=== PATIENT | female | born 1930 | race Hispanic/Latino ===

== ENCOUNTER 2016-09-10 18:50 | Inpatient (IN) | payer MEDICARE ==
[2016-09-10 18:58] VITALS: BMI 18.1
[2016-09-10] MEDS ORDERED: Sodium Chloride 0.9% 1,000 ML IV STA ×2 (19:00→21:54)
--- NOTE | 2016-09-10 19:23 | ED PDOC ---
Arrival/HPI - General Chief Complaint: Fever Time Seen by Provider: 09/10/16 18:51 - History of Present Illness Narrative History of Present Illness (Text): 09/10/16 19:31 An 86 year old female, whose past medical history includes L spine and pelvis fracture, hypertension and mood disorder, was sent from custodial to the emergency department for fever of 101.5, chest congestion and altered mental status. Limited HPI due to AMS. Symptom Onset: Sudden Symptom Course: Unchanged Activities at Onset: Rest Context: Other (custodial) Past Medical History - Provider Review Nursing Documentation Reviewed: Yes - Reproductive Menopause: Yes - Cardiac Hx Hypertension: Yes - Musculoskeletal/Rheumatological Hx Fractures: Yes (lumbar) - Gastrointestinal Hx Gastroesophageal Reflux: Yes - Genitourinary/Gynecological Hx Urinary Tract Infection: Yes - Psychiatric Hx Substance Use: No Family/Social History - Physician Review Nursing Documentation Reviewed: Yes Family/Social History: No Known Family HX Smoking Status: Never Smoked Hx Alcohol Use: No Hx Substance Use: No Allergies/Home Meds Allergies/Adverse Reactions: Allergies Penicillins Allergy (Verified 09/10/16 18:59) RASH Home Medications: Home Meds Medication Instructions Recorded Confirmed Acetaminophen [Tylenol 325mg tab] 325 mg PO Q4 09/10/16 09/10/16 Cholecalciferol (Vitamin D3) 5,000 unit PO DAILY 09/10/16 09/10/16 [Vitamin D3] Diltiazem HCl [Cardizem] 60 mg PO BID 09/10/16 09/10/16 Divalproex [Depakote Sprinkles] 250 mg PO Q8 09/10/16 09/10/16 Docusate [Colace] 100 mg PO BID 09/10/16 09/10/16 Folic Acid/Vit B Complex and C 1 tab PO DAILY 09/10/16 09/10/16 [Chery-Cady] LORazepam [Ativan] 0.5 mg PO TID PRN 09/10/16 09/10/16 Sennosides [Senna] 8.6 mg PO BID 09/10/16 09/10/16 traZODone [trazODONE HYDROCHLORIDE] 50 mg PO HS 09/10/16 09/10/16 Review of Systems - Review of Systems Systems not reviewed;Unavailable: Altered Mental Status Constitutional: Fevers (101.5) Cardiovascular: Other (chest congestion) Physical Exam - Physical Exam Physical Exam Limitations: Altered Mental Status Vital Signs Reviewed: Yes Vital Signs Pulse Resp BP Pulse Ox 09/10/16 20:01 83 18 143/58 L 98 Temperature: Afebrile (99.5 rectal) Blood Pressure: Hypotensive Pulse: Regular Respiratory Rate: Normal Appearance: Positive for: Ill-Appearing, Other (elderly, white female, nonverbal , contracted) Pain Distress: None () Mental Status: Positive for: Lethargic, other (AMS) - Systems Exam Head: Present: Atraumatic, Normocephalic Pupils: Present: PERRL Conjunctiva: Present: Other (pale) Mouth: Present: Dry Pharnyx: No: ERYTHEMA Respiratory/Chest: Present: Decreased Breath Sounds. No: Respiratory Distress Cardiovascular: Present: Regular Rate and Rhythm, Normal S1, S2. No: Murmurs Abdomen: Present: Normal Bowel Sounds. No: Tenderness, Distention, Peritoneal Signs Upper Extremity: Present: Normal Inspection. No: Cyanosis, Edema Lower Extremity: Present: Other (contracted). No: Edema Neurological: No: Speech Normal Skin: Present: Warm, Dry, Normal Color. No: Rashes Psychiatric: Present: Lethargic Medical Decision Making ED Course and Treatment: 09/10/16 19:20 Impression: An 86 year old female with fever of 101.5, chest congestion and altered mental status. Differential Diagnosis included but are not limited to: pneumonia vs electrolyte abnormality vs uti vs cva/tia Plan: -- EKG -- chest xray -- CT head -- labs -- IV fluids -- Urinalysis -- Reassess and disposition Progress Notes: 09/10/16 19:21 Chest xray: No active disease, interpreted by me. EKG: Ordered, reviewed, and independently interpreted the EKG. Rate : 82 BPM Rhythm : NSR Interpretation : QRS 130, nonspecific intraventricular conduction delay, normal axis, no ST/T changes. CT Head Without Intravenous Contrast FINDINGS: Brain: Moderate atrophy. No intracranial hemorrhage. No mass. Several scattered foci of decreased attenuation within periventricular/subcortical white matter. 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 No definite edema. Ventricles: No hydrocephalus. Bones/joints: No acute fracture. Soft tissues: Small parotid calcification. Sinuses: Few tiny maxillary retention cysts. Mastoid air cells: No mastoid effusion. Orbits: Unremarkable as visualized. IMPRESSION: 1. Nonspecific white matter changes. Acute infarction may be CT occult within first 24 hours. If a focal deficit persists, consider followup CT or MRI for further evaluation. 2. Incidental/non-acute findings are described above. Dictated and Authenticated by: Dane Diego MD 09/10/2016 9:00 PM Eastern Time ([place] & [place]) 09/10/16 21:28 Low H and H. Blood transfusion ordered. Consent given over phone, with nephew Arnulfo Winters. 09/10/16 22:01 Patient had a fever at [place] of 101.5 prior to arrival and was given tylenol so temp is only 99.5 here. urine shows UTI; CXR is clear. Labs with low H/H as noted. Chemistry with profound prerenal azotemia. Given IV antibiotics. Will need to be admitted. Spoke with patient's nephew, Arnulfo ANDREW, who confirmed that patient is DNR/DNI and avoid any invasive procedures, including pressors and central line. Patient will be admitted to Dr. Prakash's service as discussed with her. - Lab Interpretations Lab Results: 09/10/16 19:50 09/10/16 19:50 Lab Results 09/10/16 20:52: Urine Color Yellow, Urine Appearance Cloudy, Urine pH 6.5, Ur Specific [place] 1.015, Urine Protein Negative, Urine Glucose (UA) Negative, Urine Ketones Negative, Urine Blood Moderate H, Urine Nitrate Negative, Urine Bilirubin Negative, Urine Urobilinogen 0.2, Ur Leukocyte Esterase Large H, Urine RBC 5 - 10, Urine WBC 5 - 10, Ur Epithelial Cells 4 - 5, Amorphous Sediment Few, Urine Bacteria Many 09/10/16 19:50: Sodium 136, Chloride 110 H, Potassium 5.3 H, Carbon Dioxide 26, Anion Gap 5 L, BUN 90 H, Creatinine 1.9 H, Est GFR ( Amer) 30, Est GFR ( Non-Af Amer) 25, Random Glucose 100, Calcium 9.5, Phosphorus 3.9, Magnesium 2.3 H, Total Bilirubin 0.5, Direct Bilirubin 0.5 H, AST 60 H, ALT 33, Alkaline Phosphatase 62, Lactate Dehydrogenase 705 H, Total Creatine Kinase 53, Troponin I < 0.01, NT-Pro-B Natriuret Pep 1160 H, Total Protein 5.3 L, Albumin 2.4 L, Globulin 2.9, Albumin/Globulin Ratio 0.8 L, Lipase 83, Plasma Cortisol PM Pending 09/10/16 19:50: pO2 52, VBG pH 7.35, VBG pCO2 48.0, VBG HCO3 26.5, VBG Total CO2 28.0, VBG O2 Sat (Calc) 93.0 H, VBG Base Excess 0.8, VBG Potassium 5.3 H, Sodium 138.0, Chloride 112.0 H, Glucose 109 H, Lactate 0.8, FiO2 21.0, Venous Blood Potassium 5.3 H 09/10/16 19:50: PT 10.8, INR 1.00, APTT 27.3 09/10/16 19:50: WBC 7.6, RBC 1.88 L, Hgb 6.4 L*, Hct 19.5 L*, MCV 103.7, MCH 34.0, MCHC 32.8, RDW 13.3, Plt Count 359, MPV 8.4, Gran % 85.2 H, Lymph % (Auto ) 8.8 L, [place] % (Auto) 5.9, Eos % (Auto) 0.0 L, Baso % (Auto) 0.1, Gran # 6.51 H , Lymph # 0.7 L, [place] # 0.5, Eos # 0.0, Baso # 0.01, ESR 96 H I have reviewed the lab results: Yes - RAD Interpretation Radiology Orders: 09/10/16 18:59 Brain [HEAD W/O CONTRAST] [CT] Stat CHEST PORTABLE [RAD] Stat - EKG Interpretation Interpreted by ED Physician: Yes Type: 12 lead EKG - Medication Orders Current Medication Orders: Aztreonam (Azactam 1 Gm) 100 mls @ 100 mls/hr IVPB STAT STA PRN Reason: Protocol Stop: 09/10/16 22:41 Vancomycin HCl 1 gm/ Sodium (Chloride) 250 mls @ 133.333 mls/hr IV STAT STA PRN Reason: Protocol Stop: 09/10/16 23:34 Discontinued Medications Sodium Chloride (Sodium Chloride 0.9%) 1,000 mls @ 999 mls/hr IV .Q1H1M STA Stop: 09/10/16 20:00 Last Admin: 09/10/16 19:58 Dose: 999 mls/hr - Scribe Statement The provider has reviewed the documentation as recorded by the Scribe Hasmukh Rodrigues Provider Scribe Attestation: All medical record entries made by the Scribe were at my direction and personally dictated by me. I have reviewed the chart and agree that the record accurately reflects my personal performance of the history, physical exam, medical decision making, and the department course for this patient. I have also personally directed, reviewed, and agree with the discharge instructions and disposition. Disposition/Present on Arrival - Present on Arrival Any Indicators Present on Arrival: No History of DVT/PE: No History of Uncontrolled Diabetes: No Urinary Catheter: No History of Decub. Ulcer: No History Surgical Site Infection Following: None - Disposition Have Diagnosis and Disposition been Completed?: Yes Diagnosis: Urinary tract infection, Renal insufficiency, Altered mental status Disposition: HOSPITALIZED Disposition Time: 20:30 Patient Plan: Admission Condition: FAIR
[2016-09-10 20:04] LABS: VENOUS BLOOD GAS BASE EXCESS 0.8 mmol/L (0.0-2.0); VENOUS BLOOD GAS PO2 52 mm/Hg (30-55); VENOUS BLOOD PH 7.35 (7.32-7.43)
[2016-09-10 20:08] LABS: BASO # 0.01 K/mm3 (0.0-2.0); BASO % 0.1 % (0.0-3.0); GRAN # 6.51 (1.4-6.5); GRAN % 85.2 % (50.0-68.0); LYMPH # 0.7 (1.2-3.4); LYMPH % 8.8 % (22.0-35.0); MEAN CELL VOLUME 103.7 fL (80.0-105.0); MEAN CORPUSCULAR HGB CONC 32.8 g/dl (31.0-37.0); MEAN PLATELET VOLUME 8.4 fl (7.0-11.0); MONO # 0.5 (0.1-0.6); MONO % 5.9 % (1.0-6.0); PLATELET COUNT 359 10^3/uL (120.0-450.0); RBC 1.88 10^6/uL (3.5-6.1); RED CELL DISTRIBUTION WIDTH 13.3 % (11.5-14.5); WHITE BLOOD COUNT 7.6 10^3/ul (4.5-11.0)
[2016-09-10 20:12] LABS: HEMOGLOBIN 6.4 gm/dL (12.0-16.0)
[2016-09-10 20:21] LABS: PARTIAL THROMBOPLASTIN TIME 27.3 Seconds (23.7-30.8); PROTHROMBIN TIME 10.8 Seconds (9.9-11.8)
[2016-09-10 20:38] LABS: ALB/GLOB RATIO 0.8 (1.1-1.8); ALBUMIN 2.4 g/dL (3.0-4.8); ALT/SGPT 33 U/L (7-56); AST/SGOT 60 U/L (15-39); BILIRUBIN,DIRECT 0.5 mg/dL (0.0-0.4); BLOOD UREA NITROGEN 90 mg/dL (7-21); CALCIUM 9.5 mg/dL (8.4-10.5); GFR AFRICAN-AMERICAN 30; GFR NON-AFRICAN AMERICAN 25; LIPASE 83 U/L (23-300); MAGNESIUM 2.3 mg/dL (1.7-2.2)
[2016-09-10 20:40] LABS: B-TYPE NATRIURETIC PEPTIDE 1160 pg/mL (0-450); TROPONIN I < 0.01 ng/mL
--- NOTE | 2016-09-10 21:01 | CT ---
EXAM: CT Head Without Intravenous Contrast CLINICAL HISTORY: 86 years old, female; Signs and symptoms; Patient HX: Alt ms TECHNIQUE: Axial computed tomography images of the head/brain without intravenous contrast. This CT exam was performed using one or more of the following dose reduction techniques: automated exposure control, adjustment of the mA and/or kV according to patient size, and/or use of iterative reconstruction technique. COMPARISON: No relevant prior studies available. FINDINGS: Brain: Moderate atrophy. No intracranial hemorrhage. No mass. Several scattered foci of decreased attenuation within periventricular/subcortical white matter. 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 No definite edema. Ventricles: No hydrocephalus. Bones/joints: No acute fracture. Soft tissues: Small parotid calcification. Sinuses: Few tiny maxillary retention cysts. Mastoid air cells: No mastoid effusion. Orbits: Unremarkable as visualized. IMPRESSION: 1. Nonspecific white matter changes. Acute infarction may be CT occult within first 24 hours. If a focal deficit persists, consider followup CT or MRI for further evaluation. 2. Incidental/non-acute findings are described above.
[2016-09-10 21:32] LABS: PH,URINE 6.5 (4.7-8.0); URINE BILIRUBIN NEGATIVE (NEGATIVE); URINE BLOOD MODERATE (NEGATIVE); URINE GLUCOSE (UA) NEGATIVE (NEGATIVE); URINE LEUKOCYTE ESTERASE LARGE Leu/uL (NEGATIVE); URINE NITRATE NEGATIVE (NEGATIVE); URINE PROTEIN NEGATIVE mg/dL (<30 mg/dL); URINE UROBILINOGEN 0.2 E.U./dL (<1 E.U./dL)
[2016-09-10 21:39] LABS: URINE COLOR YELLOW (YELLOW)
[2016-09-10 21:40] LABS: URINE APPEARANCE CLOUDY (CLEAR)
[2016-09-10 21:42] LABS: URINE AMORPHOUS SEDIMENT FEW; URINE BACTERIA MANY (NEG)
[2016-09-10] MEDS ORDERED: Aztreonam 1 Gm in NS 100mL 100 ML IVPB STA (21:42)
--- NOTE | 2016-09-10 23:50 | CP.PCM.HP ---
History of Present Illness - History of Present Illness History of Present Illness: An 86 year old female, whose past medical history includes L spine and pelvis fracture, hypertension and mood disorder, [facility] department for fever of 101.5, chest congestion and altered mental status. Limited HPI due to AMS. pt joseph dh/o anemia , admitted pt to icu , id consult called looking for anb Present on Admission - Present on Admission Any Indicators Present on Admission: No Review of Systems - Review of Systems Systems not reviewed;Unavailable: Altered Mental Status - Constitutional Constitutional: Anorexia, Daytime Sleepiness, Frequent Falls - EENT Eyes: As Per HPI Ears: As Per HPI Nose/Mouth/Throat: As Per HPI - Respiratory Respiratory: As Per HPI - Gastrointestinal Gastrointestinal: As Per HPI Past Patient History - Tetanus Immunizations Tetanus Immunization: Unknown - Past Social History Smoking Status: Never Smoked Cigar Use: Yes - CARDIAC Hx Hypertension: Yes - MUSCULOSKELETAL/RHEUMATOLOGICAL Hx Fractures: Yes (lumbar) - GASTROINTESTINAL Hx Gastroesophageal Reflux: Yes - GENITOURINARY/GYNECOLOGICAL Hx Urinary Tract Infection: Yes - PSYCHIATRIC Hx Substance Use: No Meds Allergies/Adverse Reactions: Allergies Allergy/AdvReac Type Severity Reaction Status Date / Time Penicillins Allergy RASH Verified 09/10/16 18:59 Physical Exam - Constitutional Appears: Well - Head Exam Head Exam: ATRAUMATIC, NORMAL INSPECTION, NORMOCEPHALIC - Eye Exam Eye Exam: Normal appearance, PERRL Pupil Exam: NORMAL ACCOMODATION - ENT Exam ENT Exam: Mucous Membranes Moist, Normal Exam - Neck Exam Neck exam: Positive for: Normal Inspection - Respiratory Exam Respiratory Exam: Clear to Auscultation Bilateral, NORMAL BREATHING PATTERN - Cardiovascular Exam Cardiovascular Exam: REGULAR RHYTHM - GI/Abdominal Exam GI & Abdominal Exam: Normal Bowel Sounds, Soft. absent: Tenderness - Rectal Exam Rectal Exam: NORMAL INSPECTION - Exam Exam: Circumcision, NORMAL INSPECTION External exam: NORMAL EXTERNAL EXAM Speculum exam: NORMAL SPECULUM EXAM Bimanual exam: NORMAL BIMANUAL EXAM - Extremities Exam Extremities exam: Positive for: normal inspection - Back Exam Back exam: NORMAL INSPECTION - Neurological Exam Neurological exam: Alert, CN II-XII Intact, Normal Gait, Oriented x3, Reflexes Normal - Psychiatric Exam Psychiatric exam: Normal Affect, Normal Mood - Skin Skin Exam: Dry, Intact, Normal Color, Warm Results - Vital Signs Recent Vital Signs: Last Vital Signs Temp Pulse 79 09/10/16 21:57 Resp 20 09/10/16 21:57 BP 130/54 L 09/10/16 21:57 Pulse Ox 98 09/10/16 21:57 - Labs Result Diagrams: 09/10/16 19:50 09/10/16 19:50 Labs: Laboratory Results - last 24 hr 09/10/16 21:54 Blood Type O POSITIVE Antibody Screen Negative Crossmatch See Detail BBK History Checked No verified bt Assessment & Plan (1) Altered mental status Status: Acute (2) Renal insufficiency Status: Acute (3) Urinary tract infection Status: Acute - Assessment and Plan (Free Text) Assessment: An 86 year old female, whose past medical history includes L spine and pelvis fracture, hypertension and mood disorder, was [facility] from [facility] to the emergency department for fever of 101.5, chest congestion and altered mental status. Limited HPI due to A, id consult called , getting anb
[2016-09-11 00:33] LABS: VENOUS BLOOD GAS BASE EXCESS -0.8 mmol/L (0.0-2.0); VENOUS BLOOD GAS PO2 40 mm/Hg (30-55); VENOUS BLOOD PH 7.34 (7.32-7.43)
--- NOTE | 2016-09-11 00:52 | CP.PCM.PCO ---
Physician Communication Note - Physician Communication Note Physician Communication Note: Chart reviewed. Aztreonam restarted.
[2016-09-11 08:31] LABS: MEAN CELL VOLUME 97.9 fL (80.0-105.0); MEAN CORPUSCULAR HEMOGLOBIN 32.4 pg (25.0-35.0); MEAN CORPUSCULAR HGB CONC 33.1 g/dl (31.0-37.0); MEAN PLATELET VOLUME 8.3 fl (7.0-11.0); RBC 2.87 10^6/uL (3.5-6.1); RED CELL DISTRIBUTION WIDTH 15.5 % (11.5-14.5); WHITE BLOOD COUNT 5.4 10^3/ul (4.5-11.0)
[2016-09-11 08:36] LABS: HEMOGLOBIN 9.3 gm/dL (12.0-16.0)
[2016-09-11 08:45] LABS: ALB/GLOB RATIO 0.8 (1.1-1.8); ALBUMIN 2.2 g/dL (3.0-4.8); CALCIUM 9.3 mg/dL (8.4-10.5)
--- NOTE | 2016-09-11 09:49 | RAD ---
HISTORY: Sepsis Patient COMPARISON: No prior. FINDINGS: LUNGS: No active pulmonary disease. PLEURA: No significant pleural effusion identified, no pneumothorax apparent. CARDIOVASCULAR: Normal. OSSEOUS STRUCTURES: No significant abnormalities. VISUALIZED UPPER ABDOMEN: Normal. OTHER FINDINGS: None. IMPRESSION: No active disease.
[2016-09-11] MEDS: Non Formulary Medication (Folic Acid/Vit B Complex And C [Rena-Vite Tablet] 1 TAB) PO SCH (11:10)
[2016-09-11 11:59] LABS: TOTAL IRON BINDING CAPACITY 194 ug/dL (265-497)
[2016-09-11 12:08] LABS: % IRON SATURATION 36 % (20-55); IRON 71 ug/dL (45-180)
[2016-09-11] MEDS: Aztreonam 1 Gm in NS 100mL 100 ML IVPB SCH ×2 (12:17→23:07)
[2016-09-11 13:13] LABS: CORTISOL PM 20.6 ug/dL (1.7-14.1)
[2016-09-11] MEDS: Divalproex 125 mg EC Sprinkle Cap PO SCH ×2 (14:00→21:43)
--- NOTE | 2016-09-11 15:23 | US ---
PROCEDURE: Ultrasound of the Kidneys HISTORY: [facility] COMPARISON: None available. TECHNIQUE: Sonogram of the kidneys. FINDINGS: RIGHT KIDNEY: Measures: With a 1.7 cm cyst seen at the upper midpole right kidney cm. Normal in size and contour with increased parenchymal echogenicity suggests of intrinsic medical renal disease. No obstructive uropathy. No stone, solid mass lesion or hydronephrosis visualized. Two small simple cyst identified in the upper pole right kidney adjacent to each other, measuring 1.9 cm greatest dimension at the more anterior of the 2 cysts and 1.5 cm greatest dimension the more posterior. The 3rd cyst measures 1.2 cm at the upper midpole region. All appear simple in character and are avascular on color Doppler ultrasound. LEFT KIDNEY: Measures: 8.1 x 4.3 by 4.1 cm. Normal in size and contour with increased parenchymal echogenicity suggests of intrinsic medical renal disease. No obstructive uropathy. No stone, solid mass lesion or hydronephrosis visualized. Two tiny simple cyst identified at the upper pole right kidney avascular on color Doppler ultrasound. The more cephalad measures 1.5 cm greatest dimension the more caudad measures 1.7 cm. OTHER FINDINGS: None. IMPRESSION: No obstructive uropathy is identified bilaterally. A few small simple renal cysts are identified at the bilateral kidneys as discussed above.
[2016-09-11 17:48] LABS: FOLATE > 20.0 ng/mL
[2016-09-11] MEDS: Sodium Chloride 0.9% 1,000 ML IV SCH (19:32)
--- NOTE | 2016-09-11 19:57 | CP.PCM.CON ---
History of Present Illness - History of Present Illness History of Present Illness: Infectious Disease Consultation: September 11, 2016 86 yo female brought in from senior care for AMS and fevers up to 101.5 F and findings of chest congestion. The patient has a history of hypertension, mood disorder, and history of fractures of the left spine and pelvis. She received 2U of PRBCs. The patient has stabilized since and is maintained with IV fluids. She is unable to provide much history however. PMHx: Hypertension, mood disorder PSHx: repair of left spine and pelvic fractures? Allergies: PCN Social Hx: No cigarette use but prior Cigar use No illicit substances No EtOH that I am aware of Active Medications Acetaminophen (Tylenol 325mg Tab) 325 mg PO Q4 [facility] Last Admin: 09/11/16 17:55 Dose: Not Given Cholecalciferol (Vitamin D) 5,000 iu PO DAILY [facility] Last Admin: 09/11/16 11:11 Dose: Not Given Diltiazem HCl (Cardizem) 60 mg PO BID [facility] Last Admin: 09/11/16 17:52 Dose: Not Given Divalproex Sodium (Depakote Sprinkles) 250 mg PO Q8 [facility] PRN Reason: Protocol Last Admin: 09/11/16 14:00 Dose: Not Given Docusate Sodium (Colace Liquid) 100 mg PO BID [facility] Last Admin: 09/11/16 17:55 Dose: Not Given Aztreonam (Azactam 1 Gm) 100 mls @ 100 mls/hr IVPB Q12 [facility] PRN Reason: Protocol Last Admin: 09/11/16 12:17 Dose: 100 mls/hr Sodium Chloride (Sodium Chloride 0.9%) 1,000 mls @ 100 mls/hr IV .Q10H [facility] Last Admin: 09/11/16 19:32 Dose: 100 mls/hr Non-Formulary Medication (Folic Acid/Vit B Complex And C [Chery-Cady Tablet]) 1 tab PO DAILY [facility] Last Admin: 09/11/16 11:10 Dose: Not Given Sennosides (Senokot Tab) 8.6 mg PO BID [facility] Last Admin: 09/11/16 17:55 Dose: Not Given Family Hx: Unable to Obtain ROS: Unable to Obtain Past Patient History - Tetanus Immunizations Tetanus Immunization: Unknown - Past Social History Smoking Status: Never Smoked Cigar Use: Yes - CARDIAC Hx Hypertension: Yes - MUSCULOSKELETAL/RHEUMATOLOGICAL Hx Fractures: Yes (lumbar) - GASTROINTESTINAL Hx Gastroesophageal Reflux: Yes - GENITOURINARY/GYNECOLOGICAL Hx Urinary Tract Infection: Yes - PSYCHIATRIC Hx Substance Use: No Meds Allergies/Adverse Reactions: Allergies Allergy/AdvReac Type Severity Reaction Status Date / Time Penicillins Allergy RASH Verified 09/10/16 18:59 - Medications Medications: Current Medications Acetaminophen (Tylenol 325mg Tab) 325 mg PO Q4 [facility] Last Admin: 09/11/16 17:55 Dose: Not Given Cholecalciferol (Vitamin D) 5,000 iu PO DAILY [facility] Last Admin: 09/11/16 11:11 Dose: Not Given Diltiazem HCl (Cardizem) 60 mg PO BID [facility] Last Admin: 09/11/16 17:52 Dose: Not Given Divalproex Sodium (Depakote Sprinkles) 250 mg PO Q8 [facility] PRN Reason: Protocol Last Admin: 09/11/16 14:00 Dose: Not Given Docusate Sodium (Colace Liquid) 100 mg PO BID [facility] Last Admin: 09/11/16 17:55 Dose: Not Given Aztreonam (Azactam 1 Gm) 100 mls @ 100 mls/hr IVPB Q12 [facility] PRN Reason: Protocol Last Admin: 09/11/16 12:17 Dose: 100 mls/hr Sodium Chloride (Sodium Chloride 0.9%) 1,000 mls @ 100 mls/hr IV .Q10H [facility] Last Admin: 09/11/16 19:32 Dose: 100 mls/hr Non-Formulary Medication (Folic Acid/Vit B Complex And C [Chery-Cady Tablet]) 1 tab PO DAILY [facility] Last Admin: 09/11/16 11:10 Dose: Not Given Sennosides (Senokot Tab) 8.6 mg PO BID [facility] Last Admin: 09/11/16 17:55 Dose: Not Given Physical Exam - Constitutional Appears: Non-toxic, No Acute Distress, Chronically Ill - Head Exam Head Exam: ATRAUMATIC, NORMOCEPHALIC - Eye Exam Eye Exam: EOMI, PERRL Pupil Exam: NORMAL ACCOMODATION, PERRL - ENT Exam ENT Exam: Mucous Membranes Moist, Normal External Ear Exam, TM's Normal Bilaterally - Neck Exam Neck exam: Positive for: Full Rom, Normal Inspection - Respiratory Exam Respiratory Exam: Clear to Auscultation Bilateral, NORMAL BREATHING PATTERN. absent: Rales, Rhonchi, Wheezes - Cardiovascular Exam Cardiovascular Exam: REGULAR RHYTHM, RRR, +S1, +S2 - GI/Abdominal Exam GI & Abdominal Exam: Normal Bowel Sounds, Soft. absent: Distended, Tenderness - Extremities Exam Extremities exam: Positive for: full ROM, normal inspection - Neurological Exam Neurological exam: Alert, CN II-XII Intact, Oriented x3 - Psychiatric Exam Psychiatric exam: Normal Affect, Normal Mood - Skin Skin Exam: Dry, Intact, Normal Color Results - Vital Signs Recent Vital Signs: Last Vital Signs Temp 97.3 F L 09/11/16 18:00 Pulse 78 09/11/16 18:00 Resp 18 09/11/16 18:00 BP 112/78 09/11/16 18:00 Pulse Ox 99 09/11/16 06:00 - Labs Result Diagrams: 09/11/16 08:28 09/11/16 08:28 Labs: Laboratory Results - last 24 hr 09/10/16 09/10/16 09/10/16 21:54 22:12 23:54 WBC RBC Hgb Hct MCV MCH MCHC RDW Plt Count MPV pO2 40 VBG pH 7.34 VBG pCO2 47.0 VBG HCO3 25.4 VBG Total CO2 26.8 VBG O2 Sat (Calc) 83.3 H VBG Base Excess -0.8 L VBG Potassium 5.4 H Sodium 146.0 Chloride 108.0 H Glucose 103 Lactate 0.6 L FiO2 21.0 Potassium Carbon Dioxide Anion Gap BUN Creatinine Est GFR ( Amer) Est GFR (Non-Af Amer) Random Glucose Calcium Iron TIBC % Saturation Transferrin Ferritin Total Bilirubin AST ALT Alkaline Phosphatase Total Protein Albumin Globulin Albumin/Globulin Ratio Vitamin B12 Folate Venous Blood Potassium 5.4 H Blood Type O POSITIVE Blood Type Confirm O POSITIVE Antibody Screen Negative Crossmatch See Detail BBK History Checked No verified bt 09/11/16 09/11/16 09/11/16 08:20 08:28 08:28 WBC 5.4 D RBC 2.87 L Hgb 9.3 L Hct 28.1 L MCV 97.9 MCH 32.4 MCHC 33.1 RDW 15.5 H Plt Count 290 MPV 8.3 pO2 VBG pH VBG pCO2 VBG HCO3 VBG Total CO2 VBG O2 Sat (Calc) VBG Base Excess VBG Potassium Sodium 141 Chloride 110 H Glucose Lactate FiO2 Potassium 4.6 Carbon Dioxide 24 Anion Gap 12 BUN 75 H Creatinine 1.7 H Est GFR ( Amer) 34 Est GFR (Non-Af Amer) 28 Random Glucose 78 Calcium 9.3 Iron TIBC % Saturation Transferrin Ferritin 202.0 Total Bilirubin 0.6 AST 33 ALT 34 Alkaline Phosphatase 57 Total Protein 4.9 L Albumin 2.2 L Globulin 2.7 Albumin/Globulin Ratio 0.8 L Vitamin B12 963 H Folate > 20.0 Venous Blood Potassium Blood Type Blood Type Confirm Antibody Screen Crossmatch BBK History Checked 09/11/16 09/11/16 11:30 11:30 WBC RBC Hgb Hct MCV MCH MCHC RDW Plt Count MPV pO2 VBG pH VBG pCO2 VBG HCO3 VBG Total CO2 VBG O2 Sat (Calc) VBG Base Excess VBG Potassium Sodium Chloride Glucose Lactate FiO2 Potassium Carbon Dioxide Anion Gap BUN Creatinine Est GFR ( Amer) Est GFR (Non-Af Amer) Random Glucose Calcium Iron 71 TIBC 194 L % Saturation 36 Transferrin 130.48 L Ferritin Total Bilirubin AST ALT Alkaline Phosphatase Total Protein Albumin Globulin Albumin/Globulin Ratio Vitamin B12 Folate Venous Blood Potassium Blood Type Blood Type Confirm Antibody Screen Crossmatch BBK History Checked Assessment & Plan - Assessment and Plan (Free Text) Assessment: 86 yo female brought in [facility] for [facility]MS, fevers up to 101.5, and mood disorder found to have severe anemia and a highly suggestive urinalysis for UTI. The patient is more awake now after 2 units of PRBCs were given. The patient has pancultures taken. Started on Aztreonam IV for antibiotic coverage due to the unknown reaction to PCN medications. She has been afebrile in the hospital so far. Fevers may have been secondary to dehydration and severe anemia if not a possible UTI. Await culture results to potentially deescalate antibiotic coverage if possible. Continue to monitor Hgb/Hct. Continue to monitor fever trend. Supportive care. Thank you for allowing me to participate in the care of the patient, we will follow with you.
[2016-09-11 22:25] LABS: ALB/GLOB RATIO 0.9 (1.1-1.8); ALBUMIN 2.4 g/dL (3.0-4.8); CALCIUM 9.5 mg/dL (8.4-10.5)
[2016-09-11 22:41] LABS: TROPONIN I 0.01 ng/mL
--- NOTE | 2016-09-11 23:01 | CP.PCM.PN ---
Subjective - Date & Time of Evaluation Date of Evaluation: 09/11/16 Time of Evaluation: 07:30 - Subjective Subjective: 86 yo [facility] for AMS and fevers up to 101.5 F and findings of chest congestion. The patient has a history of hypertension, mood disorder, and history of fractures of the left spine and pelvis. She received 2U of PRBCs. The patient has stabilized since and is maintained with IV fluids. She is unable to provide much history however. seen in tele , awake but non verbal Objective - Vital Signs/Intake and Output Vital Signs (last 24 hours): Temp Pulse Resp BP Pulse Ox 97.3 F L 78 18 112/78 99 09/11/16 18:00 09/11/16 18:00 09/11/16 18:00 09/11/16 18:00 09/11/16 06:00 Intake and Output: 09/11/16 09/12/16 18:59 06:59 Intake Total 335 Balance 335 - Medications Medications: Current Medications Acetaminophen (Tylenol 325mg Tab) 325 mg PO Q4 [facility] Last Admin: 09/11/16 21:42 Dose: 325 mg Albuterol/Ipratropium (Duoneb 3 Mg/0.5 Mg (3 Ml) Ud) 3 ml IH [id number] [facility] Cholecalciferol (Vitamin D) 5,000 iu PO DAILY [facility] Last Admin: 09/11/16 11:11 Dose: Not Given Diltiazem HCl (Cardizem) 60 mg PO BID [facility] Last Admin: 09/11/16 17:52 Dose: Not Given Divalproex Sodium (Depakote Sprinkles) 250 mg PO Q8 [facility] PRN Reason: Protocol Last Admin: 09/11/16 21:43 Dose: 250 mg Docusate Sodium (Colace Liquid) 100 mg PO BID [facility] Last Admin: 09/11/16 17:55 Dose: Not Given Aztreonam (Azactam 1 Gm) 100 mls @ 100 mls/hr IVPB Q12 [facility] PRN Reason: Protocol Last Admin: 09/11/16 12:17 Dose: 100 mls/hr Sodium Chloride (Sodium Chloride 0.9%) 1,000 mls @ 100 mls/hr IV .Q10H [facility] Last Admin: 09/11/16 19:32 Dose: 100 mls/hr Non-Formulary Medication (Folic Acid/Vit B Complex And C [Chery-Cady Tablet]) 1 tab PO DAILY [facility] Last Admin: 09/11/16 11:10 Dose: Not Given Sennosides (Senokot Tab) 8.6 mg PO BID [facility] Last Admin: 09/11/16 17:55 Dose: Not Given - Labs Labs: 09/11/16 08:28 09/11/16 22:09 PT 10.8 Seconds (9.9-11.8) 09/10/16 19:50 INR 1.00 (0.93-1.08) 09/10/16 19:50 APTT 27.3 Seconds (23.7-30.8) 09/10/16 19:50 - Constitutional Appears: Chronically Ill - Head Exam Head Exam: ATRAUMATIC, NORMAL INSPECTION, NORMOCEPHALIC - Eye Exam Eye Exam: EOMI, Normal appearance, PERRL Pupil Exam: NORMAL ACCOMODATION, PERRL - ENT Exam ENT Exam: Mucous Membranes Moist, Normal Exam - Neck Exam Neck Exam: Full ROM, Normal Inspection. absent: Lymphadenopathy - Respiratory Exam Respiratory Exam: Clear to Ausculation Bilateral, NORMAL BREATHING PATTERN - Cardiovascular Exam Cardiovascular Exam: REGULAR RHYTHM, +S1, +S2. absent: Murmur - GI/Abdominal Exam GI & Abdominal Exam: Soft, Normal Bowel Sounds. absent: Tenderness - Rectal Exam Rectal Exam: NORMAL INSPECTION - Exam Exam: Circumcision, NORMAL INSPECTION External exam: NORMAL EXTERNAL EXAM Speculum exam: NORMAL SPECULUM EXAM Bimanual exam: NORMAL BIMANUAL EXAM - Extremities Exam Extremities Exam: Full ROM, Normal Capillary Refill, Normal Inspection. absent : Joint Swelling, Pedal Edema - Back Exam Back Exam: NORMAL INSPECTION - Neurological Exam Neurological Exam: Alert, Awake, CN II-XII Intact - Psychiatric Exam Psychiatric exam: Normal Affect, Normal Mood - Skin Skin Exam: Dry, Normal Color, Warm Additional comments: sacral decubetus ulcer Assessment and Plan (1) Altered mental status Status: Acute (2) Renal insufficiency Status: Acute (3) Urinary tract infection Status: Acute (4) Anemia Status: Acute - Assessment and Plan (Free Text) Assessment: - Assessment and Plan (Free Text) 86 yo [facility] for [facility], fevers up to 101.5, and mood disorder found to have severe anemia and a highly suggestive urinalysis for UTI. The patient is more awake now after 2 units of PRBCs were given. The patient has pancultures taken. Started on Aztreonam IV for antibiotic coverage due to the unknown reaction to PCN medications. She has been afebrile in the hospital so far. Fevers may have been secondary to dehydration and severe anemia if not a possible UTI. Await culture results to potentially deescalate antibiotic coverage if possible. Continue to monitor Hgb/Hct. Continue to monitor fever trend.surgicle consult for decubetus ulcers
--- NOTE | 2016-09-12 00:35 | CP.PCM.CON ---
History of Present Illness - History of Present Illness History of Present Illness: General Surgery Dr. Melvin (covering Dr. Hill) 86 demented F w/ PMHx of HTN [facility]vers, AMS, and chest congestion. Surgery consulted for sacral decubitus ulcers. Pt altered and unable to answer questions. PMHx:Hypertension, mood disorder, dementia Meds: reviewed in chart All: PCN - unknown rxn PSHx: repair of left spine and pelvic fractures? SHx: denies tobacco, EtOH, drug use FHx: noncontributory Review of Systems - Review of Systems Systems not reviewed;Unavailable: Altered Mental Status Past Patient History - Tetanus Immunizations Tetanus Immunization: Unknown - Past Social History Smoking Status: Never Smoked Cigar Use: Yes - CARDIAC Hx Hypertension: Yes - MUSCULOSKELETAL/RHEUMATOLOGICAL Hx Fractures: Yes (lumbar) - GASTROINTESTINAL Hx Gastroesophageal Reflux: Yes - GENITOURINARY/GYNECOLOGICAL Hx Urinary Tract Infection: Yes - PSYCHIATRIC Hx Substance Use: No Meds Allergies/Adverse Reactions: Allergies Allergy/AdvReac Type Severity Reaction Status Date / Time Penicillins Allergy RASH Verified 09/10/16 18:59 - Medications Medications: Current Medications Acetaminophen (Tylenol 325mg Tab) 325 mg PO Q4 [facility] Last Admin: 09/11/16 21:42 Dose: 325 mg Albuterol/Ipratropium (Duoneb 3 Mg/0.5 Mg (3 Ml) Ud) 3 ml IH [id number] [facility] Cholecalciferol (Vitamin D) 5,000 iu PO DAILY [facility] Last Admin: 09/11/16 11:11 Dose: Not Given Diltiazem HCl (Cardizem) 60 mg PO BID [facility] Last Admin: 09/11/16 17:52 Dose: Not Given Divalproex Sodium (Depakote Sprinkles) 250 mg PO Q8 [facility] PRN Reason: Protocol Last Admin: 09/11/16 21:43 Dose: 250 mg Docusate Sodium (Colace Liquid) 100 mg PO BID [facility] Last Admin: 09/11/16 17:55 Dose: Not Given Aztreonam (Azactam 1 Gm) 100 mls @ 100 mls/hr IVPB Q12 [facility] PRN Reason: Protocol Last Admin: 09/11/16 23:07 Dose: 100 mls/hr Sodium Chloride (Sodium Chloride 0.9%) 1,000 mls @ 100 mls/hr IV .Q10H [facility] Last Admin: 09/11/16 19:32 Dose: 100 mls/hr Non-Formulary Medication (Folic Acid/Vit B Complex And C [Chery-Cady Tablet]) 1 tab PO DAILY [facility] Last Admin: 09/11/16 11:10 Dose: Not Given Sennosides (Senokot Tab) 8.6 mg PO BID [facility] Last Admin: 09/11/16 17:55 Dose: Not Given Physical Exam - Constitutional Appears: Non-toxic, No Acute Distress, Unkempt, Chronically Ill - Head Exam Head Exam: NORMAL INSPECTION - ENT Exam ENT Exam: Mucous Membranes Moist - Respiratory Exam Respiratory Exam: NORMAL BREATHING PATTERN. absent: Accessory Muscle Use, Respiratory Distress - Cardiovascular Exam Cardiovascular Exam: absent: Bradycardia, Tachycardia - GI/Abdominal Exam GI & Abdominal Exam: Soft. absent: Distended, Tenderness - Extremities Exam Additional comments: stage 1&2 b/l foot and ankle pressure ulcers Stage 3 R hip pressure wound Sacral decubitius pressure ulcer w/ eschar present - Neurological Exam Neurological exam: Altered - Skin Skin Exam: Dry, Normal Color, Warm Results - Vital Signs Recent Vital Signs: Last Vital Signs Temp 97.3 F L 09/11/16 18:00 Pulse 78 09/11/16 18:00 Resp 18 09/11/16 18:00 BP 112/78 09/11/16 18:00 Pulse Ox 99 09/11/16 06:00 - Labs Result Diagrams: 09/11/16 08:28 09/11/16 22:09 Labs: Laboratory Results - last 24 hr 09/10/16 09/10/16 09/11/16 21:54 23:54 08:20 WBC RBC Hgb Hct MCV MCH MCHC RDW Plt Count MPV pO2 40 VBG pH 7.34 VBG pCO2 47.0 VBG HCO3 25.4 VBG Total CO2 26.8 VBG O2 Sat (Calc) 83.3 H VBG Base Excess -0.8 L VBG Potassium 5.4 H Sodium 146.0 Chloride 108.0 H Glucose 103 Lactate 0.6 L FiO2 21.0 Potassium Carbon Dioxide Anion Gap BUN Creatinine Est GFR ( Amer) Est GFR (Non-Af Amer) Random Glucose Calcium Iron TIBC % Saturation Transferrin Ferritin 202.0 Total Bilirubin AST ALT Alkaline Phosphatase Lactate Dehydrogenase Total Creatine Kinase Troponin I Total Protein Albumin Globulin Albumin/Globulin Ratio Vitamin B12 963 H Folate > 20.0 Venous Blood Potassium 5.4 H Blood Type O POSITIVE Antibody Screen Negative Crossmatch See Detail BBK History Checked No verified bt 09/11/16 09/11/16 09/11/16 08:28 08:28 11:30 WBC 5.4 D RBC 2.87 L Hgb 9.3 L Hct 28.1 L MCV 97.9 MCH 32.4 MCHC 33.1 RDW 15.5 H Plt Count 290 MPV 8.3 pO2 VBG pH VBG pCO2 VBG HCO3 VBG Total CO2 VBG O2 Sat (Calc) VBG Base Excess VBG Potassium Sodium 141 Chloride 110 H Glucose Lactate FiO2 Potassium 4.6 Carbon Dioxide 24 Anion Gap 12 BUN 75 H Creatinine 1.7 H Est GFR ( Amer) 34 Est GFR (Non-Af Amer) 28 Random Glucose 78 Calcium 9.3 Iron 71 TIBC 194 L % Saturation 36 Transferrin Ferritin Total Bilirubin 0.6 AST 33 ALT 34 Alkaline Phosphatase 57 Lactate Dehydrogenase Total Creatine Kinase Troponin I Total Protein 4.9 L Albumin 2.2 L Globulin 2.7 Albumin/Globulin Ratio 0.8 L Vitamin B12 Folate Venous Blood Potassium Blood Type Antibody Screen Crossmatch BBK History Checked 09/11/16 09/11/16 11:30 22:09 WBC RBC Hgb Hct MCV MCH MCHC RDW Plt Count MPV pO2 VBG pH VBG pCO2 VBG HCO3 VBG Total CO2 VBG O2 Sat (Calc) VBG Base Excess VBG Potassium Sodium 142 Chloride 111 H Glucose Lactate FiO2 Potassium 4.5 Carbon Dioxide 23 Anion Gap 13 BUN 67 H Creatinine 1.5 H Est GFR ( Amer) 40 Est GFR (Non-Af Amer) 33 Random Glucose 79 Calcium 9.5 Iron TIBC % Saturation Transferrin 130.48 L Ferritin Total Bilirubin 0.6 AST 28 ALT 35 Alkaline Phosphatase 68 Lactate Dehydrogenase 538 Total Creatine Kinase 48 Troponin I 0.01 Total Protein 5.2 L Albumin 2.4 L Globulin 2.8 Albumin/Globulin Ratio 0.9 L Vitamin B12 Folate Venous Blood Potassium Blood Type Antibody Screen Crossmatch BBK History Checked Assessment & Plan - Assessment and Plan (Free Text) Assessment: 86 y/o F w/ multiple pressure ulcers - air mattress - turn Q2 - heel off stripe matcher - Santyl to R hip and sacral decubitus ulcer BID - possible bedside debridement later today - further recs per Dr. Melvin Will discuss w/ Dr. Olegario Brasher DO PGY2
[2016-09-12] MEDS: Albuterol-Ipratrop 3 mg / 0.5 (3 ml) UD IH SCH ×4 (03:00→20:21)
[2016-09-12] MEDS: Divalproex 125 mg EC Sprinkle Cap PO SCH ×3 (05:27→23:30)
[2016-09-12] MEDS: Sodium Chloride 0.9% 1,000 ML IV SCH ×2 (05:31→11:05)
[2016-09-12 06:53] VITALS: RESP 20
--- NOTE | 2016-09-12 08:22 | CON ---
DATE: 09/11/2016 REFERRING PHYSICIAN: Dr. Carrion. REASON FOR CONSULTATION: Acute kidney injury. HISTORY OF PRESENT ILLNESS: This is an 86-year-old female, who is the past medical history of lumbar spine and pelvic fracture, hypertension, coming in because of fever. The patient had altered mental status and she has brought here for further evaluation. The patient is confused and not able to give much of her history. ALLERGIES: ALLERGIES TO PENICILLIN. PAST MEDICAL HISTORY: Hypertension, GERD, UTI, lumbar fracture. SOCIAL HISTORY: Unable to assess. FAMILY HISTORY: Unable to assess. PHYSICAL EXAMINATION: VITAL SIGNS: Temperature is 98, pulse of 56, blood pressure 127/51, respirations of 18. Height is 5 feet 4 inches, weight is 106 pounds. GENERAL: The patient lying in bed, uncomfortable, and in no acute distress. HEENT: Atraumatic and normocephalic. Anicteric sclerae. Moist mucosa. [place] conjunctivae. No oral lesions. NECK: No JVD, anterior and posterior adenopathy, thyromegaly, or bruits. CARDIOVASCULAR: S1 and S2 regular. No murmur, rubs, or gallop. LUNGS: Clear to auscultation bilaterally. No wheezes, rales, or rhonchi. ABDOMEN: Bowel sounds are positive. Soft, nontender and nondistended. No hepatosplenomegaly. No rebound and no guarding EXTREMITIES: No cyanosis, clubbing, or edema. NEUROLOGIC: , no facial asymmetry. Difficult to get full exam. The patient is not able to move her extremities as well. PSYCHIATRIC: unable to assess. GENITOURINARY: No CVA tenderness. VASCULAR: 2+ pulses in the carotid pulses and pedal pulses. SKIN: No erythema or nodules SPINE: Shows normal curvature. EXTREMITIES: No cyanosis or clubbing, no edema. LABORATORY DATA: White count of 7.6, hemoglobin of 6.4 repeat is 9.3. Chemistry shows a sodium 136, potassium 5.3, creatinine is 1.9 repeat is 1.7, saturation is 36%, albumin is 2.4. Urine shows a blood is moderate. Nitrites are negative. Esterase is large. PH is 7.35, PCO2 is 48, 21%. Chest x-ray done shows no active disease. CT of the head done shows no specific white matter changes ASSESSMENT: 1. Acute kidney injury. 2. Urinary tract infection. 3. Delerium 4. Hypertension. PLAN: The patient is currently admitted to the hospital. The patient has been started on aztreonam for antibiotics. She dose have penicillin allergies. The patient is on Colace for constipation, the patient is given IV fluids. I will order a urine studies to evaluate further, follow repeat blood works, the patient will get renal ultrasound done. Thank you for allowing me to participate in care of your patient. Jass Landry MD MTDD
[2016-09-12 08:45] LABS: ALB/GLOB RATIO 0.8 (1.1-1.8); ALBUMIN 2.2 g/dL (3.0-4.8); CALCIUM 9.3 mg/dL (8.4-10.5)
--- NOTE | 2016-09-12 09:19 | PN ---
PROCEDURE DATE: 09/12/2016 SUBJECTIVE: The patient with no complaints. PHYSICAL EXAMINATION: VITAL SIGNS: Temperature is 98.1, pulse is 92, blood pressure is 123/62, and respirations 18. GENERAL: The patient is lying in bed, flat, comfortable. HEENT: No oral lesion. Anicteric sclerae. Moist mucosa. NECK: No JVD, adenopathy, or thyromegaly. CARDIOVASCULAR: S1 and S2, regular. No murmurs, rubs, or gallops. LUNGS: Clear to auscultation bilaterally. No wheeze, rales, or rhonchi. ABDOMEN: Bowel sounds are positive, soft, nontender and nondistended. EXTREMITIES: No cyanosis, clubbing or edema. LABS: Have been reviewed. IMAGING: Renal ultrasound done shows no obstructive uropathy, a small simple renal cyst is identified at the bilateral kidneys. ASSESSMENT: 1. Acute kidney injury, improving 2. Sacral pressure ulcer, unstageable. 3. Hypertension. 4. Gastroesophageal reflux disease. 5. Dementia, Alzheimer's type. 6. DNR/DNI. PLAN: The patient's blood cultures x2, which were negative. She came with a fever. She is on aztreonam for antibiotics. The patient is on Cardizem. She has been given IV fluids. I have ordered an urine studies. She has a creatinine that is improving. She is receiving IV fluids. We will continue with the IV fluids. We will decrease her rate. Jass Landry MD MTDD
--- NOTE | 2016-09-12 09:40 | CARD ---
APPROVED REPORT EKG Measurement Heart [id number] <Conclusion> Normal sinus rhythm RBBB NSSTW changes
--- NOTE | 2016-09-12 10:21 | PQF ANEMIA ---
This form is a permanent part of the medical record Dr. Prakash, Patient admitted with UTI and severe anemia requiring 2 units of PRBC transfused. Can you provide any more specificity about type/cause of anemia present in this patient? Clarification of your documentation is requested to better reflect the severity of illness and intensity of treatment of your patient. Indicators present x[] Anemia [] Drop in H&H from []___ to []___ [] Hypotension [] GI Bleed x[] Transfusion(s) [] Acute bleed other sites [] Tachycardia [] Surgical Procedure Blood Loss (expected not a complication) Other:[] Location in the medical record that reflects the above clinical findings: [] Treatment Provided: [] PHYSICIAN'S RESPONSE Based on your medical judgment of the clinical indicators outlined above, are you treating this patient for a known or suspected: [] Acute blood loss anemia [] Chronic blood loss anemia [] Acute on Chronic blood loss anemia [] Anemia due to malignancy [] Anemia due to chemotherapy or radiation therapy [x] Anemia of Chronic Disease, please specify: [x]_ri [] Other, please indicate type of anemia []____ [] If Unable to Determine, please check the box, sign and date. Present On Admission (POA) Indicator: [x] Present at the time of admission [] Not present at the time of admission [] Clinically Undetermined In responding to this query, please exercise your independent professional judgment. The fact that a question is asked does not imply that any particular answer is desired or expected. Thank you for your clarification on this documentation. If you have any questions please call:[ ] * Thank you, [ ]Jose Manuel Martell [facility] #[id number] managing jeweler SHANNAN
--- NOTE | 2016-09-12 11:10 | CON ---
DATE: 09/11/2016 REFERRING PHYSICIAN: Dr. Prakash. REASON FOR CONSULTATION: Fever, cough. HISTORY OF PRESENT ILLNESS: This is an 86-year-old female with past medical history significant for mood disorder, hypertension, history of hip fracture who developed fever up to 101 at [facility], sent to ER where she was admitted for further workup. She is pretty sleepy and tired, arousable. Mild cough. No hemoptysis, no hematemesis, no hematuria. No diarrhea reported. PAST MEDICAL HISTORY: Hypertension, mood disorder, history of GERD, reoccurring UTI in the past. FAMILY HISTORY: No significant cardiopulmonary disease recorded. SOCIAL HISTORY: [facility] resident. No smoking or alcohol use. ALLERGIES: PENICILLIN, DEVELOPS RASH. MEDICATIONS: She is on Azactam 1 g IV q. 12 hours, Cardizem 60 mg twice a day, Colace 100 mg twice a day, Depakote 250 mg q. 8 hours, vitamins 1 tab daily, Senokot p.r.n., IV fluid normal saline 100 mL/hr,Tylenol p.r.n., vitamin D 500 IU daily. REVIEW OF SYSTEMS: She is sleepy arousable, some cough. No sputum production. No hemoptysis, no hematemesis, no hematuria. No diarrhea. No legs swelling reported. PHYSICAL EXAMINATION GENERAL: Lying in the bed, in no acute distress. VITAL SIGNS: Temperature is 98, heart rate 78, respiratory rate is 18, blood pressure 112/78, pulse ox 99% on nasal cannula. HEENT: Small oral cavity. NECK: Supple. No JVD. LUNGS: Poor effort. Fair airflow with few rhonchi. HEART: S1 and S2. ABDOMEN: Soft, nontender, no organomegaly. EXTREMITIES: No edema. NEUROLOGIC: Awake, alert, follow much commands. LABORATORY DATA: Hemoglobin 9.3, hematocrit 28.1. On admission, her hemoglobin was 6.4 though. WBC 5.4, platelet count is 290. An ABG done yesterday shows pH 7.34, pCO2 is 47, O2 is 40. Sodium 141, potassium 4.6, chloride 110, bicarbonate is 24, BUN 75, creatinine 1.7, glucose 78, calcium 9.3, iron is 71, TIBC is 194. Transferrin 130, ferritin 202. AST 33, ALT 34, alk phos is 57, C-reactive protein is more than 15, albumin 2.2, B12 is 963, folate more than 20. Urinalysis shows wbc 5 to 10, rbc 5 to 10, large esterase. Has a renal ultrasound done, shows no obstructive uropathy is identified, few small simple renal cyst identified. CAT scan of the head was done which shows no specific white matter changes, acute infarction, maybe CT at [place] within first 24 hours. IMPRESSION AND PLAN: Sepsis, acute bronchitis, rule out urinary tract infection, hypertension, history of gastroesophageal reflux disease. Continue antibiotics, keep head elevated at 45 degrees. Also has adrenal failure with severe anemia. Sent stool for stool guaiac. Swallow evaluation, may have oropharyngeal dysphagia. Thank you very much. We will follow with you. Rosie Gutierres MD
[2016-09-12] MEDS: Aztreonam 1 Gm in NS 100mL 100 ML IVPB SCH ×2 (11:12→23:30)
[2016-09-12] MEDS ORDERED: Collagenase 250 Units/gm Ointment(30 gm) TOP SCH (17:00)
--- NOTE | 2016-09-12 18:49 | CP.PCM.PN ---
Subjective - Date & Time of Evaluation Date of Evaluation: 09/12/16 Time of Evaluation: 17:30 - Subjective Subjective: Infectious Disease Follow Up: September 12, 2016 86 yo female brought in from [facility]ial for AMS and fevers up to 101.5 F and findings of chest congestion. The patient has a history of hypertension, mood disorder, and history of fractures of the left spine and pelvis. She received 2U of PRBCs. The patient has stabilized since and is maintained with IV fluids. She is unable to provide much history however. Reviewing the custodial records, the patient has a baseline dementia. Objective - Vital Signs/Intake and Output Vital Signs (last 24 hours): Temp Pulse Resp BP Pulse Ox 98.4 F 77 20 123/46 L 97 09/12/16 17:36 09/12/16 18:21 09/12/16 17:36 09/12/16 18:21 09/12/16 06:00 Intake and Output: 09/12/16 09/12/16 06:59 18:59 Intake Total 1200 Balance 1200 - Medications Medications: Current Medications Acetaminophen (Tylenol 325mg Tab) 325 mg PO Q4 [facility] Last Admin: 09/12/16 18:19 Dose: 325 mg Albuterol/Ipratropium (Duoneb 3 Mg/0.5 Mg (3 Ml) Ud) 3 ml IH [id number] [facility] Last Admin: 09/12/16 13:41 Dose: 3 ml Cholecalciferol (Vitamin D) 5,000 iu PO DAILY [facility] Last Admin: 09/12/16 11:12 Dose: 5,000 iu Collagenase (Santyl) 0 gm TOP DAILY [facility] Diltiazem HCl (Cardizem) 60 mg PO BID [facility] Last Admin: 09/12/16 18:21 Dose: 60 mg Divalproex Sodium (Depakote Sprinkles) 250 mg PO Q8 [facility] PRN Reason: Protocol Last Admin: 09/12/16 18:20 Dose: 250 mg Docusate Sodium (Colace Liquid) 100 mg PO BID [facility] Last Admin: 09/12/16 18:20 Dose: 100 mg Aztreonam (Azactam 1 Gm) 100 mls @ 100 mls/hr IVPB Q12 [facility] PRN Reason: Protocol Last Admin: 09/12/16 11:12 Dose: 100 mls/hr Sodium Chloride (Sodium Chloride 0.9%) 1,000 mls @ 50 mls/hr IV .Q20H [facility] Last Admin: 09/12/16 11:05 Dose: 50 mls/hr Non-Formulary Medication (Folic Acid/Vit B Complex And C [Chery-Cady Tablet]) 1 tab PO DAILY [facility] Last Admin: 09/11/16 11:10 Dose: Not Given Sennosides (Senokot Tab) 8.6 mg PO BID [facility] Last Admin: 09/12/16 18:22 Dose: 8.6 mg - Labs Labs: 09/11/16 08:28 09/12/16 06:30 PT 10.8 Seconds (9.9-11.8) 09/10/16 19:50 INR 1.00 (0.93-1.08) 09/10/16 19:50 APTT 27.3 Seconds (23.7-30.8) 09/10/16 19:50 - Constitutional Appears: Non-toxic, No Acute Distress, Chronically Ill - Head Exam Head Exam: ATRAUMATIC, NORMOCEPHALIC - Eye Exam Eye Exam: EOMI, PERRL Pupil Exam: NORMAL ACCOMODATION, PERRL - ENT Exam ENT Exam: Mucous Membranes Moist, Normal External Ear Exam, TM's Normal Bilaterally - Neck Exam Neck Exam: Full ROM, Normal Inspection - Respiratory Exam Respiratory Exam: Clear to Ausculation Bilateral, NORMAL BREATHING PATTERN. absent: Rales, Rhonchi, Wheezes - Cardiovascular Exam Cardiovascular Exam: REGULAR RHYTHM, RRR, +S1, +S2 - GI/Abdominal Exam GI & Abdominal Exam: Soft, Normal Bowel Sounds. absent: Distended, Tenderness - Extremities Exam Extremities Exam: Full ROM, Normal Inspection - Neurological Exam Neurological Exam: Alert, Awake, CN II-XII Intact, Oriented x3 - Psychiatric Exam Psychiatric exam: Normal Affect, Normal Mood - Skin Skin Exam: Intact, Normal Color Assessment and Plan - Assessment and Plan (Free Text) Assessment: 86 yo female brought in from [facility] for AMS, fevers up to 101.5, and mood disorder found to have severe anemia and a highly suggestive urinalysis for UTI. The patient is more awake now after 2 units of PRBCs were given. The patient has pancultures taken. Started on Aztreonam IV for antibiotic coverage due to the unknown reaction to PCN medications. She has been afebrile in the hospital so far. Fevers may have been secondary to dehydration and severe anemia if not a possible UTI. Await culture results to potentially deescalate antibiotic coverage if possible. Cultures are currently negative for blood and urine. Consider wound cultures. Being seen by Surgery team. Continue to monitor Hgb/Hct. Continue to monitor fever trend. Supportive care. Surgery evaluation of the unstageable sacral decubiti ulcerations given the high ESR and C-reactive protein values. If fevers return, will add Vancomycin IV and Aminoglycoside. So far afebrile for the past 24 hours. Possible bedside debridement by surgery. Monitor ESR and C-Reactive Protein. Thank you for allowing me to participate in the care of the patient, we will follow with you.
[2016-09-13] MEDS: Sodium Chloride 0.9% 1,000 ML IV SCH (00:30)
--- NOTE | 2016-09-13 00:30 | PN ---
SUBJECTIVE: The patient is seen and examined on the bedside, having dinner, awake and alert, even confuse. No nausea or vomiting or diarrhea. No hematuria or hematochezia. Has contractures of the legs. PHYSICAL EXAMINATION: VITAL SIGNS: Temperature 98.1, pulse 92, blood pressure 123/52 and respiratory 18. HEENT: Head is normocephalic and atraumatic. Eyes; PERRLA. Extraocular muscles are intact. Conjunctiva clear. Nose patent. Mucous membrane moist. NECK: Supple. No carotid bruit. No thyromegaly. CHEST: Bilaterally symmetrical. HEART: S1 and S2, positive. LUNGS: Clear to auscultation. ABDOMEN: Soft and nontender. No organomegaly. EXTREMITIES: Contractures. No edema. No cyanosis. NEUROLOGIC: The patient is awake and alert, having dinner, a girl feeding her. MEDICATIONS: Azactam,Cardizem, Colace, Depakote, DuoNeb, Senokot , Tylenol and vitamin D. LABORATORY DATA: White blood cell is 5.4, hemoglobin 9.3 on admission it was 6.4, hematocrit 28.1, and platelets 290. Sodium 142, potassium 4.4, BUN 16, creatinine is 1.3, and glucose 58. ASSESSMENT AND PLAN: Ms. Hernandez Arredondo is an 86-year-old lady with hyperchloremia, renal insufficiency improving, abnormal liver function test, severe anemia status, post blood transfusion came with the sepsis. Infectious disease on the case. Altered mental status is improving. Fever is improving. The patient is more awake as compared to admission. Payne-culture is done started on aztreonam. For antibiotics coverage due to unknown reaction to penicillin medication. Dehydration improving. Unstageable sacral decubitus ulceration is giving high ESR and C-reactive proteins. According to infectious disease, if fever return they will add vancomycin . so far no fevers for 24 hours. The patient need bedside debridement by the surgery, monitor ESR and C-reactive. Review Dr. Bergeron, infectious disease and Dr. Michel, nephrology notes. Appreciate the surgical input. Gastrointestinal DVT prophylaxis. Repeat labs. Continue current treatment. Bushra Prakash MD [facility] # [id number] MTDD
--- NOTE | 2016-09-13 00:50 | PN ---
DATE: 09/12/2016 REFERRING PHYSICIAN: Dr. Prakash. SUBJECTIVE: The patient is lying in bed, head at 45 degrees, awake, alert, confused. No cough. No sputum production. No hemoptysis, no hematemesis, no hematuria. No diarrhea reported. OBJECTIVE: GENERAL: No acute distress. VITAL SIGNS: Temperature 98, heart rate 77, respiratory rate is 20, blood pressure 123/46, pulse ox 97% on 2 liters nasal cannula. HEENT: Moist mucous membrane. No oral thrush noted. NECK: Supple. No JVD. LUNGS: Fair airflow with few rhonchi. HEART: S1 and S2. ABDOMEN: Soft and nontender. No organomegaly. EXTREMITIES: No edema. NEUROLOGIC: Awake, alert, follows simple commands, but confused. MEDICATIONS: She is on Azactam 1 g IV q. 12 hours, Cardizem 60 mg twice a day, Colace 100 mg twice a day, Depakote 250 mg q. 8 hours, DuoNeb q. 6 hours, receiving Chery-Cady 1 tab daily, Santyl to the affected areas, Senokot p.r.n. basis, IV fluid normal saline 50 mL/hr,Tylenol p.r.n. and vitamin D 50,000 units daily. LABORATORY DATA: Show sodium 142, potassium 4.4, chloride 115, bicarbonate 21, BUN 16, creatinine 1.4, glucose 58, calcium is 9.3 and transferrin is 130. AST 27, ALT 38, alk phos is 59 and albumin is 2.2. Microbiology; blood culture and urine culture has no growth. IMPRESSION AND PLAN: Sepsis, acute bronchitis, rule out urinary tract infection, hypertension and gastroesophageal reflux disease. From pulmonary point of view, continue bronchodilator, antibiotics, gastric prophylaxis. Anemia, follow up H and H. Thank you and we will follow with you. Rosie Gutierres MD
[2016-09-13] MEDS: Albuterol-Ipratrop 3 mg / 0.5 (3 ml) UD IH SCH ×3 (02:02→13:12)
[2016-09-13] MEDS: Divalproex 125 mg EC Sprinkle Cap PO SCH ×2 (06:35→14:16)
[2016-09-13 07:39] VITALS: TEMP 97.1; O2SAT 97
--- NOTE | 2016-09-13 09:05 | PN ---
SUBJECTIVE: The patient has no complaints of any chest pain. She is much more awake today. She states she is comfortable. She does go unattended when asked questions. PHYSICAL EXAMINATION VITAL SIGNS: Temperature is 97.5, pulse of 87, blood pressure is 106/74, and respirations 20. GENERAL: The patient is lying in bed, flat, comfortable. HEENT: No oral lesion. Anicteric sclerae. Moist mucosa. NECK: No JVD, adenopathy, or thyromegaly. CARDIOVASCULAR: S1 and S2, regular. No murmurs, rubs, or gallops. LUNGS: Clear to auscultation bilaterally. No wheeze, rales, or rhonchi. ABDOMEN: Bowel sounds are positive, soft, nontender and nondistended. EXTREMITIES: no cyanosis, clubbing or edema. LABORATORY DATA: Creatinine is 1.4. Hemoglobin 9.3. ASSESSMENT: 1. Acute kidney injury, improved. 2. Sacral pressure ulcer, stageable. 3. Hypertension. 4. Dementia, Alzheimer's type. 5. Gastroesophageal reflux disease. 6. DNR/DNI. PLAN: The patient did not have her urine taken. The patient is on aztreonam for antibiotics. She is getting local wound care. She is on Colace for constipation as well as Senokot. I will discontinue her IV fluids at this point. She does have an elevated iron saturation, but she did receive her transfusion, so this may not be accurate. Vitamin B12 and folate are normal. Jass Landry MD
--- NOTE | 2016-09-13 09:40 | CP.PCM.PN ---
Subjective - Date & Time of Evaluation Date of Evaluation: 09/13/16 Time of Evaluation: 07:35 - Subjective Subjective: Patient seen and examined at bedside. As per nursing, no acute events overnight. Patient is resting in bed, altered, and unable to answer questions. Objective - Vital Signs/Intake and Output Vital Signs (last 24 hours): Temp Pulse Resp BP Pulse Ox 97.1 F L 83 20 114/64 97 09/13/16 06:00 09/13/16 06:00 09/13/16 06:00 09/13/16 06:00 09/13/16 06:00 Intake and Output: 09/13/16 09/13/16 06:59 18:59 Intake Total 320 Balance 320 - Medications Medications: Current Medications Acetaminophen (Tylenol 325mg Tab) 325 mg PO Q4 [facility] Last Admin: 09/13/16 06:34 Dose: 325 mg Albuterol/Ipratropium (Duoneb 3 Mg/0.5 Mg (3 Ml) Ud) 3 ml IH [id number] [facility] Last Admin: 09/13/16 08:40 Dose: 3 ml Cholecalciferol (Vitamin D) 5,000 iu PO DAILY [facility] Last Admin: 09/12/16 11:12 Dose: 5,000 iu Collagenase (Santyl) 0 gm TOP DAILY [facility] Diltiazem HCl (Cardizem) 60 mg PO BID [facility] Last Admin: 09/12/16 18:21 Dose: 60 mg Divalproex Sodium (Depakote Sprinkles) 250 mg PO Q8 [facility] PRN Reason: Protocol Last Admin: 09/13/16 06:35 Dose: 250 mg Docusate Sodium (Colace Liquid) 100 mg PO BID [facility] Last Admin: 09/12/16 18:20 Dose: 100 mg Aztreonam (Azactam 1 Gm) 100 mls @ 100 mls/hr IVPB Q12 [facility] PRN Reason: Protocol Last Admin: 09/12/16 23:30 Dose: 100 mls/hr Non-Formulary Medication (Folic Acid/Vit B Complex And C [Chery-Cady Tablet]) 1 tab PO DAILY [facility] Last Admin: 09/11/16 11:10 Dose: Not Given Sennosides (Senokot Tab) 8.6 mg PO BID [facility] Last Admin: 09/12/16 18:22 Dose: 8.6 mg - Labs Labs: 09/11/16 08:28 09/12/16 06:30 PT 10.8 Seconds (9.9-11.8) 09/10/16 19:50 INR 1.00 (0.93-1.08) 09/10/16 19:50 APTT 27.3 Seconds (23.7-30.8) 09/10/16 19:50 - Additional Findings Additional findings: - Constitutional Appears: Non-toxic, No Acute Distress, Unkempt, Chronically Ill - Head Exam Head Exam: NORMAL INSPECTION - ENT Exam ENT Exam: Mucous Membranes Moist - Respiratory Exam Respiratory Exam: NORMAL BREATHING PATTERN. absent: Accessory Muscle Use, Respiratory Distress - Cardiovascular Exam Cardiovascular Exam: +S1 +S2; absent: Bradycardia, Tachycardia - GI/Abdominal Exam GI & Abdominal Exam: Soft. 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 Melvin
[2016-09-13] MEDS: Aztreonam 1 Gm in NS 100mL 100 ML IVPB SCH (10:34)
[2016-09-13 10:47] VITALS: BP 122/59; PULSE 82
[2016-09-13] MEDS: Non Formulary Medication (Folic Acid/Vit B Complex And C [Rena-Vite Tablet] 1 TAB) PO SCH (12:01)
--- NOTE | 2016-09-13 13:40 | PN ---
GASTROINTESTINAL FOLLOWUP NOTE DATE: SUBJECTIVE: Seen and examined at the bedside this morning. The chart was reviewed. The patient denies any nausea. No vomiting or abdominal pain. No reports of any acute overnight event. PHYSICAL EXAMINATION: VITAL SIGNS: Temperature is 97.1, blood pressure 122/59, pulse 82, respirations 20, and 97% nasal cannula. HEENT: Sclerae anicteric. NECK: Supple. CARDIAC: S1 and S2. LUNGS: Sounds with decreased breath sounds at the bases. No rales or wheeze. ABDOMEN: With bowel sounds soft, nondistended, and nontender on palpation. EXTREMITIES: No edema. NEUROLOGIC: The patient is awake and alert. LABORATORY DATA: No recent labs are noted for today except for CMP done yesterday. Sodium 142, potassium 4.4, BUN 69, and creatinine 1.4. Renal functions are slowly improving. LFTs are within normal limits. ASSESSMENT: This is an 86-year-old female with history of Alzheimer's dementia and multiple pressure ulcers with anemia, came in with fever here with status post acute renal failure and gastroesophageal reflux disease. PLAN: Monitor H and H and for GI bleed. She is status post 2 units of packed RBC. The patient is on antibiotics, on stool softeners. She is also on Senokot and multivitamins. She did have iron studies done and iron was within normal limits, although the transferrin was low and TIBC. Her folate was okay. B12 was at 963 slightly elevated. The patient had renal ultrasound that was negative. She is to have repeat labs in a.m. Seen and discussed with Dr. Christopher. JOHANNE Swartz
--- NOTE | 2016-09-13 13:59 | PQF SEPSIS ---
This form is a permanent part of the medical record Dr. Bergeron, Please specify if UTI was ruled out as source of infection in this patient. Clarification of your documentation is requested to better reflect the severity of illness and intensity of treatment of your patient. Indicators present [X] Temp < 96.8 or > 100.4 [] WBC count > 12,000/mm3 or <000/mm3 or 10% immature neutrophils [] Heart Rate > 90 [] Respiratory Rate > 20 [] Fever or hypothermia [] Chills [] Positive blood cultures [] Hypotension [] Metabolic acidosis (Elevated lactate level, anion gap or reduced blood pH) [X] Acute confusion /Altered Mental Status [] Shock [] Other: [] Location in the medical record that reflects the above clinical findings: [] Treatment Provided: [] PHYSICIAN'S RESPONSE Based on your medical judgment of the clinical indicators outlined above, are you treating this patient for a known or suspected: [X] Sepsis / Septicemia Please specify organism if known [] [] SIRS (Systemic Inflammatory Response Syndrome) [] Severe Sepsis (Sepsis with Associated Organ Dysfunction) [] Fever of Unknown Origin [] Other, please indicate: [] [] If Unable to Determine, please check the box, sign and date. Present On Admission (POA) Indicator: [] Present at the time of admission [] Not present at the time of admission [X] Clinically Undetermined In responding to this query, please exercise your independent professional judgment. The fact that a question is asked does not imply that any particular answer is desired or expected. Thank you for your clarification on this documentation. If you have any questions please call:[ ] * Thank you, [ ]Jose Manuel Martell [facility] #[id number] tea room manager SHANNAN
--- NOTE | 2016-09-13 16:38 | CP.PCM.PN ---
Subjective - Date & Time of Evaluation Date of Evaluation: 09/13/16 Time of Evaluation: 12:00 - Subjective Subjective: Infectious Disease Follow Up: September 13, 2016 86 yo female [facility] and fevers up to 101.5 F and findings of chest congestion. The patient has a history of hypertension, mood disorder, and history of fractures of the left spine and pelvis. She received 2U of PRBCs. The patient has stabilized since and is maintained with IV fluids. She is unable to provide much history however. Reviewing the prison records, the patient has a baseline dementia. Objective - Vital Signs/Intake and Output Vital Signs (last 24 hours): Temp Pulse Resp BP Pulse Ox 97.1 F L 82 20 122/59 L 97 09/13/16 06:00 09/13/16 10:43 09/13/16 06:00 09/13/16 10:43 09/13/16 06:00 Intake and Output: 09/13/16 09/13/16 06:59 18:59 Intake Total 320 180 Balance 320 180 - Labs Labs: 09/11/16 08:28 09/12/16 06:30 PT 10.8 Seconds (9.9-11.8) 09/10/16 19:50 INR 1.00 (0.93-1.08) 09/10/16 19:50 APTT 27.3 Seconds (23.7-30.8) 09/10/16 19:50 - Constitutional Appears: Non-toxic, No Acute Distress, Chronically Ill - Head Exam Head Exam: ATRAUMATIC, NORMOCEPHALIC - Eye Exam Eye Exam: EOMI, PERRL Pupil Exam: NORMAL ACCOMODATION, PERRL - ENT Exam ENT Exam: Mucous Membranes Moist, Normal External Ear Exam, TM's Normal Bilaterally - Neck Exam Neck Exam: Full ROM, Normal Inspection - Respiratory Exam Respiratory Exam: Clear to Ausculation Bilateral, NORMAL BREATHING PATTERN. absent: Rales, Rhonchi, Wheezes - Cardiovascular Exam Cardiovascular Exam: REGULAR RHYTHM, RRR, +S1, +S2 - GI/Abdominal Exam GI & Abdominal Exam: Soft, Normal Bowel Sounds. absent: Distended, Tenderness - Extremities Exam Extremities Exam: Full ROM, Normal Inspection - Neurological Exam Neurological Exam: Alert, Awake, CN II-XII Intact Additional comments: AAO x 1 - I believe this is her baseline. - Psychiatric Exam Additional comments: confused, awake at best. - Skin Additional comments: sacral decubiti Assessment and Plan - Assessment and Plan (Free Text) Assessment: 86 yo female brought in from [facility] for AMS, fevers up to 101.5, and mood disorder found to have severe anemia and a highly suggestive urinalysis for UTI. The patient is more awake now after 2 units of PRBCs were given. The patient has pancultures taken. Started on Aztreonam IV for antibiotic coverage due to the unknown reaction to PCN medications. She has been afebrile in the hospital so far. Fevers may have been secondary to dehydration and severe anemia if not a possible UTI. Await culture results to potentially deescalate antibiotic coverage if possible. Cultures are currently negative for blood and urine. Consider wound cultures. Being seen by Surgery team. Continue to monitor Hgb/Hct. Continue to monitor fever trend. Supportive care. Surgery evaluation of the unstageable sacral decubiti ulcerations given the high ESR and C-reactive protein values. If fevers return, will add Vancomycin IV and Aminoglycoside. So far afebrile for the past 24 hours. Possible bedside debridement by surgery. Monitor ESR and C-Reactive Protein. Look for 6 weeks of IV antibiotics with Aztreonam. Thank you for allowing me to participate in the care of the patient, we will follow with you.
--- NOTE | 2016-09-13 19:15 | PN ---
DATE: 09/13/2016 PULMONARY PROGRESS NOTE REFERRING PHYSICIAN: Dr. Prakash. SUBJECTIVE: The patient is lying in bed, getting nebulizer treatment, not very good appetite. Not much cough. No sputum production. No hemoptysis, no hematemesis, no hematuria. No diarrhea reported. OBJECTIVE: GENERAL: No acute distress. VITAL SIGNS: Temperature 98, heart rate 83, respiratory rate is 20, blood pressure 122/59, pulse ox 97% on 3 liters nasal cannula. HEENT: Moist mucous membrane. No oral thrush noted. NECK: Supple. No JVD. LUNGS: Fair airflow with rhonchi. HEART: S1 and S2. ABDOMEN: Soft and nontender. No organomegaly. EXTREMITIES: No edema. NEUROLOGIC: Awake, alert, follows simple commands, but confused. MEDICATIONS: She is on Azactam 1 g IV q. 12 hours, Cardizem 60 mg twice a day, Colace 100 mg twice a day, Depakote 250 mg q. 8 hours, DuoNeb q. 6 hours, multivitamin one tab daily, Santyl to the affected area, Senokot p.r.n. basis, Tylenol p.r.n. basis and vitamin D 5000 IU daily. LABORATORY DATA: Revealed sodium 142, potassium 4.4, chloride 115, bicarbonate 21, BUN 16, creatinine 1.4, glucose 58, calcium is 9.3. AST is 27, ALT 38, alkaline phosphatase is 59 and albumin is 2.2. Microbiology: Blood culture and urine culture reveals no growth. IMPRESSION AND PLAN: Sepsis, acute bronchitis, rule out urinary tract infection, hypertension, gastroesophageal reflux disease, Alzheimer type dementia. From pulmonary point of view, doing okay. Keep head elevated at 45 degrees, aspiration precautions, gastric prophylaxis. Anemia workup. Followup CBC in the morning. The patient is seen by GI to rule out any GI losses of blood. Thank you and we will follow with you. Rosie Gutierres MD
--- NOTE | 2016-09-14 10:58 | CP.PCM.DIS ---
Provider - Provider Date of Admission: 09/10/16 21:11 Attending physician: Bushra Prakash MD Primary care physician: Bushra Prakash MD ditating dc of 09/13/16 Time Spent in preparation of Discharge (in minutes): 60 Diagnosis - Discharge Diagnosis (1) Altered mental status Status: Acute (2) Renal insufficiency Status: Acute (3) Urinary tract infection Status: Acute (4) Anemia Status: Acute Hospital Course - Lab Results Lab Results: Most Recent Lab Values WBC 5.4 10^3/ul (4.5-11.0) D 09/11/16 08:28 RBC 2.87 10^6/uL (3.5-6.1) L 09/11/16 08:28 Hgb 9.3 gm/dL (12.0-16.0) L 09/11/16 08:28 Hct 28.1 % (36.0-48.0) L 09/11/16 08:28 MCV 97.9 fL (80.0-105.0) 09/11/16 08:28 MCH 32.4 pg (25.0-35.0) 09/11/16 08:28 MCHC 33.1 g/dl (31.0-37.0) 09/11/16 08:28 RDW 15.5 % (11.5-14.5) H 09/11/16 08:28 Plt Count 290 10^3/uL (120.0-450.0) 09/11/16 08:28 MPV 8.3 fl (7.0-11.0) 09/11/16 08:28 Gran % 85.2 % (50.0-68.0) H 09/10/16 19:50 Lymph % (Auto) 8.8 % (22.0-35.0) L 09/10/16 19:50 Yates % (Auto) 5.9 % (1.0-6.0) 09/10/16 19:50 Eos % (Auto) 0.0 % (1.5-5.0) L 09/10/16 19:50 Baso % (Auto) 0.1 % (0.0-3.0) 09/10/16 19:50 Gran # 6.51 (1.4-6.5) H 09/10/16 19:50 Lymph # 0.7 (1.2-3.4) L 09/10/16 19:50 Yates # 0.5 (0.1-0.6) 09/10/16 19:50 Eos # 0.0 (0.0-0.7) 09/10/16 19:50 Baso # 0.01 K/mm3 (0.0-2.0) 09/10/16 19:50 ESR 96 mm/hr (0.0-20.0) H 09/10/16 19:50 PT 10.8 Seconds (9.9-11.8) 09/10/16 19:50 INR 1.00 (0.93-1.08) 09/10/16 19:50 APTT 27.3 Seconds (23.7-30.8) 09/10/16 19:50 pO2 40 mm/Hg (30-55) 09/10/16 23:54 VBG pH 7.34 (7.32-7.43) 09/10/16 23:54 VBG pCO2 47.0 (40-60) 09/10/16 23:54 VBG HCO3 25.4 mmol/l (21-28) 09/10/16 23:54 VBG Total CO2 26.8 mmol.L (22-28) 09/10/16 23:54 VBG O2 Sat (Calc) 83.3 % (40-65) H 09/10/16 23:54 VBG Base Excess -0.8 mmol/L (0.0-2.0) L 09/10/16 23:54 VBG Potassium 5.4 mmol/L (3.6-5.2) H 09/10/16 23:54 Sodium 146.0 mmol/L (132-148) 09/10/16 23:54 Chloride 108.0 mmol/L (98-107) H 09/10/16 23:54 Glucose 103 mg/dl (65-105) 09/10/16 23:54 Lactate 0.6 mmol/L (0.7-2.1) L 09/10/16 23:54 FiO2 21.0 % 09/10/16 23:54 Sodium 142 mmol/L (132-148) 09/12/16 06:30 Potassium 4.4 mmol/L (3.6-5.0) 09/12/16 06:30 Chloride 115 mmol/L (98-107) H 09/12/16 06:30 Carbon Dioxide 21 mmol/L (21-33) 09/12/16 06:30 Anion Gap 10 (10-20) 09/12/16 06:30 BUN 69 mg/dL (7-21) H 09/12/16 06:30 Creatinine 1.4 mg/dL (0.5-1.4) 09/12/16 06:30 Est GFR ( Amer) 43 09/12/16 06:30 Est GFR (Non-Af Amer) 35 09/12/16 06:30 Random Glucose 58 mg/dL (70-110) L 09/12/16 06:30 Calcium 9.3 mg/dL (8.4-10.5) 09/12/16 06:30 Phosphorus 3.9 mg/dL (2.5-4.5) 09/10/16 19:50 Magnesium 2.3 mg/dL (1.7-2.2) H 09/10/16 19:50 Iron 71 ug/dL (45-180) 09/11/16 11:30 TIBC 194 ug/dL (265-497) L 09/11/16 11:30 % Saturation 36 % (20-55) 09/11/16 11:30 Transferrin 130.48 mg/dL (206-381) L 09/11/16 11:30 Ferritin 202.0 ng/mL 09/11/16 08:20 Total Bilirubin 0.5 mg/dL (0.2-1.3) 09/12/16 06:30 Direct Bilirubin 0.5 mg/dL (0.0-0.4) H 09/10/16 19:50 AST 27 U/L (15-39) 09/12/16 06:30 ALT 38 U/L (7-56) 09/12/16 06:30 Alkaline Phosphatase 59 U/L (38-133) 09/12/16 06:30 Lactate Dehydrogenase 538 U/L (333-699) 09/11/16 22:09 Total Creatine Kinase 48 U/L (35-230) 09/11/16 22:09 Troponin I 0.01 ng/mL 09/11/16 22:09 C-React Prot High Sens > 15.00 mg/L (1.00-3.00) H 09/10/16 19:50 NT-Pro-B Natriuret Pep 1160 pg/mL (0-450) H 09/10/16 19:50 Total Protein 4.8 g/dL (5.8-8.3) L 09/12/16 06:30 Albumin 2.2 g/dL (3.0-4.8) L 09/12/16 06:30 Globulin 2.7 gm/dL 09/12/16 06:30 Albumin/Globulin Ratio 0.8 (1.1-1.8) L 09/12/16 06:30 Lipase 83 U/L (23-300) 09/10/16 19:50 Vitamin B12 963 pg/mL (239-931) H 09/11/16 08:20 Folate > 20.0 ng/mL 09/11/16 08:20 Procalcitonin 0.22 NG/ML (0.19-0.49) 09/10/16 19:50 Plasma Cortisol PM 20.6 ug/dL (1.7-14.1) H 09/10/16 19:50 Venous Blood Potassium 5.4 mmol/L (3.6-5.2) H 09/10/16 23:54 Urine Color Yellow (YELLOW) 09/10/16 20:52 Urine Appearance Cloudy (CLEAR) 09/10/16 20:52 Urine pH 6.5 (4.7-8.0) 09/10/16 20:52 Ur Specific [place] 1.015 (1.005-1.035) 09/10/16 20:52 Urine Protein Negative mg/dL (<30 mg/dL) 09/10/16 20:52 Urine Glucose (UA) Negative mg/dL (NEGATIVE) 09/10/16 20:52 Urine Ketones Negative mg/dL (NEGATIVE) 09/10/16 20:52 Urine Blood Moderate (NEGATIVE) H 09/10/16 20:52 Urine Nitrate Negative (NEGATIVE) 09/10/16 20:52 Urine Bilirubin Negative (NEGATIVE) 09/10/16 20:52 Urine Urobilinogen 0.2 E.U./dL (<1 E.U./dL) 09/10/16 20:52 Ur Leukocyte Esterase Large Gisselle/uL (NEGATIVE) H 09/10/16 20:52 Urine RBC 5 - 10 /hpf (0-2) 09/10/16 20:52 Urine WBC 5 - 10 /hpf (0-6) 09/10/16 20:52 Ur Epithelial Cells 4 - 5 /hpf (0-5) 09/10/16 20:52 Amorphous Sediment Few 09/10/16 20:52 Urine Bacteria Many (NEG) 09/10/16 20:52 Blood Type O POSITIVE 09/10/16 21:54 Blood Type Confirm O POSITIVE 09/10/16 22:12 Antibody Screen Negative 09/10/16 21:54 Crossmatch See Detail 09/10/16 21:54 BBK History Checked No verified bt 09/10/16 21:54 - Hospital Course Hospital Course: An 86 year old female, whose past medical history includes L spine and pelvis fracture, hypertension and mood disorder, was [facility] [place] [facility] department for fever of 101.5, chest congestion and altered mental status. Limited HPI due to AMS. w/ multiple pressure ulcers need - air mattress - turn Q2 - heel off chain maker loom control - Santyl to ulcers as per surgery AMS, fevers up to 101.5, and mood disorder found to have severe anemia and a highly suggestive urinalysis for UTI. The patient is more awake now after 2 units of PRBCs were given. The patient has pancultures taken. Started on Aztreonam IV for antibiotic coverage due to the unknown reaction to PCN medications. She has been afebrile in the hospital so far. Fevers may have been secondary to dehydration and severe anemia if not a possible UTI. Await culture results to potentially deescalate antibiotic coverage if possible. Cultures are currently negative for blood and urine. Consider wound cultures. Being seen by Surgery team. Continue to monitor Hgb/Hct. Continue to monitor fever trend. Supportive care. Surgery evaluation of the unstageable sacral decubiti ulcerations given the high ESR and C-reactive protein values. If fevers return, will add Vancomycin IV and Aminoglycoside. So far afebrile for the past 24 hours. Possible bedside debridement by surgery. Monitor ESR and C-Reactive Protein. Look for 6 weeks of IV antibiotics with Aztreonam.mid line given and dc pt back to fl wit ab Discharge Exam - Head Exam Head Exam: ATRAUMATIC, NORMOCEPHALIC - Eye Exam Eye Exam: EOMI, Normal appearance, PERRL Pupil Exam: NORMAL ACCOMODATION, PERRL - GI/Abdominal Exam GI & Abdominal Exam: Normal Bowel Sounds - Rectal Exam Rectal Exam: NORMAL INSPECTION - Exam Exam: Circumcision, NORMAL INSPECTION External exam: NORMAL EXTERNAL EXAM Speculum exam: NORMAL SPECULUM EXAM Bimanual exam: NORMAL BIMANUAL EXAM - Extremities Exam Additional comments: legs contracted - Neurological Exam Neurological exam: Alert - Psychiatric Exam Psychiatric exam: Normal Affect, Normal Mood - Skin Skin Exam: Dry, Intact, Normal Color, Warm Discharge Plan - Discharge Medications Prescriptions: Aztreonam 1 Gm in NS 100mL [Azactam 1 gm] 1 gm IVPB Q12H #28 Albuterol/Ipratropium [Duoneb 3 mg/0.5 mg (3 ml) UD] 3 ml IH [id number] #30 Collagenase [Santyl] 30 gm TOP DAILY #14 - Follow Up Plan Condition: FAIR Disposition: TRANSF TO SNF Instructions: Aztreonam (By injection), Collagenase (On the skin), Urinary Tract Infection in Women (GEN), Complete Blenderized Diet (GEN), How to Turn a Person in Bed (GEN), How to Prevent Pressure Ulcers (GEN), Peripherally Inserted Central Catheters and Midline Catheters (DC), Sepsis (GEN), Pressure Ulcer (GEN), Altered Mental Status (GEN), Fall Prevention (GEN) Additional Instructions: discharge instructions; please turn and position patient every 2 hours. Diet pureed dysphagia with thickened liquids.. high risk for aspiration please keep HOB 45 degrees and 90 degrees an hour before, during and after meals.. Wounds; No debridement only santyl ointment, heel cushions and air mattress to be utilized. Referrals: Bushra Prakash MD [Primary Care Provider] -
== END 2016-09-13 15:32 | DRG 871 ==
LOC: ED 18:50 → ERH 21:11 → 2RSO 22:33
PROVIDERS: ADMIT Internal Medicine; ATTEND Internal Medicine
PROC: 3E0F7GC Introduction of Other Therapeutic Substance into Respiratory Tract, Via Natural or Artificial Opening (ICD-10-PCS; principal; 2016-09-12)
DX: A41.9 Sepsis, unspecified organism (principal); L89.213 Pressure ulcer of right hip, stage 3; N17.9 Acute kidney failure, unspecified; L89.150 Pressure ulcer of sacral region, unstageable; N39.0 Urinary tract infection, site not specified; G30.9 Alzheimer's disease, unspecified; E86.0 Dehydration; F02.80 Dementia in other diseases classified elsewhere, unspecified severity, without behavioral disturbance, psychotic disturbance, mood disturbance, and anxiety; D64.9 Anemia, unspecified; I10 Essential (primary) hypertension; Z66 Do not resuscitate; K21.9 Gastro-esophageal reflux disease without esophagitis; F39 Unspecified mood [affective] disorder; L89.521 Pressure ulcer of left ankle, stage 1; L89.511 Pressure ulcer of right ankle, stage 1; J20.9 Acute bronchitis, unspecified; Z87.440 Personal history of urinary (tract) infections; Z87.81 Personal history of (healed) traumatic fracture; Z88.0 Allergy status to penicillin

== ENCOUNTER 2017-03-21 20:50 | Inpatient (IN) | payer MEDICARE ==
[2017-03-21 21:09] VITALS: BMI 16.9
[2017-03-21] MEDS ORDERED: Vancomycin 1gm in NS 250ml 1 GM/250 ML BAG IVPB STA (21:20)
[2017-03-21] MEDS ORDERED: Meropenem 1g/NS 100mL IVPB 1 GM/100 ML PIGGYBACK IVPB STA (21:20)
--- NOTE | 2017-03-21 21:21 | ED PDOC ---
Arrival/HPI - General Chief Complaint: Altered Mental Status Time Seen by Provider: 03/21/17 20:59 Historian: Patient, Prison - History of Present Illness Narrative History of Present Illness (Text): 03/21/17 21:11 A 87 year old female, whose past medical history includes hypertension, seizure disorder, GERD and anemia, brought into the emergency department by EMS from [facility] for shortness of breath and chest congestion. Patient was given Duonebs, with no improvement of her symptoms. Patient also noted to have a low blood pressure of 87/42. Patient unable to provide any further detail , HPI and ROS limited due to patients altered mental status. PMD: Dr. Peres Time/Duration: Prior to Arrival Context: Home (jail) Past Medical History - Provider Review Nursing Documentation Reviewed: Yes - Infectious Disease Hx of Infectious Diseases: None - Tetanus Immunization Tetanus Immunization: Unknown - Reproductive Menopause: Yes - Cardiac Hx Hypertension: Yes - Musculoskeletal/Rheumatological Hx Fractures: Yes (lumbar) - Gastrointestinal Hx Gastroesophageal Reflux: Yes - Genitourinary/Gynecological Hx Urinary Tract Infection: Yes - Psychiatric Hx Substance Use: No Family/Social History - Physician Review Nursing Documentation Reviewed: Yes Family/Social History: No Known Family HX Smoking Status: Never Smoked Hx Alcohol Use: No Hx Substance Use: No Allergies/Home Meds Allergies/Adverse Reactions: Allergies Penicillins Allergy (Verified 09/10/16 18:59) RASH Home Medications: Home Meds Medication Instructions Recorded Confirmed Acetaminophen [Tylenol 325mg tab] 325 mg PO Q4 09/10/16 03/21/17 Diltiazem HCl [Cardizem] 60 mg PO BID 09/10/16 03/21/17 Divalproex [Depakote Sprinkles] 250 mg PO Q8 09/10/16 03/21/17 Docusate [Colace LIQUID] 200 mg PO HS PRN 09/10/16 03/21/17 Sennosides [Senna] 17.2 mg PO DAILY 09/10/16 03/21/17 traZODone [Desyrel] 50 mg PO HS 09/10/16 03/21/17 Amino Acids/Protein Hydrolys 30 ml PO DAILY 03/21/17 03/21/17 [Pro-Stat Profile Liquid Packet] Cholecalciferol (Vitamin D3) 5,000 units PO DAILY 03/21/17 03/21/17 [Vitamin D3] Folic Acid/Vit B Complex and C 1 tab PO DAILY 03/21/17 03/21/17 [Chery-Cady Tablet] Review of Systems - Review of Systems Systems not reviewed;Unavailable: Altered Mental Status Physical Exam Vital Signs Temp Pulse Resp BP Pulse Ox 03/21/17 21:46 100.4 F H 03/21/17 21:15 100 H 20 116/54 L 92 L - Systems Exam Head: Present: Atraumatic, Normocephalic Pupils: Present: PERRL Extroacular Muscles: Present: EOMI Conjunctiva: Present: Normal Mouth: Present: Moist Mucous Membranes Respiratory/Chest: Present: Other (Congestion noted bilaterally, 90-92% on room air). No: Respiratory Distress, Accessory Muscle Use Cardiovascular: Present: Regular Rate and Rhythm, Normal S1, S2. No: Murmurs Abdomen: Present: Normal Bowel Sounds. No: Tenderness, Distention, Peritoneal Signs Upper Extremity: Present: Normal Inspection. No: Cyanosis, Edema Lower Extremity: Present: Normal Inspection. No: Edema Skin: Present: Warm, Dry, Normal Color, Other (Multiple ulcers, see nursing documentation). No: Rashes Medical Decision Making ED Course and Treatment: 03/21/17 21:10 Impression: A 87 year old female sent in for shortness of breath and congestion r/o PNA Plan: -- Chest xray -- EKG -- Labs -- Blood and Urine culture -- Urinalysis -- IV fluids/Lactated ringers, Meropenem and Vancomycin -- Reassess and disposition Progress Notes: 03/21/17 21:41 Chest xray read and interpreted by me, which shows left upper and lower lobe pneumonia. 03/21/17 22:30 Reviewed EKG, NSR at 99 bpm. RBBB. LVH. No acute change from EKG on 09/10/2016. 03/21/17 22:3 Patient is DNR/DNI. Patient treated for long term acquired PNA. Vanco, Cefepime, and Levaquin IV ordered. Case discussed with Dr. Prakash, who is aware and agrees with plan. Accepts pt in to her service. Agrees to medical floor for pneumonia. - Critical Care Critical Care Minutes: 30 minutes - Lab Interpretations Lab Results: 03/21/17 21:20 03/21/17 21:20 Lab Results 03/21/17 21:54: Lactate Dehydrogenase 332 L, Total Creatine Kinase < 20 L, Troponin I 0.03 D 03/21/17 21:40: Influenza Typ A,B (EIA) Negative for flu a/b 03/21/17 21:20: Sodium 151 H, Chloride 112 H, Potassium 4.9, Carbon Dioxide 29, Anion Gap 15, BUN 63 H, Creatinine 1.8 H, Est GFR ( Amer) 32, Est GFR ( Non-Af Amer) 26, Random Glucose 118 H, Calcium 11.6 H, Phosphorus 3.7, Magnesium 2.4 H, Total Bilirubin 0.2, AST 24, ALT 25, Alkaline Phosphatase 78, NT-Pro-B Natriuret Pep 2480 H, Total Protein 5.7 L, Albumin 2.7 L, Globulin 3.0 , Albumin/Globulin Ratio 0.9 L 03/21/17 21:20: pO2 36, VBG pH 7.42, VBG pCO2 52.0, VBG HCO3 33.7 H, VBG Total CO2 35.3 H, VBG O2 Sat (Calc) 82.0 H, VBG Base Excess 7.6 H, VBG Potassium 5.1, Sodium 148.0, Chloride 120.0 H, Glucose 131 H, Lactate 1.2, FiO2 21.0, Venous Blood Potassium 5.1 03/21/17 21:20: PT 11.7, INR 1.03, APTT 28.8 03/21/17 21:20: WBC 17.2 H D, RBC 2.36 L, Hgb 8.2 L, Hct 26.0 L, MCV 110.2 H, MCH 34.7, MCHC 31.5, RDW 14.1, Plt Count 309, MPV 9.2, Gran % 94.2 H, Lymph % ( Auto) 2.7 L, Maries % (Auto) 3.0, Eos % (Auto) 0.0 L, Baso % (Auto) 0.1, Gran # 16.21 H, Lymph # (Auto) 0.5 L, Maries # (Auto) 0.5, Eos # (Auto) 0.0, Baso # (Auto ) 0.01, Neutrophils % (Manual) 90 H, Band Neutrophils % 5 H, Lymphocytes % ( Manual) 4 L, Monocytes % (Manual) 1, Toxic Granulation 1+, Platelet Evaluation Normal, Large Platelets Present, Polychromasia Slight, Hypochromasia 2+, Anisocytosis (manual) 1+, Ovalocytes Slight I have reviewed the lab results: Yes - RAD Interpretation Radiology Orders: 03/21/17 21:18 CHEST PORTABLE [RAD] Stat Terrazzo Installer: ED Physician - EKG Interpretation Interpreted by ED Physician: Yes Type: 12 lead EKG - Medication Orders Current Medication Orders: Levofloxacin/Dextrose (Levaquin 750mg) 750 mg in 150 mls @ 100 mls/hr IVPB STAT STA PRN Reason: Protocol Stop: 03/21/17 23:10 Discontinued Medications Acetaminophen (Tylenol 650 Mg Supp) 650 mg RC STAT STA Stop: 03/21/17 21:55 Lactated Ringer's 1,350 ml/ IV (SUPPLIES) 1,350 mls @ 2,694.36 mls/hr IV ONCE ONE PRN Reason: 60 ML/KG/HR Stop: 03/21/17 21:18 Last Admin: 03/21/17 21:30 Dose: 2,694.36 mls/hr eMAR Start Stop Document 03/21/17 21:30 AD (Rec: 03/21/17 21:56 AD [id number]) Intravenous Solution Start Date 03/21/17 Start Time 21:30 Meropenem/Sodium Chloride (Meropenem 1g/Ns 100ml Ivpb) 1 gm in 100 mls @ 100 mls/hr IVPB STAT STA PRN Reason: Protocol Stop: 03/21/17 22:19 Last Admin: 03/21/17 21:56 Dose: 100 mls/hr eMAR Start Stop Document 03/21/17 21:56 AD (Rec: 03/21/17 21:57 AD [id number]) Intravenous Solution Start Date 03/21/17 Start Time 21:57 Vancomycin HCl (Vancomycin 1gm) 1 gm in 250 mls @ 167 mls/hr IVPB STAT STA PRN Reason: Protocol Stop: 03/21/17 22:49 - Scribe Statement The provider has reviewed the documentation as recorded by the Mari Fish Provider Scribe Attestation: All medical record entries made by the Scribe were at my direction and personally dictated by me. I have reviewed the chart and agree that the record accurately reflects my personal performance of the history, physical exam, medical decision making, and the department course for this patient. I have also personally directed, reviewed, and agree with the discharge instructions and disposition. Disposition/Present on Arrival - Present on Arrival Any Indicators Present on Arrival: No History of DVT/PE: No History of Uncontrolled Diabetes: No Urinary Catheter: No History of Decub. Ulcer: No History Surgical Site Infection Following: None - Disposition Have Diagnosis and Disposition been Completed?: Yes Diagnosis: Pneumonia Disposition: HOSPITALIZED Disposition Time: 10:30 Patient Plan: Admission Condition: GUARDED
[2017-03-21 21:40] LABS: VENOUS BLOOD GAS BASE EXCESS 7.6 mmol/L (0.0-2.0); VENOUS BLOOD GAS PO2 36 mm/Hg (30-55); VENOUS BLOOD PH 7.42 (7.32-7.43)
[2017-03-21] MEDS ORDERED: levoFLOXacin 750 mg in D5W 750 MG/150 ML BAG IVPB STA (21:41)
[2017-03-21 21:44] LABS: BASO # 0.01 K/mm3 (0.0-2.0); BASO % 0.1 % (0.0-3.0); GRAN # 16.21 (1.4-6.5); GRAN % 94.2 % (50.0-68.0); HEMOGLOBIN 8.2 g/dL (12.0-16.0); LYMPH # 0.5 (1.2-3.4); LYMPH % 2.7 % (22.0-35.0); MEAN CELL VOLUME 110.2 fl (80.0-105.0); MEAN CORPUSCULAR HEMOGLOBIN 34.7 pg (25.0-35.0); MEAN CORPUSCULAR HGB CONC 31.5 g/dl (31.0-37.0); MEAN PLATELET VOLUME 9.2 fl (7.0-11.0); MONO # 0.5 (0.1-0.6); PLATELET COUNT 309 10^3/uL (120.0-450.0); RBC 2.36 10^6/uL (3.5-6.1); RED CELL DISTRIBUTION WIDTH 14.1 % (11.5-14.5); WHITE BLOOD COUNT 17.2 10^3/ul (4.5-11.0)
[2017-03-21 21:49] LABS: ALB/GLOB RATIO 0.9 (1.1-1.8); ALBUMIN 2.7 g/dL (3.0-4.8); CALCIUM 11.6 mg/dL (8.4-10.5); MAGNESIUM 2.4 mg/dL (1.7-2.2)
[2017-03-21 21:53] LABS: INR 1.03 (0.93-1.08); PARTIAL THROMBOPLASTIN TIME 28.8 Seconds (25.1-36.5); PROTHROMBIN TIME 11.7 SECONDS (9.4-12.5)
[2017-03-21 22:24] LABS: TROPONIN I 0.03 ng/mL
[2017-03-21 22:28] LABS: ANISOCYTOSIS 1+; BAND 5 % (0-2); HYPOCHROMIA 2+; LARGE PLATELETS PRESENT; LYMPHOCYTE 4 % (22.0-35.0); MONOCYTE 1 % (1.0-6.0); NEUTROPHIL 90 % (50.0-70.0); OVALOCYTES SLIGHT; PLATELET ESTIMATE NORMAL (NORMAL); POLYCHROMASIA SLIGHT; TOXIC GRANULATION 1+
[2017-03-21 23:29] LABS: URINE BILIRUBIN NEGATIVE (NEGATIVE); URINE BLOOD TRACE-INTACT (NEGATIVE); URINE GLUCOSE (UA) NEGATIVE (NEGATIVE); URINE LEUKOCYTE ESTERASE MODERATE Leu/uL (NEGATIVE); URINE NITRATE POSITIVE (NEGATIVE); URINE PROTEIN 30 mg/dL (<30 mg/dL); URINE UROBILINOGEN 0.2 E.U./dL (<1 E.U./dL)
[2017-03-21] MEDS: Albuterol-Ipratrop 3 mg / 0.5 (3 ml) UD IH SCH ×2 (23:30→23:45)
[2017-03-21 23:37] LABS: URINE APPEARANCE SL CLOUDY (CLEAR); URINE COLOR YELLOW (YELLOW)
[2017-03-21 23:50] LABS: URINE BACTERIA MANY (NEG); URINE EPITHELIAL CELLS 0 - 2 /hpf (0-5); URINE WBC 20 - 25 /hpf (0-6)
[2017-03-22] MEDS: PROTEIN HYDROLYS PO SCH (09:35)
[2017-03-22] MEDS: AMINO ACIDS PO SCH (09:35)
[2017-03-22] MEDS: Non Formulary Medication (Folic Acid/Vit B Complex And C [Rena-Vite Tablet] 1 TAB) PO SCH (09:35)
[2017-03-22] MEDS: Sodium Chloride 0.9% 1,000 ML IV SCH ×2 (09:35→21:35)
[2017-03-22] MEDS: [UNRECOGNIZED DRUG - OTHER] PO SCH (09:35)
[2017-03-22] MEDS: Cholecalciferol 1,000 INTLU TAB PO SCH (09:36)
[2017-03-22] MEDS: Meropenem 500 MG in Sodium Chloride 0.9% 100 ML IVPB SCH ×2 (09:37→21:42)
--- NOTE | 2017-03-22 10:09 | RAD ---
HISTORY: Sepsis Patient COMPARISON: Portable chest 09/10/2016. FINDINGS: LUNGS: Patchy densities identified in the left perihilar and upper lung zones in a pattern suspicious for interval pneumonia. Underlying pulmonary venous congestion is also in question given increased linear pattern at the right perihilar and basilar regions medially. Patient's left hand obscures the left base completely. Cardiomediastinal silhouette is otherwise stable. Prominent left apical calcified granuloma again evident PLEURA: No significant pleural effusion identified, no pneumothorax apparent. CARDIOVASCULAR: Stable cardiomediastinal silhouette as imaged. OSSEOUS STRUCTURES: No significant abnormalities. VISUALIZED UPPER ABDOMEN: Normal. OTHER FINDINGS: None. IMPRESSION: Interval left upper lobe and perihilar infiltrate suspected with no definite right-sided infiltrate noted. Underlying limited CHF is difficult to completely exclude. Further clinical correlation is advised. Left hand obscures left base completely.
--- NOTE | 2017-03-22 10:29 | CARD ---
APPROVED REPORT EKG Measurement Heart [id number] <Conclusion> Normal sinus rhythm RBBB LVH No change except increased voltage
[2017-03-22] MEDS: Divalproex 125 mg EC Sprinkle Cap PO SCH ×2 (13:16→21:40)
--- NOTE | 2017-03-22 14:50 | CP.PCM.CON ---
History of Present Illness - History of Present Illness History of Present Illness: Surgery: Dr. Hill CC: Sacral decub HPI: 87F, poor historian, Hx gathered from review of chart. Pt has hx of hypertension, seizure disorder, GERD, anemia and dementia. She presents from [place] for SOB. Surgery has been consulted for Sacral decub x 2. Review of Systems - Review of Systems Systems not reviewed;Unavailable: Dementia Past Patient History - Infectious Disease Hx of Infectious Diseases: None - Tetanus Immunizations Tetanus Immunization: Unknown - Past Social History Smoking Status: unknown - CARDIAC Hx Hypertension: Yes - INTEGUMENTARY Other/Comment: sacral decubitus x2 - MUSCULOSKELETAL/RHEUMATOLOGICAL Hx Falls: No - GASTROINTESTINAL Hx Gastroesophageal Reflux: Yes - GENITOURINARY/GYNECOLOGICAL Hx Urinary Tract Infection: Yes - PSYCHIATRIC Hx Substance Use: No Meds Allergies/Adverse Reactions: Allergies Allergy/AdvReac Type Severity Reaction Status Date / Time Penicillins Allergy RASH Verified 09/10/16 18:59 - Medications Medications: Current Medications Acetaminophen (Tylenol 325mg Tab) 325 mg PO Q4 [facility] Last Admin: 03/22/17 13:16 Dose: 325 mg Albuterol/Ipratropium (Duoneb 3 Mg/0.5 Mg (3 Ml) Ud) 3 ml IH [id number] [facility] Cholecalciferol (Vitamin D) 5,000 intlu PO DAILY [facility] Last Admin: 03/22/17 09:36 Dose: 5,000 intlu Diltiazem HCl (Cardizem) 60 mg PO BID [facility] Last Admin: 03/22/17 09:36 Dose: 60 mg Divalproex Sodium (Depakote Sprinkles) 250 mg PO Q8 [facility]OX[facility] PRN Reason: Protocol Last Admin: 03/22/17 13:16 Dose: 250 mg Docusate Sodium (Colace Liquid) 200 mg PO HS PRN PRN Reason: Constipation Famotidine (Pepcid) 40 mg PO HS [facility] Meropenem 500 mg/ Sodium (Chloride) 100 mls @ 100 mls/hr IVPB Q12 [facility] PRN Reason: Protocol Last Admin: 03/22/17 09:37 Dose: 100 mls/hr Sodium Chloride (Sodium Chloride 0.9%) 1,000 mls @ 100 mls/hr IV .Q10H [facility] Last Admin: 03/22/17 09:35 Dose: 100 mls/hr Non-Formulary Medication (Amino Acids/Protein Hydrolys [Pro-Stat Profile Liquid Packet]) 30 ml PO DAILY [facility] Last Admin: 03/22/17 09:35 Dose: Not Given Non-Formulary Medication (Folic Acid/Vit B Complex And C [Chery-Cady Tablet]) 1 tab PO DAILY [facility] Last Admin: 03/22/17 09:35 Dose: Not Given Sennosides (Senokot Tab) 17.2 mg PO DAILY [facility] Last Admin: 03/22/17 09:36 Dose: 17.2 mg Trazodone HCl (Desyrel) 50 mg PO [facility] Physical Exam - Constitutional Appears: Cachectic, Chronically Ill - Head Exam Head Exam: ATRAUMATIC - Eye Exam Eye Exam: EOMI - ENT Exam ENT Exam: Mucous Membranes Dry - Neck Exam Neck exam: Positive for: Full Rom - Respiratory Exam Respiratory Exam: NORMAL BREATHING PATTERN. absent: Accessory Muscle Use, Respiratory Distress - Cardiovascular Exam Cardiovascular Exam: REGULAR RHYTHM - GI/Abdominal Exam GI & Abdominal Exam: Soft. absent: Tenderness - Extremities Exam Extremities exam: Negative for: calf tenderness, pedal edema - Neurological Exam Neurological exam: Alert - Skin Additional comments: R buttock decubiti: ~[id number] stage IV, clean, no odor, pink, no necrotic tissue ~[id number] deubiti w. undermining, no necrotic tissue noted, no odor Results - Vital Signs Recent Vital Signs: Last Vital Signs Temp 99.5 F 03/22/17 06:00 Pulse 90 03/22/17 06:00 Resp 21 03/22/17 06:00 BP 143/64 03/22/17 06:00 Pulse Ox 98 03/22/17 06:00 - Labs Result Diagrams: 03/21/17 21:20 03/21/17 21:20 Labs: Laboratory Results - last 24 hr 03/21/17 22:57 Urine Color Yellow Urine Appearance Sl cloudy Urine pH 6.0 Ur Specific [place] 1.020 Urine Protein 30 H Urine Glucose (UA) Negative Urine Ketones Negative Urine Blood Trace-intact H Urine Nitrate Positive H Urine Bilirubin Negative Urine Urobilinogen 0.2 Ur Leukocyte Esterase Moderate H Urine RBC 1 - 3 Urine WBC 20 - 25 Ur Epithelial Cells 0 - 2 Urine Bacteria Many Assessment & Plan - Assessment and Plan (Free Text) Assessment: 87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 Stage IV sacral decub x 2 -local wound care -Algenate packing / dressing changes daily for large decub -Iodoform packing daily for smaller decub -will d/w attending Trang PGY3
[2017-03-22] MEDS: Albuterol-Ipratrop 3 mg / 0.5 (3 ml) UD IH SCH ×3 (16:06→21:30)
[2017-03-23] MEDS: Albuterol-Ipratrop 3 mg / 0.5 (3 ml) UD IH SCH ×4 (02:10→20:00)
--- NOTE | 2017-03-23 05:24 | CON ---
DATE: LOCATION: The patient is seen earlier this morning in room 361, bed 1. CHIEF COMPLAINT: Change in mental status times one day. HISTORY OF PRESENT ILLNESS: This is an 87-year-old female, who is a prison patient with hypertension, seizures, GERD, history of kidney disease, anemia, history of lumbar fracture, history of urinary tract infection, sacral ulcers, Alzheimer's dementia, who was admitted with the diagnosis of pneumonia. Infectious Disease consultation requested. The patient is a poor historian and information was gathered from the chart and nurse who cared for the patient. The patient did have fevers and mild shortness of breath. No abdominal pain, no diarrhea. PAST MEDICAL HISTORY: Significant for hypertension, seizures, GERD, history of kidney disease, anemia. PAST SURGICAL HISTORY: Significant . ALLERGIES: THE PATIENT IS ALLERGIC TO PENICILLIN. PHYSICAL EXAMINATION: VITAL SIGNS: Temperature is 100.4, blood pressure is 111/59, respiratory rate of 21, heart rate of 97. HEENT: Unremarkable. NECK: Supple. LUNGS: Decreased breath sounds. HEART: Normal S1 and S2. ABDOMEN: Soft, nontender. LABORATORY DATA: Reveals a white count of 17,000, hemoglobin of 8, platelets of 309. BUN of 63, creatinine is 1.8, procalcitonin is 0.88. Urinalysis is noted. Serology is noted. Chest x-ray reveals patchy density. ASSESSMENT AND PLAN: This is an 87-year-old prison female with hypertension, seizures, kidney disease, gastroesophageal reflux disease, anemia, history of lumbar fracture, urinary tract infection, sacral ulcers, Alzheimer's dementia, admitted with fever, tachycardia, leukocytosis, hypoxia, who is ALLERGIC TO PENICILLIN. Severe sepsis secondary to bacteria, possible Gram-positive cocci, possible Gram-negative ale, healthcare-associated pneumonia with an elevated procalcitonin, with urine as a possible source, with acute systolic congestive heart failure on top of chronic congestive heart failure and acute kidney injury, with creatinine is changed from 1.4 to 1.8 on top of chronic renal failure. We will treat the patient with meropenem, doxycycline, and pending kang-cultures, blood, urine and sputum cultures, and we will make further recommendations upon availability of initial results. The patient was given a dose of vancomycin. Bulmaro Clement MD [facility] # [id number]
[2017-03-23] MEDS: Divalproex 125 mg EC Sprinkle Cap PO SCH ×3 (05:40→22:11)
[2017-03-23 07:09] LABS: HEMOGLOBIN 7.2 g/dL (12.0-16.0); MEAN CELL VOLUME 109.1 fl (80.0-105.0); MEAN CORPUSCULAR HEMOGLOBIN 34.6 pg (25.0-35.0); MEAN CORPUSCULAR HGB CONC 31.7 g/dl (31.0-37.0); MEAN PLATELET VOLUME 8.9 fl (7.0-11.0); RBC 2.08 10^6/uL (3.5-6.1); WHITE BLOOD COUNT 9.2 10^3/ul (4.5-11.0)
[2017-03-23] MEDS: Sodium Chloride 0.9% 1,000 ML IV SCH (07:10)
[2017-03-23 07:30] LABS: IRON 20 ug/dL (45-180)
[2017-03-23 07:40] LABS: % IRON SATURATION 14 % (20-55); TOTAL IRON BINDING CAPACITY 151 ug/dL (265-497)
[2017-03-23 07:41] LABS: BLOOD UREA NITROGEN 52 mg/dL (7-21); CALCIUM 11.3 mg/dL (8.4-10.5); GFR AFRICAN-AMERICAN 32; GFR NON-AFRICAN AMERICAN 26
--- NOTE | 2017-03-23 08:42 | CON ---
DATE: 03/22/2017 PULMONARY CONSULTATION REFERRING PHYSICIAN: Dr. Prakash REASON FOR CONSULTATION: Pneumonia, cough, shortness of breath, septic shock. HISTORY OF PRESENT ILLNESS: This is an 87-year-old female from [facility], brought in with septic shock. Blood pressure was in 80's, cough, shortness of breath, resuscitated with fluid in emergency room with good response, bronchodilator given, antibiotics started, presently she is sitting up, still have some cough. No hemoptysis, no hematemesis, no hematuria, no diarrhea reported. PAST MEDICAL HISTORY: Hypertension, lumbar fracture in the past, GERD, recurrent UTI, Alzheimer type dementia, Vitamin D deficiency. FAMILY HISTORY: No significant cardiopulmonary disease reported. SOCIAL HISTORY: No history of smoking or alcohol use reported. ALLERGIES: NONE KNOWN. MEDICATIONS: She is on Pro-Stat 30 mL daily, Cardizem 60 mg twice a day, Colace 200 mg at bedtime, Depakote sprinkles 250 mg q.8 hours, trazodone 50 mg at bedtime, DuoNeb q.6 hours, receiving folic acid, vitamin D one cap daily, meropenem 500 mg q.12 hours, Pepcid 40 mg daily, Senokot p.r.n., IV fluid normal saline 100 mL per hour, Tylenol p.r.n., vitamin D 50,000 units weekly. REVIEW OF SYSTEMS: There is no headache, no rhinitis. Had some cough, sputum production. No hemoptysis, no hematemesis, no hematuria, no diarrhea or leg swelling reported. PHYSICAL EXAMINATION: GENERAL: Lying in the bed, awake, alert, nonverbal, does not follow command. VITAL SIGNS: Temperature is 98, heart rate is 94, respiratory rate is 20, blood pressure last one was 143/64, pulse ox 98% on nonrebreather mask. HEENT: Moist mucous membrane, crowded airway. NECK: Supple. No JVD. LUNGS: There is a scattered rhonchi. HEART: S1 and S2. ABDOMEN: Soft, nontender. No organomegaly. EXTREMITIES: There is no edema, has some contracture. NEUROLOGICAL: Awake, alert, nonverbal, does not follow command. LABORATORY DATA: Shows hemoglobin 8.2, hematocrit 26.0, WBC 17.2, platelet is 309, INR 1.03. PTT is 29. VBG showed pH 7.42, pCO2 of 52, O2 is 36. Sodium 151, potassium 4.9, chloride 112, bicarbonate 29, BUN 63, creatinine 1.8. Glucose 122, calcium is 11.6, phosphorous 3.7, magnesium 2.4, AST 24, ALT 25, alk phos is 78, LDH is 332. Troponin is 0.03, proBNP 2480, albumin 2.7, procalcitonin 0.88. Urinalysis shows wbc 20-25. Influenza A and B is negative. Chest x-ray done in the ER shows left upper lobe and perihilar infiltrate, probably pneumonia. IMPRESSION AND PLAN: Healthcare-associated pneumonia with septic shock, may have a cardiomyopathy, hypertension, seizure disorder, gastroesophageal reflux disease, anemia, dementia, sacral decubiti. Agree with the present management. Continue meropenem covering healthcare-associated pneumonia, supplement oxygen, bronchodilators. We will send anemia workup including B12, folate, iron studies, send stool guaiac. Patient will be seen by surgical team for decubiti ulcer. Gastric and deep venous thrombosis prophylaxis. Follow up labs in the morning. Swallow evaluation. Thank you and we will follow with you. Rosie Gutierres MD
--- NOTE | 2017-03-23 08:50 | CP.PCM.PN ---
Subjective - Date & Time of Evaluation Date of Evaluation: 03/23/17 Time of Evaluation: 08:49 - Subjective Subjective: Surgery: Dr. Hill Pt seen and examined. Resting comfortably in bed. No acute events overnight. Objective - Vital Signs/Intake and Output Vital Signs (last 24 hours): Temp Pulse Resp BP Pulse Ox 100.5 F H 94 H 20 111/59 L 96 03/23/17 05:40 03/22/17 16:12 03/22/17 16:00 03/22/17 16:00 03/22/17 16:00 Intake and Output: 03/23/17 03/23/17 06:59 18:59 Intake Total 180 0 Output Total 100 300 Balance 80 -300 - Medications Medications: Current Medications Acetaminophen (Tylenol 325mg Tab) 325 mg PO Q4 [facility] Last Admin: 03/23/17 05:40 Dose: 325 mg Albuterol/Ipratropium (Duoneb 3 Mg/0.5 Mg (3 Ml) Ud) 3 ml IH [id number] [facility] Last Admin: 03/23/17 07:52 Dose: 3 ml Cholecalciferol (Vitamin D) 5,000 intlu PO DAILY [facility] Last Admin: 03/22/17 09:36 Dose: 5,000 intlu Diltiazem HCl (Cardizem) 60 mg PO BID [facility] Last Admin: 03/22/17 17:10 Dose: 60 mg Divalproex Sodium (Depakote Sprinkles) 250 mg PO Q8 [facility] PRN Reason: Protocol Last Admin: 03/23/17 05:40 Dose: 250 mg Docusate Sodium (Colace Liquid) 200 mg PO HS PRN PRN Reason: Constipation Famotidine (Pepcid) 40 mg PO HS [facility] Last Admin: 03/22/17 21:42 Dose: 40 mg Meropenem 500 mg/ Sodium (Chloride) 100 mls @ 100 mls/hr IVPB Q12 [facility] PRN Reason: Protocol Last Admin: 03/22/17 21:42 Dose: 100 mls/hr Sodium Chloride (Sodium Chloride 0.9%) 1,000 mls @ 100 mls/hr IV .Q10H [facility] Last Admin: 03/23/17 07:10 Dose: 100 mls/hr Non-Formulary Medication (Amino Acids/Protein Hydrolys [Pro-Stat Profile Liquid Packet]) 30 ml PO DAILY [facility] Last Admin: 03/22/17 09:35 Dose: Not Given Non-Formulary Medication (Folic Acid/Vit B Complex And C [Chery-Cady Tablet]) 1 tab PO DAILY [facility] Last Admin: 03/22/17 09:35 Dose: Not Given Sennosides (Senokot Tab) 17.2 mg PO DAILY [facility] Last Admin: 03/22/17 09:36 Dose: 17.2 mg Trazodone HCl (Desyrel) 50 mg PO HS [facility] Last Admin: 03/22/17 21:41 Dose: 50 mg - Labs Labs: 03/23/17 06:50 03/23/17 06:50 PT 11.7 SECONDS (9.4-12.5) 03/21/17 21:20 INR 1.03 (0.93-1.08) 03/21/17 21:20 APTT 28.8 Seconds (25.1-36.5) 03/21/17 21:20 - Constitutional Appears: Non-toxic, No Acute Distress - Head Exam Head Exam: ATRAUMATIC, NORMOCEPHALIC - Eye Exam Eye Exam: EOMI - ENT Exam ENT Exam: Mucous Membranes Moist - Neck Exam Neck Exam: Full ROM - Respiratory Exam Respiratory Exam: NORMAL BREATHING PATTERN. absent: Accessory Muscle Use, Respiratory Distress - Cardiovascular Exam Cardiovascular Exam: RRR - GI/Abdominal Exam GI & Abdominal Exam: Soft. absent: Tenderness - Extremities Exam Extremities Exam: absent: Calf Tenderness, Pedal Edema - Neurological Exam Neurological Exam: Alert, Awake. absent: Oriented x3 - Skin Additional comments: R buttock decubiti: ~[id number] stage IV, clean, no odor, pink, no necrotic tissue ~[id number] Stage IV deubiti w. undermining, no necrotic tissue noted, no odor Assessment and Plan - Assessment and Plan (Free Text) Assessment: 87F w. Stage IV R buttock decubiti x 2 -c/w local wound care -Large ulcer, BID dressing changes w. algenate packing -Smaller ulcer BID dressing changes w. iodoform packing -Air mattress -Reposition Q2H -d/w attending Trang PGY3
[2017-03-23] MEDS: AMINO ACIDS PO SCH (09:01)
[2017-03-23] MEDS: PROTEIN HYDROLYS PO SCH (09:01)
[2017-03-23] MEDS: [UNRECOGNIZED DRUG - OTHER] PO SCH (09:01)
[2017-03-23] MEDS: Non Formulary Medication (Folic Acid/Vit B Complex And C [Rena-Vite Tablet] 1 TAB) PO SCH (09:33)
[2017-03-23] MEDS: Meropenem 500 MG in Sodium Chloride 0.9% 100 ML IVPB SCH ×2 (09:33→22:13)
[2017-03-23] MEDS: Cholecalciferol 1,000 INTLU TAB PO SCH (09:34)
[2017-03-23 12:38] LABS: FOLATE > 20.0 ng/mL
--- NOTE | 2017-03-23 13:37 | HP ---
DATE OF EXAM: 03/22/2017 The patient is an 87-year-old female. Patient was seen and examined at the bedside on 03/22/2017. I am doing history of physical for 03/22/2017. CHIEF COMPLAINT: Altered mental status. HISTORY OF PRESENT ILLNESS: Ms. Maria Elena Ng is an 87-year-old female, resident of [facility], history of hypertension, seizure, GERD, anemia, came to the emergency room via EMS for shortness of breath, chest congestion. Patient was given DuoNeb with no improvement. As noted, patient also noted to have low blood sugar, blood pressure 87/72. Patient has advanced dementia, trying to get the history from her, but I know the patient from [facility]. PAST MEDICAL HISTORY: Menopause, hypertension, fracture, gastroesophageal reflux disease, urinary tract infection with sacral decubitus ulcer. FAMILY HISTORY: Father and mother, noncontributory. HABITS: Never smoked. No drugs. No ethanol. ALLERGIES: PATIENT IS ALLERGIC WITH PENICILLIN. HOME MEDICATIONS: Reviewed by me. Tylenol, Cardizem, Depakote, Colace, Senna, trazodone, Calciferol. REVIEW OF SYSTEMS: Patient is seen and examined on the bedside, looking comfortable. Patient has advanced dementia and is not able to give review of system, but looks like no fever, no chills. No hematuria or hematochezia. No swelling of the leg. No dyspnea. PHYSICAL EXAMINATION: VITAL SIGNS: Temperature 100.4, pulse 100, respirations 20, blood pressure 116/56, pulse oximetry 92%. HEENT: Head: Normocephalic, atraumatic. Eyes: PERRLA. Extraocular muscles intact. Conjunctivae clear. Nose patent. Mucous membranes are moist. NECK: Supple. No carotid bruit, JVD, or thyromegaly. LUNGS: Congestion noted bilaterally, 92% on room air, not look like in respiratory distress. CARDIOVASCULAR: S1 and S2 positive. ABDOMEN: Soft. Bowel sounds present. No organomegaly. EXTREMITIES: No edema. No cyanosis. NEUROLOGIC: Awake and alert, but confused. LABORATORY DATA: White blood cells 7.2, hemoglobin 8.2, hematocrit 26.3, platelets 309. Sodium 151, potassium 4.9. BUN 53, creatinine 1.9. Glucose 118. ASSESSMENT AND PLAN: Ms. Maria Elena Ng is an 87-year-old lady with multiple medical problems, hypertension, seizure disorder, gastroesophageal reflux disease, anemia, advanced dementia. Patient has sacral decubitus. Surgical consult called for that. Surgical input appreciated. Patient has history of leukocytosis, anemia, hypernatremia, renal insufficiency, hyperglycemia. 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 Local wound care packing and dressings are changed daily. Iodoform packing daily for similar smaller decubitus. Patient has anemia. Dr. Clement on the case. Gastrointestinal and deep venous thrombosis prophylaxis. Repeat labs. We will follow. Bushra Prakash MD MTDD
--- NOTE | 2017-03-23 16:42 | CP.PCM.PCO ---
Physician Communication Note - Physician Communication Note Physician Communication Note: HgB7.2/Iron20/Rx Silvercel-Ulcer/Not septic source
--- NOTE | 2017-03-23 21:26 | PN ---
DATE: 03/23/2017 SUBJECTIVE: Patient is in bed and was seen early this morning in room 361, bed 1. PHYSICAL EXAMINATION: VITAL SIGNS: Patient's temperature is 97, blood pressure is 137/60, T-max is 100.5, respiratory rate of 20, heart rate of 95. HEENT: Unremarkable. NECK: Supple. LUNGS: Have decreased breath sounds. HEART: Normal S1, S2. ABDOMEN: Soft, nontender. LABORATORY EXAMINATION: Reveals the patient's white count is 9.2, hemoglobin of 7, platelets are noted. BUN of 52, creatinine of 1.8, and procalcitonin 0.88. Urinalysis is noted, 20 to 25, many bacteria. Influenza is negative and urine cultures are gram-negative ale and the blood cultures, no growth. REVIEW OF ORDERS: Reveal the patient is on meropenem. Identification sensitivity is pending. ASSESSMENT AND PLAN: An 87-year-old female who is a custodial patient with hypertension, seizures, gastroesophageal reflux disease, history of kidney disease, anemia, history of lumbar fracture, history of urinary tract infection, sacral ulcers, Alzheimer's dementia; admitted with severe sepsis secondary to healthcare-associated pneumonia with an elevated procalcitonin and a gram-negative ale in the urine with acute systolic congestive heart failure on top of chronic congestive heart failure with acute kidney injury. Patient is on meropenem and doxycycline. We will check on the identification of gram-negative ale and we will follow closely with you. Bulmaro Clement MD
--- NOTE | 2017-03-23 22:47 | PN ---
DATE: 03/23/2017 PULMONARY PROGRESS NOTE REFERRING PHYSICIAN: Bushra Prakash MD. SUBJECTIVE: The patient is lying in the bed, head at 45 degrees. Much more awake and alert. Feels better. Receiving packed RBCs. No cough. No sputum production. No hemoptysis, hematemesis, hematuria and diarrhea. OBJECTIVE: GENERAL: In no acute distress. VITAL SIGNS: Temperature is 98, heart rate is 80, respiratory rate is 20, blood pressure 152/72, pulse ox 94% on 2 L nasal cannula. HEENT: Small oral cavity. NECK: Supple. No JVD. LUNGS: Have fair airflow with few rhonchi. HEART: S1 and S2. ABDOMEN: Soft, nontender. No organomegaly. EXTREMITY: No edema. NEUROLOGIC: Awake, alert. Follows simple command, but confused. MEDICATIONS: She is on Cardizem 60 mg twice a day, Colace 200 mg at bedtime p.r.n., Depakote 250 mg q. 8 hours, trazodone 50 mg at bedtime, doxycycline 100 mg twice a day, DuoNeb q. 6 hours, multivitamin including folic acid, vitamin B2 complex with C 1 tab daily, meropenem 500 mg q. 12 hours, Pepcid 40 mg daily, Senokot p.r.n., IV fluid normal saline 100 mL/hour, Tylenol p.r.n., vitamin D 50,000 units daily. LABORATORY DATA: Shows hemoglobin 7.2, hematocrit 22.7, WBC 9.2, platelet is 273. Sodium 155, potassium 3.9, chloride 118, bicarbonate 27, BUN is 52, creatinine 1.8, calcium 11.3, iron is 20, ferritin is 785, B12 is more than 1000, procalcitonin is 0.8, folate is more than 20. Urine culture has gram-negative ale. IMPRESSION AND PLAN: Healthcare-associated pneumonia, status post septic shock, hypertension, seizure disorder, gastroesophageal reflux disease, anemia, dementia, decubitus ulcer. Being transfused for severe anemia. Iron studies unremarkable, probably anemia of chronic disease. Seen by Surgery. We will get followup labs in the morning. Thank you and we will follow with you. Rosie Gutierres MD [facility] # [id number]
[2017-03-24] MEDS: Albuterol-Ipratrop 3 mg / 0.5 (3 ml) UD IH SCH ×5 (00:51→19:36)
[2017-03-24] MEDS: Sodium Chloride 0.9% 1,000 ML IV SCH (01:50)
--- NOTE | 2017-03-24 05:26 | PN ---
DATE: 03/23/2017 SUBJECTIVE: The patient is an 87-year-old female. The patient was seen and examined on the bedside on 03/23/2017, looking comfortable. No nausea, vomiting or diarrhea. No hematuria or hematochezia. No swelling of the leg. The patient is awake and alert, but confused. Received packed RBC. No cough, no shortness of breath. No sputum production. No hemoptysis, no hematuria, no hematochezia, no diarrhea. PHYSICAL EXAMINATION: VITAL SIGNS: Temperature 98, heart rate 80, respiratory rate 20, blood pressure 150/70, pulse oximetry 94% on 2 liters nasal cannula. HEENT: Head is normocephalic and atraumatic. Eyes: PERRLA. Extraocular muscles are intact. Conjunctivae are clear. Nose is patent. Mucous membranes are moist. NECK: Supple. No carotid bruits. No JVD or thyromegaly. CHEST: Bilaterally symmetrical. HEART: S1 and S2 positive. LUNGS: Has fair airflow with few rhonchi. ABDOMEN: Soft, nontender. No organomegaly. EXTREMITIES: No edema. No cyanosis. NEUROLOGIC: The patient is awake and alert. Follows simple command, but confused. MEDICATIONS: Cardizem, Colace, Depakote, trazodone, doxycycline, DuoNeb, multivitamins, folic acid, Pepcid, Senokot, Tylenol. LABORATORY DATA: Hemoglobin 7.2, hematocrit 22.7, white blood cells 9.2, platelets 273. Sodium 155, potassium 3.9, BUN 52, creatinine 1.8. ASSESSMENT AND PLAN: Ms. Maria Elena Ng is an 87-year-old female with healthcare-associated pneumonia, status post septic shock, hypertension, seizure disorder, gastroesophageal reflux disease, anemia, dementia, decubitus ulcer, being transfused for severe anemia. Iron studies are unremarkable, probably anemia of chronic disease. Seen by the Surgery. ID, Dr. Clement, is on the case. Seen by Dr. Gutierres. History of gastroesophageal reflux disease, history of lumbar fracture, urinary tract infection, sacral ulcer, dementia, admitted for severe sepsis secondary to healthcare-associated pneumonia. The patient is on meropenem and doxycycline. We will check on identification of gram-negative rods, and we will follow closely with you. Repeat labs. We will follow up. Bushra Prakash MD [facility] # [id number]
[2017-03-24] MEDS: Divalproex 125 mg EC Sprinkle Cap PO SCH ×3 (05:52→21:59)
[2017-03-24 07:52] LABS: HEMOGLOBIN 10.1 g/dL (12.0-16.0); MEAN CELL VOLUME 102.3 fl (80.0-105.0); MEAN CORPUSCULAR HEMOGLOBIN 32.9 pg (25.0-35.0); MEAN CORPUSCULAR HGB CONC 32.2 g/dl (31.0-37.0); MEAN PLATELET VOLUME 9.2 fl (7.0-11.0); RBC 3.07 10^6/uL (3.5-6.1); RED CELL DISTRIBUTION WIDTH 20.1 % (11.5-14.5); WHITE BLOOD COUNT 9.3 10^3/ul (4.5-11.0)
[2017-03-24 08:52] LABS: ALB/GLOB RATIO 0.8 (1.1-1.8); ALBUMIN 2.2 g/dL (3.0-4.8); CALCIUM 10.8 mg/dL (8.4-10.5)
[2017-03-24] MEDS ORDERED: Sodium Chloride 0.45% 1,000 ML IV SCH (10:15)
[2017-03-24] MEDS: Cholecalciferol 1,000 INTLU TAB PO SCH (11:20)
[2017-03-24] MEDS: Meropenem 500 MG in Sodium Chloride 0.9% 100 ML IVPB SCH ×2 (11:21→22:01)
[2017-03-24] MEDS: PROTEIN HYDROLYS PO SCH ×2 (11:22→18:08)
[2017-03-24] MEDS: AMINO ACIDS PO SCH ×2 (11:22→18:08)
[2017-03-24] MEDS: [UNRECOGNIZED DRUG - OTHER] PO SCH ×2 (11:22→18:08)
[2017-03-24] MEDS: Non Formulary Medication (Folic Acid/Vit B Complex And C [Rena-Vite Tablet] 1 TAB) PO SCH (11:22)
[2017-03-24] MEDS ORDERED: Darbepoetin Alfa 60 mcg/ml Inj SC ONE (12:17)
[2017-03-24] MEDS: Sodium Chloride 0.45% 1,000 ML IV SCH ×2 (12:37→19:53)
--- NOTE | 2017-03-24 13:05 | CON ---
DATE: NEPHROLOGY CONSULTATION HISTORY OF PRESENT ILLNESS: An 87-year-old female with past medical history of hypertension, seizure disorder, GERD, anemia, and dementia, group home resident, sent from group home due to shortness of breath, admitted for healthcare-associated pneumonia; Nephrology being consulted for worsening hypernatremia. History obtained from nursing staff and medical record as patient is demented and is currently not verbal. Patient found to have left lower lobe pneumonia, for which she has been started on antibiotics, currently on doxycycline and meropenem. Patient also with Gram-negative UTI. Per nursing staff, the patient does wake up to be able to be fed her pureed diet; patient was initially on normal saline at 100 mL/hour. PAST MEDICAL HISTORY: As above. Patient also with sacral decubitus ulcer, for which Surgery is following. FAMILY HISTORY: Unavailable. SOCIAL HISTORY: Unavailable. REVIEW OF SYSTEMS: Unavailable due to patient's dementia and nonverbal status. PHYSICAL EXAMINATION: VITAL SIGNS: This morning; blood pressure 139/71, heart rate 78, respirations 18, and temperature 97.5. GENERAL: Patient agitated while being examined, otherwise has been mostly somnolent. HEENT: Appears dry. No cervical lymphadenopathy. Appears cachectic. RESPIRATORY: Left lower lobe rales. Otherwise, no respiratory distress. No rhonchi. CARDIOVASCULAR: Heart sounds S1, S2 normal. No murmurs, no gallops, no rubs. GASTROINTESTINAL: Abdomen soft, nondistended, mildly tender. GENITOURINARY: No bladder distention, Kan in place. EXTREMITIES: Cachectic legs, no edema. NEUROLOGIC: Patient is not corporative for the exam, is contracted. SKIN: Has stage I ulcerations on heel bilaterally. DISTAL EXTREMITIES: 2+ bilateral dorsalis pedis pulses. LABORATORY DATA: This morning: CBC: WBC 9.3, hemoglobin 10.1, hematocrit 31.4, and platelets 258. Chemistry panel: Sodium 156, increased from 151 on presentation; potassium 3.8; chloride 122; bicarb 24. BUN 45, creatinine 1.5. Glucose 77. Calcium 10.8. Iron saturation 14%. Albumin 2.2. Urine studies on presentation: 30 mg/dL protein, positive nitrite, moderate leukocyte esterase, 20-25 wbc's per high-power field, many bacteria. Chest x-ray from presentation showing left-sided opacity. Otherwise, no definite increase in pulmonary vascular congestion. ASSESSMENT AND PLAN: 1. Acute kidney injury on chronic kidney disease. Baseline creatinine 1.4, increased to 1.8 on presentation, but improved back to 1.5 today after being given volume repletion. A. Appears to have non-proteinuric chronic kidney disease with previous UA showing negative protein. B. Likely has renovascular/cardiorenal component of chronic kidney disease. C. Avoid nephrotoxic agents such as NSAIDs and Fleet enema. D. Continue IV fluids as below. 2. Hypernatremia. The patient is demented at baseline, likely unable to ask for water; currently with normal 2.5 L free water deficit. A. Increase half-NS to 125 mL/hour; if serum sodium is improving, then can continue the same at group home with close followup with repeat BMP in 24 hours. 3. Anemia. The patient with iron deficiency and also likely with anemia of chronic disease. Will benefit from dose of EPO long-term. 4. Hypertension. Blood pressure currently controlled on Cardizem 60 mg b.i.d., consider increasing to t.i.d. dosing. 5. Chronic kidney disease. Baseline creatinine of 1.4, corresponding to EGFR of 35 mL/min; we will check PTH and 25-hydroxy vitamin D levels. Thank you for this referral. We will be following up closely. Richar Tucker MD
--- NOTE | 2017-03-24 14:28 | CP.PCM.PN ---
Subjective - Date & Time of Evaluation Date of Evaluation: 03/24/17 Time of Evaluation: 07:40 - Subjective Subjective: Patient seen and examined at bedside. Patietn was given 2units of PRBC's yesterday for anemia. Patient's dressing's were changed at bedside this AM. No change in wounds. Will be changed at bedsdie by nurses again this evening Objective - Vital Signs/Intake and Output Vital Signs (last 24 hours): Temp Pulse Resp BP Pulse Ox 97.5 F L 78 18 139/71 94 L 03/23/17 20:12 03/24/17 11:20 03/24/17 00:51 03/24/17 11:20 03/23/17 06:00 Intake and Output: 03/24/17 03/24/17 06:59 18:59 Intake Total 445 Output Total 700 Balance -255 - Medications Medications: Current Medications Acetaminophen (Tylenol 325mg Tab) 325 mg PO Q4 [facility] Last Admin: 03/24/17 11:21 Dose: Not Given Albuterol/Ipratropium (Duoneb 3 Mg/0.5 Mg (3 Ml) Ud) 3 ml IH [id number] [facility] Last Admin: 03/24/17 14:16 Dose: 3 ml Cholecalciferol (Vitamin D) 5,000 intlu PO DAILY [facility] Last Admin: 03/24/17 11:20 Dose: 5,000 intlu Diltiazem HCl (Cardizem) 60 mg PO BID [facility] Last Admin: 03/24/17 11:20 Dose: 60 mg Divalproex Sodium (Depakote Sprinkles) 250 mg PO Q8 [facility] PRN Reason: Protocol Last Admin: 03/24/17 05:52 Dose: 250 mg Docusate Sodium (Colace Liquid) 200 mg PO HS PRN PRN Reason: Constipation Doxycycline Hyclate (Doryx) 100 mg PO Q12 [facility] PRN Reason: Protocol Stop: 04/01/17 22:01 Last Admin: 03/24/17 11:19 Dose: 100 mg Famotidine (Pepcid) 40 mg PO HS [facility] Last Admin: 03/23/17 22:16 Dose: 40 mg Meropenem 500 mg/ Sodium (Chloride) 100 mls @ 100 mls/hr IVPB Q12 [facility] PRN Reason: Protocol Last Admin: 03/24/17 11:21 Dose: 100 mls/hr Sodium Chloride (Sodium Chloride 0.45%) 1,000 mls @ 125 mls/hr IV .Q8H [facility] Last Admin: 03/24/17 12:37 Dose: 125 mls/hr Non-Formulary Medication (Amino Acids/Protein Hydrolys [Pro-Stat Profile Liquid Packet]) 30 ml PO DAILY [facility] Last Admin: 03/24/17 11:22 Dose: 30 ml Non-Formulary Medication (Folic Acid/Vit B Complex And C [Chery-Cady Tablet]) 1 tab PO DAILY [facility] Last Admin: 03/24/17 11:22 Dose: Not Given Sennosides (Senokot Tab) 17.2 mg PO DAILY [facility] Last Admin: 03/24/17 11:20 Dose: 17.2 mg Trazodone HCl (Desyrel) 50 mg PO HS [facility] Last Admin: 03/23/17 22:12 Dose: 50 mg - Labs Labs: 03/24/17 07:00 03/24/17 07:00 PT 11.7 SECONDS (9.4-12.5) 03/21/17 21:20 INR 1.03 (0.93-1.08) 03/21/17 21:20 APTT 28.8 Seconds (25.1-36.5) 03/21/17 21:20 - Constitutional Appears: Non-toxic, No Acute Distress, Chronically Ill - Head Exam Head Exam: ATRAUMATIC, NORMOCEPHALIC - Eye Exam Eye Exam: Normal appearance - Respiratory Exam Respiratory Exam: NORMAL BREATHING PATTERN. absent: Accessory Muscle Use, Respiratory Distress - Cardiovascular Exam Cardiovascular Exam: RRR - GI/Abdominal Exam GI & Abdominal Exam: absent: Distended - Back Exam Additional comments: sacral wound tracking 1-2cm caudally wihtout purulent drainage, right gluteal wound with healthy granulation tissue at base and no necrosis - Neurological Exam Neurological Exam: Altered - Psychiatric Exam Psychiatric exam: Anxious - Skin Skin Exam: Dry, Intact (except as noted above), Normal Color, Warm Assessment and Plan - Assessment and Plan (Free Text) Assessment: 87F with stage 4 sacral and right gluteal pressure ulcers Plan: -No indication for surgical debridement, No necrosis or infection -Continue BID alginate dressing changes on the right gluteus -Continue BID iodoform packing changes on the sacral wound -management per Primary -antibiotics per ID Discussed with DR. Sergio Winston, PGY2
[2017-03-24 15:48] LABS: CREATININE,RANDOM URINE 41 mg/dL
--- NOTE | 2017-03-24 18:28 | PN ---
DATE: 03/24/2017 SUBJECTIVE: Patient is in bed, in no acute distress, nontoxic. PHYSICAL EXAMINATION: VITAL SIGNS: Temperature is 97, blood pressure is 160/70, respiratory rate of 23, heart rate of 70. HEENT: Unremarkable. NECK: Supple. LUNGS: Have decreased breath sounds. HEART: Normal S1, S2. ABDOMEN: Soft, nontender. LABORATORY EXAMINATION: Reveals a white count of 9.3, hemoglobin of 10, and platelets of 259. Creatinine is 1.5. Procalcitonin is 0.88. Urinalysis is noted. Influenza is negative. Microbiology reveals E. coli in the urine. Blood cultures are negative. The E. coli is pansensitive. ASSESSMENT AND PLAN: This is an 87-year-old female, a snf patient with hypertension, seizures, and gastroesophageal reflux disease, history of kidney disease, anemia, lumbar fracture, history of urinary tract infection, sacral ulcers, Alzheimer's dementia, admitted with severe sepsis secondary to healthcare-associated pneumonia, elevated procalcitonin, and E. coli, urine as the source, with acute systolic congestive heart failure on top of chronic congestive heart failure with acute kidney injury, on meropenem and doxycycline. PATIENT HAS PENICILLIN ALLERGY. Today is day number 3 of 4 to 7 days of antibiotics. Patient's white count is normalized and maybe able to switch to p.o. antibiotics in the next 24 hours. We will follow with you. Patient's QTC is 447. The Escherichia coli is resistant to quinolone. We will repeat the procalcitonin today. Bulmaro Clement MD
--- NOTE | 2017-03-24 21:31 | PN ---
DATE: 03/24/2017 PULMONARY PROGRESS NOTE REFERRING PHYSICIAN: Bushra Prakash MD. SUBJECTIVE: The patient is lying in the bed, head at 45 degrees, sleepy, arousable. Night was unremarkable. Had mild cough. No sputum production. No hemoptysis, no hematemesis, no hematuria, no diarrhea, no leg swelling reported. OBJECTIVE: GENERAL: In no acute distress. VITAL SIGNS: Temperature is 98, heart rate 78, respiratory rate is 20, blood pressure 139/71, pulse ox 97% on 2 liters nasal cannula. HEENT: Moist mucous membranes. No ulcer or thrush noted. NECK: Supple, no JVD. LUNGS: Has fair airflow with few rhonchi. HEART: S1, S2. ABDOMEN: Soft, nontender. No organomegaly. EXTREMITIES: There is no edema. NEUROLOGIC: Sleepy, arousable. Follows simple commands. MEDICATIONS: She is on 30 mL daily, Cardizem 60 mg twice a day, Colace 200 mg at bedtime, Depakote 250 mg q. 8 hours, trazodone is 50 mg at bedtime, doxycycline 100 mg twice a day, DuoNeb q. 6 hours, Pepcid 40 mg at bedtime., Senokot p.r.n. basis, IV fluid half normal saline 125 mL per hour, Tylenol p.r.n., vitamin D 5000 international unit daily. LABORATORY DATA: Shows hemoglobin 10.1, hematocrit 31.4, WBC 9.3, platelet is 258. Sodium 156, potassium 3.8, chloride 122, bicarbonate 24, BUN 45, creatinine 1.5, calcium 10.8, iron 20. AST 20, ALT 26, alkaline phosphatase is 67, albumin is 2.2, procalcitonin 0.88. Influenza antibodies are negative. IMPRESSION AND PLAN: Healthcare-associated pneumonia, improved septic shock, hypertension, seizure disorder, gastroesophageal reflux disease, anemia, dementia, decubitus ulcer. Pulmonary point of view, doing okay, keep heat at 45 degrees, bronchodilator, antibiotics, covering healthcare-associated organism, aspiration precaution, pressure ulcer precaution. Thank you and we will follow with you. Rosie Gutierres MD
--- NOTE | 2017-03-24 23:29 | PN ---
DATE: SUBJECTIVE: The patient is an 87-year-old female. The patient was seen and examined at the bedside, looking comfortable, sleepy, arousable, a little bit more lethargic than usual. No change in the wounds, dressing was changed. No fever. No chills. No headache. No dizziness. PHYSICAL EXAMINATION: VITAL SIGNS: Temperature 97.5, pulse 78, respiratory rate 18, blood pressure 139/71, pulse oximetry 94. HEENT: Head normocephalic, atraumatic. Eyes: PERRLA. Extraocular movements are intact. Conjunctivae clear. Nose patent. NECK: Supple. No carotid bruit, JVD or thyromegaly. CHEST: Bilaterally symmetrical. HEART: S1 and S2 positive. LUNGS: Clear to auscultation. ABDOMEN: Soft. Bowel sounds positive. No organomegaly. EXTREMITIES: No edema. No cyanosis. NEUROLOGICAL: The patient is sleepy, arousable. can not do complete neurological examination. MEDICATIONS: Tylenol, Duo-Neb, vitamin D, Cardizem, Depakote, docusate, doxycycline, Pepcid, meropenem, Senokot, and trazodone. LABORATORY DATA: White blood cell 9.3, hemoglobin 10.1, hematocrit 31.4, platelet 215. Sodium 156, potassium 3.8, BUN 45, creatinine 1.7, glucose 77. ASSESSMENT AND PLAN: Ms. Maria Elena Ng is an 87-year-old lady with anemia status post blood transfusion, hypernatremia, renal insufficiency. Nephrology consult called. 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 No indication for surgical debridement and no necrosis or infection. Continue b.i.d. dressing changes on the right gluteal. Continue b.i.d. iodoform packing changes on the sacral wound. 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 Has history of hypertension and seizures, gastroesophageal reflux disease, history of kidney disease, lumbar fracture, urinary tract infection, advanced dementia, healthcare-associated pneumonia, elevated procalcitonin with Escherichia coli, urine as the source, with acute systolic congestive heart failure on the top of chronic congestive heart failure with acute kidney injury, on meropenem and doxycycline. We will repeat the 3 of four to seven days of antibiotics. White count is normalizing. Escherichia coli is resistant to quinolone. Discussion done with nurse practitioner. Gastrointestinal and deep venous thrombosis prophylaxis. Repeat labs. We will follow. Bushra Prakash MD MTDPrabhakar
[2017-03-25] MEDS: Albuterol-Ipratrop 3 mg / 0.5 (3 ml) UD IH SCH ×4 (02:20→19:49)
[2017-03-25] MEDS: Sodium Chloride 0.45% 1,000 ML IV SCH (05:00)
[2017-03-25] MEDS: Divalproex 125 mg EC Sprinkle Cap PO SCH ×3 (05:31→22:38)
[2017-03-25 07:52] LABS: HEMOGLOBIN 10.2 g/dL (12.0-16.0); MEAN CELL VOLUME 102.2 fl (80.0-105.0); MEAN CORPUSCULAR HEMOGLOBIN 32.7 pg (25.0-35.0); MEAN PLATELET VOLUME 9.3 fl (7.0-11.0); RBC 3.12 10^6/uL (3.5-6.1); RED CELL DISTRIBUTION WIDTH 18.9 % (11.5-14.5); WHITE BLOOD COUNT 9.8 10^3/ul (4.5-11.0)
[2017-03-25] MEDS: AMINO ACIDS PO SCH (09:19)
[2017-03-25] MEDS: PROTEIN HYDROLYS PO SCH (09:19)
[2017-03-25] MEDS: [UNRECOGNIZED DRUG - OTHER] PO SCH (09:19)
[2017-03-25] MEDS: Meropenem 500 MG in Sodium Chloride 0.9% 100 ML IVPB SCH ×2 (09:20→22:38)
[2017-03-25] MEDS: Non Formulary Medication (Folic Acid/Vit B Complex And C [Rena-Vite Tablet] 1 TAB) PO SCH (09:20)
[2017-03-25] MEDS: Cholecalciferol 1,000 INTLU TAB PO SCH (09:21)
--- NOTE | 2017-03-25 09:32 | CP.PCM.PN ---
Subjective - Date & Time of Evaluation Date of Evaluation: 03/25/17 Time of Evaluation: 07:10 - Subjective Subjective: Patient seen and examined this AM. No acute events overnight. Changed the dressings at bedside Objective - Vital Signs/Intake and Output Vital Signs (last 24 hours): Temp Pulse Resp BP Pulse Ox 97.6 F 78 18 132/78 99 03/24/17 16:52 03/24/17 18:06 03/24/17 16:52 03/24/17 18:06 03/24/17 16:52 Intake and Output: 03/25/17 03/25/17 06:59 18:59 Intake Total 0 Output Total 500 Balance -500 - Medications Medications: Current Medications Acetaminophen (Tylenol 325mg Tab) 325 mg PO Q4 [facility] Last Admin: 03/25/17 09:21 Dose: Not Given Albuterol/Ipratropium (Duoneb 3 Mg/0.5 Mg (3 Ml) Ud) 3 ml IH [id number] [facility] Last Admin: 03/25/17 08:07 Dose: 3 ml Cholecalciferol (Vitamin D) 5,000 intlu PO DAILY [facility] Last Admin: 03/25/17 09:21 Dose: Not Given Diltiazem HCl (Cardizem) 60 mg PO BID [facility] Last Admin: 03/25/17 09:19 Dose: Not Given Divalproex Sodium (Depakote Sprinkles) 250 mg PO Q8 [facility] PRN Reason: Protocol Last Admin: 03/25/17 05:31 Dose: Not Given Docusate Sodium (Colace Liquid) 200 mg PO HS PRN PRN Reason: Constipation Doxycycline Hyclate (Doryx) 100 mg PO Q12 [facility] PRN Reason: Protocol Stop: 04/01/17 22:01 Last Admin: 03/25/17 09:19 Dose: Not Given Famotidine (Pepcid) 40 mg PO HS [facility] Last Admin: 03/24/17 22:02 Dose: 40 mg Meropenem 500 mg/ Sodium (Chloride) 100 mls @ 100 mls/hr IVPB Q12 [facility] PRN Reason: Protocol Last Admin: 03/25/17 09:20 Dose: 100 mls/hr Sodium Chloride (Sodium Chloride 0.45%) 1,000 mls @ 125 mls/hr IV .Q8H [facility] Last Admin: 03/25/17 05:00 Dose: 125 mls/hr Non-Formulary Medication (Amino Acids/Protein Hydrolys [Pro-Stat Profile Liquid Packet]) 30 ml PO DAILY [facility] Last Admin: 03/25/17 09:19 Dose: Not Given Non-Formulary Medication (Folic Acid/Vit B Complex And C [Chery-Cady Tablet]) 1 tab PO DAILY [facility] Last Admin: 03/25/17 09:20 Dose: Not Given Sennosides (Senokot Tab) 17.2 mg PO DAILY [facility] Last Admin: 03/25/17 09:21 Dose: Not Given Trazodone HCl (Desyrel) 50 mg PO HS [facility] Last Admin: 03/24/17 22:00 Dose: 50 mg - Labs Labs: 03/25/17 07:00 03/25/17 07:00 PT 11.7 SECONDS (9.4-12.5) 03/21/17 21:20 INR 1.03 (0.93-1.08) 03/21/17 21:20 APTT 28.8 Seconds (25.1-36.5) 03/21/17 21:20 - Constitutional Appears: Non-toxic, No Acute Distress, Chronically Ill - Head Exam Head Exam: ATRAUMATIC, NORMOCEPHALIC - ENT Exam ENT Exam: Mucous Membranes Moist, Normal Oropharynx - Respiratory Exam Respiratory Exam: NORMAL BREATHING PATTERN. absent: Accessory Muscle Use, Respiratory Distress - Cardiovascular Exam Cardiovascular Exam: RRR - GI/Abdominal Exam GI & Abdominal Exam: Soft. absent: Distended - Extremities Exam Extremities Exam: absent: Calf Tenderness, Pedal Edema Additional comments: contracted lower extremities - Back Exam Additional comments: sacral wound tracking 1-2cm caudally wihtout purulent drainage, right gluteal wound with healthy granulation tissue at base and no necrosis - Neurological Exam Neurological Exam: Altered - Psychiatric Exam Psychiatric exam: Anxious - Skin Skin Exam: Dry, Intact (except as noted above), Normal Color, Warm Assessment and Plan - Assessment and Plan (Free Text) Assessment: 87F with stage 4 sacral and right gluteal pressure ulcers Plan: -No indication or plans for surgical debridement, No necrosis or infection -Continue BID alginate dressing changes on the right gluteus -Continue BID iodoform packing changes on the sacral wound -management per Primary -antibiotics per ID -Patient should continue above wound care recommendations as an outpatient. Follow up with Dr. Hill as needed for further wound care -Will continue to follow while admitted Discussed with DR. Sergio Winston, PGY2
[2017-03-25] MEDS: Dextrose 5%/0.33% NS 1,000 ML IV SCH ×2 (10:35→18:33)
--- NOTE | 2017-03-25 18:57 | PN ---
DATE: 03/25/2017 SUBJECTIVE: Patient is in room 361, bed 1. Patient is in bed, in no acute distress. PHYSICAL EXAMINATION: VITAL SIGNS: Temperature is 97, blood pressure is 170/80, respiratory rate of 18, heart rate of 103. HEENT: Unremarkable. NECK: Supple. LUNGS: Have decreased breath sounds. HEART: Normal S1, S2. ABDOMEN: Soft and nontender. LABORATORY EXAMINATION: Reveals a white count of 9.8, hemoglobin of 10, platelets of 266. Chemistries reveal a BUN of 43, creatinine of 1.5. Procalcitonin is 0.51. Urinalysis is noted and influenza is negative. Microbiology reveals E. coli in the urine. REVIEW OF ORDERS: Reveals the patient to be on doxycycline and meropenem. ASSESSMENT AND PLAN: This is an 87-year-old prison patient with hypertension, seizures, gastroesophageal reflux disease, history of kidney disease, anemia, history of lumbar fracture, urinary tract infection, sacral ulcers, Alzheimer's dementia. On this admission, patient is admitted with #1, severe sepsis secondary to healthcare-associated pneumonia, elevated procalcitonin, and Escherichia coli, urine as the source on top of acute systolic congestive heart failure on top of chronic congestive heart failure with acute kidney injury, on meropenem and doxycycline since the patient is allergic to penicillin. Today is day number 4 of antibiotics. Would complete 4 to 7 days of antibiotics, maybe able to switch to p.o. Levaquin. Patient's QTC is 447; however, the Escherichia coli in the urine is resistant to quinolones. Today is day number 4 of 4 to 7 days of antibiotics. PATIENT IS ALLERGIC TO PENICILLIN. Bulmaro Clement MD
--- NOTE | 2017-03-25 22:23 | CP.PCM.PN ---
Subjective - Date & Time of Evaluation Date of Evaluation: 03/25/17 Time of Evaluation: 11:00 - Subjective Subjective: Patient somnolent, not able to take PO intake per nursing staff; Objective - Vital Signs/Intake and Output Vital Signs (last 24 hours): Temp Pulse Resp BP Pulse Ox 96.7 F L 97 H 19 177/91 H 97 03/25/17 16:30 03/25/17 19:01 03/25/17 16:30 03/25/17 19:01 03/25/17 16:30 Intake and Output: 03/25/17 03/26/17 18:59 06:59 Intake Total 0 Output Total 700 Balance -700 - Medications Medications: Current Medications Acetaminophen (Tylenol 325mg Tab) 325 mg PO Q4 [facility] Last Admin: 03/25/17 16:46 Dose: Not Given Albuterol/Ipratropium (Duoneb 3 Mg/0.5 Mg (3 Ml) Ud) 3 ml IH [id number] [facility] Last Admin: 03/25/17 19:49 Dose: 3 ml Cholecalciferol (Vitamin D) 5,000 intlu PO DAILY [facility] Last Admin: 03/25/17 09:21 Dose: Not Given Clonidine HCl (Catapres-Tts2 0.2 Mg/24 Hr) 1 patch TD Q7D@1000 [facility] Last Admin: 03/25/17 19:01 Dose: 1 patch Diltiazem HCl (Cardizem) 60 mg PO BID [facility] Last Admin: 03/25/17 18:21 Dose: Not Given Divalproex Sodium (Depakote Sprinkles) 250 mg PO Q8 [facility] PRN Reason: Protocol Last Admin: 03/25/17 14:04 Dose: Not Given Docusate Sodium (Colace Liquid) 200 mg PO HS PRN PRN Reason: Constipation Doxycycline Hyclate (Doryx) 100 mg PO Q12 [facility] PRN Reason: Protocol Stop: 04/01/17 22:01 Last Admin: 03/25/17 09:19 Dose: Not Given Famotidine (Pepcid) 40 mg PO HS [facility] Last Admin: 03/24/17 22:02 Dose: 40 mg Meropenem 500 mg/ Sodium (Chloride) 100 mls @ 100 mls/hr IVPB Q12 [facility] PRN Reason: Protocol Last Admin: 02/18/18 09:20 Dose: 100 mls/hr Dextrose/Sodium Chloride (Dextrose 5%/0.33% Ns 1000 Ml) 1,000 mls @ 125 mls/hr IV .Q8H [facility] Last Admin: 03/25/17 18:33 Dose: 125 mls/hr Non-Formulary Medication (Amino Acids/Protein Hydrolys [Pro-Stat Profile Liquid Packet]) 30 ml PO DAILY [facility] Last Admin: 03/25/17 09:19 Dose: Not Given Non-Formulary Medication (Folic Acid/Vit B Complex And C [Chery-Cady Tablet]) 1 tab PO DAILY [facility] Last Admin: 03/25/17 09:20 Dose: Not Given Sennosides (Senokot Tab) 17.2 mg PO DAILY [facility] Last Admin: 03/25/17 09:21 Dose: Not Given - Labs Labs: 03/25/17 07:00 03/25/17 07:00 PT 11.7 SECONDS (9.4-12.5) 03/21/17 21:20 INR 1.03 (0.93-1.08) 03/21/17 21:20 APTT 28.8 Seconds (25.1-36.5) 03/21/17 21:20 - Constitutional Appears: Non-toxic, No Acute Distress - Eye Exam Eye Exam: absent: Scleral icterus - Respiratory Exam Respiratory Exam: absent: Rhonchi, Wheezes, Respiratory Distress - Cardiovascular Exam Cardiovascular Exam: RRR, +S1, +S2 - GI/Abdominal Exam GI & Abdominal Exam: Soft. absent: Distended, Tenderness - Extremities Exam Additional comments: no leg edema - Neurological Exam Neurological Exam: Alert, Awake - Psychiatric Exam Psychiatric exam: Agitated - Skin Skin Exam: Warm. absent: Cyanosis Assessment and Plan (1) Hypernatremia Assessment & Plan: Slightly improved; patient not having any PO intake; changed IVF to D5-1/3NS at 125 cc/hr; Status: Acute (2) MILLER (acute kidney injury) Assessment & Plan: MILLER on CKD III; improved with IVF; continue as above; Status: Acute (3) Hypercalcemia Assessment & Plan: May be driving volume depletion/dehydration; vitamin D 25-OH level elevated; stopping vit D supplementation; awaiting PTH level; Status: Acute (4) Sepsis Assessment & Plan: On meropnem and doxycycline; continue per ID, dose meropnem for Crcl < 40; Status: Acute
--- NOTE | 2017-03-25 22:24 | PN ---
DATE: 03/25/2017 PULMONARY PROGRESS NOTE REFERRING PHYSICIAN: Bushra Prakash MD. SUBJECTIVE: She is lying in the bed, eyes are closed, sleepy, arousable. Follows simple command. No cough, no sputum production. No hemoptysis, no hematemesis. No hematuria or diarrhea reported. PHYSICAL EXAMINATION: GENERAL: In no acute distress. VITAL SIGNS: Temperature is 98, heart rate 78, respiratory rate is 20, blood pressure 132/78, pulse ox 99% on room air. HEENT: Moist mucous membranes. No ulcer or thrush noted. NECK: Supple, no JVD. LUNGS: Has fair airflow with a few rhonchi. HEART: S1, S2. ABDOMEN: Soft, nontender. No organomegaly. EXTREMITIES: There is no edema. NEUROLOGIC: Sleepy, arousable. Follows simple commands, but confused. LABORATORY DATA: Shows hemoglobin 10.2, hematocrit 31.9, WBC 9.8, platelet is 266. Sodium 153, potassium 3.7, chloride 120, bicarbonate 21, BUN 53, creatinine 1.5, glucose is 55, procalcitonin is 0.51. Urine culture has E. coli. MEDICATIONS: She is on Pro-Stat 30 mL daily, Cardizem 60 mg twice a day, Colace 200 mg at bedtime p.r.n., Depakote 250 mg q.8 hours, trazodone 50 mg at bedtime, doxycycline 100 mg twice a day, DuoNeb q.6 hours, meropenem 500 mg q.12 hours, Pepcid 40 mg at bedtime., Senokot p.r.n. basis, Tylenol p.r.n., vitamin D 50,000 unit weekly. ASSESSMENT AND PLAN: Healthcare-associated pneumonia, urinary tract infection, hypertension, seizure disorder, gastroesophageal reflux disease, anemia, dementia, decubitus ulcer. We will discontinue trazodone. She is too sleepy to even get medication and feed. We will see how she does. Continue intravenous fluids. Continue antibiotics. Gastric prophylaxis. Sequential compression device to lower extremity. Thank you and we will follow with you. Rosie Gutierres MD [facility] # [id number]
--- NOTE | 2017-03-25 23:39 | PN ---
DATE: SUBJECTIVE: Patient is an 87-year-old female. Patient was seen and examined at the bedside. No change in the status. No fever. No chills. Looks like comfortable, not anxious. Patient is not able to give review of system. PHYSICAL EXAMINATION: VITAL SIGNS: Temperature 97.6, pulse 78, respiratory rate 18, blood pressure 132/78, pulse oximetry 99%. HEENT: Head is normocephalic and atraumatic. Eyes: PERRLA. Extraocular muscles are intact. Conjunctivae clear. Nose is patent. Mucous membranes moist. NECK: Supple. No carotid bruits. No JVD or thyromegaly. CHEST: Bilaterally symmetrical. HEART: S1 and S2 positive. LUNGS: Clear to auscultation. ABDOMEN: Soft. Bowel sounds present. No organomegaly. EXTREMITIES: No edema. No cyanosis. NEUROLOGIC: The patient is sleepy. She is not able to obey orders. MEDICATIONS: DuoNeb, vitamin D, Cardizem, Depakote, docusate, doxycycline, Pepcid, meropenem, NS, Senokot, trazodone. LABORATORY DATA: White blood cells 9.8, hemoglobin 10.2, hematocrit 31.9, platelets 266. Sodium 153, potassium 3.7, BUN noted , creatinine 1.5, glucose 55. ASSESSMENT AND PLAN: Ms. 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 No indication or plan for surgical debridement. No necrosis or infection. Continue with b.i.d. Alginate dressing changes on the right gluteus. Continue b.i.d. iodoform packing changes on the sacral wound. History of hypertension, seizure disorder, gastroesophageal reflux disease, lumbar fracture, urinary tract infection, advanced dementia, anemia status post blood transfusion, healthcare-associated pneumonia, elevated procalcitonin and Escherichia coli, urine as the source, with acute systolic congestive heart failure on the top of chronic congestive heart failure with acute kidney injury, on meropenem and doxycycline. Today is day #4 of the 7 days of antibiotics. Gastrointestinal and deep venous thrombosis prophylaxis. Repeat labs. We will follow up. Bushra Prakash MD [facility] # [id number] SHANNAN
[2017-03-26] MEDS: Albuterol-Ipratrop 3 mg / 0.5 (3 ml) UD IH SCH ×4 (03:21→23:00)
[2017-03-26] MEDS: Dextrose 5%/0.33% NS 1,000 ML IV SCH ×4 (03:39→20:41)
[2017-03-26] MEDS: Divalproex 125 mg EC Sprinkle Cap PO SCH ×3 (06:06→22:10)
[2017-03-26 11:47] LABS: EOS # 0.2 (0.0-0.7); EOS % 2.9 % (1.5-5.0); GRAN # 6.25 (1.4-6.5); GRAN % 81.9 % (50.0-68.0); HEMOGLOBIN 9.8 g/dL (12.0-16.0); LYMPH # 0.8 (1.2-3.4); LYMPH % 10.2 % (22.0-35.0); MEAN CELL VOLUME 101.4 fl (80.0-105.0); MEAN CORPUSCULAR HEMOGLOBIN 33.6 pg (25.0-35.0); MEAN CORPUSCULAR HGB CONC 33.1 g/dl (31.0-37.0); MEAN PLATELET VOLUME 8.8 fl (7.0-11.0); MONO # 0.4 (0.1-0.6); RBC 2.92 10^6/uL (3.5-6.1); RED CELL DISTRIBUTION WIDTH 16.9 % (11.5-14.5); WHITE BLOOD COUNT 7.6 10^3/ul (4.5-11.0)
--- NOTE | 2017-03-26 11:48 | CP.PCM.PN ---
Subjective - Date & Time of Evaluation Date of Evaluation: 03/26/17 Time of Evaluation: 06:50 - Subjective Subjective: Patient seen and examined at bedside. No changes in clinical status. Changed dressings at bedside Objective - Vital Signs/Intake and Output Vital Signs (last 24 hours): Temp Pulse Resp BP Pulse Ox 97.8 F 74 20 145/68 99 03/26/17 09:08 03/26/17 09:08 03/26/17 09:08 03/26/17 09:08 03/26/17 09:08 Intake and Output: 03/26/17 03/26/17 06:59 18:59 Intake Total 0 Output Total 950 Balance -950 - Medications Medications: Current Medications Acetaminophen (Tylenol 325mg Tab) 325 mg PO Q4 [facility] Last Admin: 03/26/17 02:06 Dose: Not Given Albuterol/Ipratropium (Duoneb 3 Mg/0.5 Mg (3 Ml) Ud) 3 ml IH [id number] [facility] Last Admin: 03/26/17 07:58 Dose: 3 ml Clonidine HCl (Catapres-Tts2 0.2 Mg/24 Hr) 1 patch TD Q7D@1000 [facility] Last Admin: 03/25/17 19:01 Dose: 1 patch Diltiazem HCl (Cardizem) 60 mg PO BID [facility] Last Admin: 03/25/17 18:21 Dose: Not Given Divalproex Sodium (Depakote Sprinkles) 250 mg PO Q8 [facility] PRN Reason: Protocol Last Admin: 03/26/17 06:06 Dose: Not Given Docusate Sodium (Colace Liquid) 200 mg PO HS PRN PRN Reason: Constipation Doxycycline Hyclate (Doryx) 100 mg PO Q12 [facility] PRN Reason: Protocol Stop: 04/01/17 22:01 Last Admin: 03/25/17 22:38 Dose: Not Given Famotidine (Pepcid) 40 mg PO HS [facility] Last Admin: 03/25/17 22:39 Dose: Not Given Meropenem 500 mg/ Sodium (Chloride) 100 mls @ 100 mls/hr IVPB Q12 [facility] PRN Reason: Protocol Last Admin: 03/25/17 22:38 Dose: 100 mls/hr Dextrose/Sodium Chloride (Dextrose 5%/0.33% Ns 1000 Ml) 1,000 mls @ 125 mls/hr IV .Q8H [facility] Last Admin: 03/26/17 03:39 Dose: 125 mls/hr Non-Formulary Medication (Amino Acids/Protein Hydrolys [Pro-Stat Profile Liquid Packet]) 30 ml PO DAILY [facility] Last Admin: 03/25/17 09:19 Dose: Not Given Non-Formulary Medication (Folic Acid/Vit B Complex And C [Chery-Cady Tablet]) 1 tab PO DAILY [facility] Last Admin: 03/25/17 09:20 Dose: Not Given Sennosides (Senokot Tab) 17.2 mg PO DAILY [facility] Last Admin: 03/25/17 09:21 Dose: Not Given - Labs Labs: 03/25/17 07:00 03/25/17 07:00 PT 11.7 SECONDS (9.4-12.5) 03/21/17 21:20 INR 1.03 (0.93-1.08) 03/21/17 21:20 APTT 28.8 Seconds (25.1-36.5) 03/21/17 21:20 - Constitutional Appears: No Acute Distress, Chronically Ill - Head Exam Head Exam: ATRAUMATIC, NORMOCEPHALIC - Eye Exam Eye Exam: Normal appearance - ENT Exam ENT Exam: Mucous Membranes Moist - Respiratory Exam Respiratory Exam: NORMAL BREATHING PATTERN. absent: Accessory Muscle Use, Respiratory Distress - GI/Abdominal Exam GI & Abdominal Exam: absent: Distended - Extremities Exam Extremities Exam: absent: Calf Tenderness, Pedal Edema, Tenderness Additional comments: contracted LE's - Back Exam Additional comments: sacaral wound with subcutaneous track packed with iodoform gauze, no purulent drainage or surrounding erythema right gluteal wound without necrotic tissue, packed with alginate - Neurological Exam Neurological Exam: Altered, Awake - Psychiatric Exam Psychiatric exam: Anxious, Flat Affect - Skin Skin Exam: Dry, Normal Color, Warm Assessment and Plan - Assessment and Plan (Free Text) Assessment: 87F with stage 4 sacral and right gluteal pressure ulcers Plan: -No indication or plans for surgical debridement, No necrosis or infection -antibiotics per ID -Continue BID alginate dressing changes on the right gluteus -Continue BID iodoform packing changes on the sacral wound -management per Primary -Patient should continue above wound care recommendations as an outpatient. Follow up with Dr. Hill as needed for further wound care -Will continue to follow while admitted Discussed with DR. Sergio Winston, PGY2
[2017-03-26 12:00] LABS: ALB/GLOB RATIO 0.8 (1.1-1.8); ALT/SGPT 19 U/L (7-56); AST/SGOT 19 U/L (14-36); BLOOD UREA NITROGEN 34 mg/dL (7-21); CALCIUM 10.2 mg/dL (8.4-10.5); GFR AFRICAN-AMERICAN > 60; GFR NON-AFRICAN AMERICAN 52; MAGNESIUM 1.8 mg/dL (1.7-2.2)
[2017-03-26] MEDS: PROTEIN HYDROLYS PO SCH (12:29)
[2017-03-26] MEDS: AMINO ACIDS PO SCH (12:29)
[2017-03-26] MEDS: [UNRECOGNIZED DRUG - OTHER] PO SCH (12:29)
[2017-03-26] MEDS: Meropenem 500 MG in Sodium Chloride 0.9% 100 ML IVPB SCH ×2 (12:32→22:11)
--- NOTE | 2017-03-26 16:28 | CP.PCM.PN ---
Subjective - Date & Time of Evaluation Date of Evaluation: 03/26/17 Time of Evaluation: 10:45 - Subjective Subjective: No fevers, not in distress. Objective - Vital Signs/Intake and Output Vital Signs (last 24 hours): Temp Pulse Resp BP Pulse Ox 97.8 F 74 20 145/68 99 03/26/17 09:08 03/26/17 09:08 03/26/17 09:08 03/26/17 09:08 03/26/17 09:08 Intake and Output: 03/26/17 03/26/17 06:59 18:59 Intake Total 0 Output Total 950 Balance -950 - Medications Medications: Current Medications Acetaminophen (Tylenol 325mg Tab) 325 mg PO Q4 [facility] Last Admin: 03/26/17 02:06 Dose: Not Given Albuterol/Ipratropium (Duoneb 3 Mg/0.5 Mg (3 Ml) Ud) 3 ml IH [id number] [facility] Last Admin: 03/26/17 07:58 Dose: 3 ml Clonidine HCl (Catapres-Tts2 0.2 Mg/24 Hr) 1 patch TD Q7D@1000 [facility] Last Admin: 03/25/17 19:01 Dose: 1 patch Diltiazem HCl (Cardizem) 60 mg PO BID [facility] Last Admin: 03/25/17 18:21 Dose: Not Given Divalproex Sodium (Depakote Sprinkles) 250 mg PO Q8 [facility] PRN Reason: Protocol Last Admin: 03/26/17 06:06 Dose: Not Given Docusate Sodium (Colace Liquid) 200 mg PO HS PRN PRN Reason: Constipation Doxycycline Hyclate (Doryx) 100 mg PO Q12 [facility] PRN Reason: Protocol Stop: 04/01/17 22:01 Last Admin: 03/25/17 22:38 Dose: Not Given Famotidine (Pepcid) 40 mg PO HS [facility] Last Admin: 03/25/17 22:39 Dose: Not Given Meropenem 500 mg/ Sodium (Chloride) 100 mls @ 100 mls/hr IVPB Q12 [facility] PRN Reason: Protocol Last Admin: 03/25/17 22:38 Dose: 100 mls/hr Dextrose/Sodium Chloride (Dextrose 5%/0.33% Ns 1000 Ml) 1,000 mls @ 125 mls/hr IV .Q8H [facility] Last Admin: 03/26/17 03:39 Dose: 125 mls/hr Non-Formulary Medication (Amino Acids/Protein Hydrolys [Pro-Stat Profile Liquid Packet]) 30 ml PO DAILY [facility] Last Admin: 03/25/17 09:19 Dose: Not Given Non-Formulary Medication (Folic Acid/Vit B Complex And C [Chery-Cady Tablet]) 1 tab PO DAILY [facility] Last Admin: 03/25/17 09:20 Dose: Not Given Sennosides (Senokot Tab) 17.2 mg PO DAILY [facility] Last Admin: 03/25/17 09:21 Dose: Not Given - Labs Labs: 03/25/17 07:00 03/25/17 07:00 PT 11.7 SECONDS (9.4-12.5) 03/21/17 21:20 INR 1.03 (0.93-1.08) 03/21/17 21:20 APTT 28.8 Seconds (25.1-36.5) 03/21/17 21:20 - Constitutional Appears: Chronically Ill - Head Exam Head Exam: NORMAL INSPECTION - ENT Exam ENT Exam: Mucous Membranes Moist - Neck Exam Neck Exam: absent: Meningismus - Respiratory Exam Respiratory Exam: Decreased Breath Sounds - Cardiovascular Exam Cardiovascular Exam: +S1, +S2 - GI/Abdominal Exam GI & Abdominal Exam: Soft. absent: Tenderness Assessment and Plan - Assessment and Plan (Free Text) Plan: Assessment severe sepsis with MILLER on CKD due to HCAP history of UTI history of sacral ulcers HTN seizure disorder history of lumbar fracture dementia Plan on Merrem and Doxycycline day 5 - can switch to PO Levaquin to complete another 3 days from today
[2017-03-26] MEDS: Non Formulary Medication (Folic Acid/Vit B Complex And C [Rena-Vite Tablet] 1 TAB) PO SCH (17:13)
--- NOTE | 2017-03-26 22:02 | CP.PCM.PN ---
Subjective - Date & Time of Evaluation Date of Evaluation: 03/26/17 Time of Evaluation: 11:00 - Subjective Subjective: Patient still too lethargic to take PO intake; NG tube placed, feeds to be started; Objective - Vital Signs/Intake and Output Vital Signs (last 24 hours): Temp Pulse Resp BP Pulse Ox 97.5 F L 76 20 146/60 99 03/26/17 16:00 03/26/17 20:04 03/26/17 16:00 03/26/17 20:04 03/26/17 09:08 Intake and Output: 03/26/17 03/27/17 18:59 06:59 Intake Total 0 Output Total 425 Balance -425 - Medications Medications: Current Medications Acetaminophen (Tylenol 325mg Tab) 325 mg PO Q4 [facility] Last Admin: 03/26/17 21:29 Dose: Not Given Albuterol/Ipratropium (Duoneb 3 Mg/0.5 Mg (3 Ml) Ud) 3 ml IH [id number] [facility] Last Admin: 03/26/17 13:20 Dose: 3 ml Armodafinil (Nuvigil 150 Mg Tab) 150 mg PO DAILY [facility] Clonidine HCl (Catapres-Tts2 0.2 Mg/24 Hr) 1 patch TD Q7D@1000 [facility] Last Admin: 03/25/17 19:01 Dose: 1 patch Diltiazem HCl (Cardizem) 60 mg PO BID [facility] Last Admin: 03/26/17 20:04 Dose: Not Given Divalproex Sodium (Depakote Sprinkles) 250 mg PO Q8 [facility] PRN Reason: Protocol Last Admin: 03/26/17 17:12 Dose: Not Given Docusate Sodium (Colace Liquid) 200 mg PO HS PRN PRN Reason: Constipation Famotidine (Pepcid) 40 mg PO HS [facility] Last Admin: 03/25/17 22:39 Dose: Not Given Meropenem 500 mg/ Sodium (Chloride) 100 mls @ 100 mls/hr IVPB Q12 [facility] PRN Reason: Protocol Last Admin: 03/26/17 12:32 Dose: 100 mls/hr Dextrose/Sodium Chloride (Dextrose 5%/0.33% Ns 1000 Ml) 1,000 mls @ 125 mls/hr IV .Q8H [facility] Last Admin: 03/26/17 20:41 Dose: 125 mls/hr Doxycycline Hyclate 100 mg/ (Sodium Chloride) 100 mls @ 100 mls/hr IVPB Q12 [facility] PRN Reason: Protocol Stop: 04/01/17 22:01 Non-Formulary Medication (Amino Acids/Protein Hydrolys [Pro-Stat Profile Liquid Packet]) 30 ml PO DAILY [facility] Last Admin: 03/26/17 12:29 Dose: Not Given Non-Formulary Medication (Folic Acid/Vit B Complex And C [Chery-Cady Tablet]) 1 tab PO DAILY [facility] Last Admin: 03/26/17 17:13 Dose: Not Given Sennosides (Senokot Tab) 17.2 mg PO DAILY [facility] Last Admin: 03/26/17 12:33 Dose: Not Given - Labs Labs: 03/26/17 11:30 03/26/17 11:30 PT 11.7 SECONDS (9.4-12.5) 03/21/17 21:20 INR 1.03 (0.93-1.08) 03/21/17 21:20 APTT 28.8 Seconds (25.1-36.5) 03/21/17 21:20 - Constitutional Appears: Non-toxic, No Acute Distress - Eye Exam Eye Exam: absent: Scleral icterus - Respiratory Exam Respiratory Exam: Clear to Ausculation Bilateral. absent: Respiratory Distress - Cardiovascular Exam Cardiovascular Exam: RRR, +S1. absent: +S2 - GI/Abdominal Exam GI & Abdominal Exam: Soft. absent: Distended, Tenderness - Extremities Exam Additional comments: no leg edema; - Neurological Exam Neurological Exam: Alert, Awake - Psychiatric Exam Psychiatric exam: Agitated - Skin Skin Exam: Warm. absent: Cyanosis Assessment and Plan (1) Hypernatremia Assessment & Plan: Improved with IVF; will change IVF to D5-1/2NS at 80 cc/hr; starting feeds should help also; Status: Acute (2) MILLER (acute kidney injury) Assessment & Plan: Continues to improve with IVF, being changed as above; Status: Acute (3) Hypercalcemia Assessment & Plan: PTH appropriately suppressed for elevated Ca level; Ca level decreasing with IVF ; continue to hold vit D supplementation; Status: Acute (4) Sepsis Assessment & Plan: On meropenem and doxycycline; can consider increasing meropenem dose as renal function improves; Status: Acute
--- NOTE | 2017-03-27 00:19 | PN ---
DATE: 03/26/2017 PULMONARY PROGRESS NOTE REFERRING PHYSICIAN: Dr. Prakash. SUBJECTIVE: She is lying in the bed, head at 45 degrees. Awake, alert. Mild cough. No hemoptysis. No hematemesis. No hematuria or diarrhea reported. OBJECTIVE: GENERAL: In no acute distress. VITAL SIGNS: Temp is 98, heart rate is 74, respiratory rate is 20, blood pressure 145/68, pulse ox 99% on 2 L nasal cannula. HEENT: Dry mucous membrane. NECK: Supple. No JVD. LUNGS: Have few crackles on the left base with scattered rhonchi overall. HEART: S1 and S2. ABDOMEN: Soft and nontender. No organomegaly. EXTREMITIES: No edema. NEUROLOGIC: Awake, alert. Does follow simple command, but confused. MEDICATIONS: She is on daily, Cardizem 60 mg twice a day, clonidine patch q. 7 days, Colace 100 mg at bedtime, Depakote 250 mg q. 8 hour, getting IV fluid D5 125 mL per hour, doxycycline 100 mg twice a day, DuoNeb q. 6 hour, multivitamins daily, meropenem 1 g q. 12 hour, Pepcid 40 mg daily, Senokot p.r.n., Tylenol p.r.n. LABORATORY DATA: Showed hemoglobin 9.8, hematocrit 29.6, WBC 7.6, platelet count is 221. Sodium 142, potassium 3.5, chloride 116, bicarbonate 22, BUN is 34, creatinine 1.0, glucose 132, calcium is 10.2, phosphorus 3.2, magnesium 1.8, AST 19, ALT 19, alk phos is 46, albumin 2.0. Microbiology: Urine has E. coli. IMPRESSION AND PLAN: Healthcare associated pneumonia, urinary tract infection, hypertension, seizure disorder, gastroesophageal reflux disease, anemia, dementia, decubiti ulcer, renal insufficiency, dehydration, and poor p.o. intake. Continue bronchodilator, keep head at 45 degrees, antibiotics. May need small dose of daytime stimulants. We will watch cardiopulmonary status closely. Thank you and we will follow with you. Rosie Gutierres MD [facility] # [id number]
--- NOTE | 2017-03-27 02:56 | PN ---
DATE: SUBJECTIVE: The patient is an 87-year-old female. The patient was seen and examined on the bedside, looking comfortable, awake, alert, but confused. No nausea, vomiting, or diarrhea. No hematuria or hematochezia. No swelling of the legs. No chest pain. No palpitation. No headache. No dizziness. Patient is a very poor historian. OBJECTIVE: VITAL SIGNS: Temperature 97.8, pulse 74, respiratory rate 20, blood pressure 145/68, pulse oximetry 99. HEENT: Head: Normocephalic, atraumatic. Eyes: PERRLA. Extraocular muscles intact. Conjunctivae clear. Nose patent. Mucous membranes are moist. NECK: Supple. No carotid bruits, JVD or thyromegaly. CHEST: Bilaterally symmetrical. HEART: S1, S2 positive. LUNGS: Clear to auscultation. ABDOMEN: Soft. Bowel sounds present. No organomegaly. EXTREMITIES: No fractures, no edema, no cyanosis. MEDICATIONS: Tylenol, DuoNeb, clonidine, Cardizem, Depakote, Colace, doxycycline, Pepcid, meropenem. LABORATORY DATA: White blood cells 9.8, hemoglobin 10.2, hematocrit 31.9, platelets 266. Sodium 153, potassium 3.7. BUN 43, creatinine 1.5. Glucose 55. ASSESSMENT AND PLAN: Ms. Maria Elena Ng is an 87-year-old female with anemia, hypernatremia, renal insufficiency, hypoglycemia, has severe sepsis with acute kidney injury on chronic kidney disease due to healthcare-associated pneumonia, history of urinary tract infection, history of sacral decubitus ulcer - healing well, hypertension, seizure, history of lumbar fracture, dementia. On meropenem, doxycycline day #5. Transfer to [facility] to complete another 3 days of treatment. Seen by Dr. 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 hypercalcemia, acute kidney injury - improving with IV fluids. Continue the above treatment. Patient has severe dementia, chronic obstructive pulmonary disease, history of severe anemia, status post blood transfusion, gastroesophageal reflux disease. Dr. Gutierres discontinued the trazodone because she was too much sleepy. Continue IV fluids. Gastric prophylaxis. We will follow. Bushra Prakash MD [facility]
[2017-03-27] MEDS ORDERED: Dextrose 5%/0.45% NS 1,000 ML IV SCH (03:30)
[2017-03-27] MEDS: Divalproex 125 mg EC Sprinkle Cap PO SCH ×2 (06:07→13:23)
[2017-03-27 06:53] LABS: MEAN CELL VOLUME 99.7 fl (80.0-105.0); MEAN CORPUSCULAR HEMOGLOBIN 32.8 pg (25.0-35.0); MEAN CORPUSCULAR HGB CONC 32.9 g/dl (31.0-37.0); MEAN PLATELET VOLUME 9.1 fl (7.0-11.0); RBC 3.05 10^6/uL (3.5-6.1); RED CELL DISTRIBUTION WIDTH 16.1 % (11.5-14.5); WHITE BLOOD COUNT 6.2 10^3/ul (4.5-11.0)
[2017-03-27 07:19] LABS: BLOOD UREA NITROGEN 30 mg/dL (7-21); CALCIUM 10.3 mg/dL (8.4-10.5); GFR AFRICAN-AMERICAN > 60; GFR NON-AFRICAN AMERICAN 59
[2017-03-27] MEDS: Albuterol-Ipratrop 3 mg / 0.5 (3 ml) UD IH SCH ×2 (07:29→13:09)
--- NOTE | 2017-03-27 07:39 | CP.PCM.PCO ---
Physician Communication Note - Physician Communication Note Physician Communication Note: right hip dressing changed, cont changes/packing BID as ordered
[2017-03-27] MEDS ORDERED: levoFLOXacin 500 MG TAB PO ONE (10:00)
[2017-03-27] MEDS ORDERED: Potassium Chloride 20 MEQ in Dextrose 5%/0.45% NS 1,000 ML IV SCH (10:05)
[2017-03-27] MEDS: AMINO ACIDS PO SCH (10:11)
[2017-03-27] MEDS: [UNRECOGNIZED DRUG - OTHER] PO SCH (10:11)
[2017-03-27] MEDS: Non Formulary Medication (Folic Acid/Vit B Complex And C [Rena-Vite Tablet] 1 TAB) PO SCH (10:11)
[2017-03-27] MEDS: Meropenem 500 MG in Sodium Chloride 0.9% 100 ML IVPB SCH (10:11)
[2017-03-27] MEDS: PROTEIN HYDROLYS PO SCH (10:11)
--- NOTE | 2017-03-27 10:58 | CT ---
PROCEDURE: CT HEAD WITHOUT CONTRAST. HISTORY: increased lethargy COMPARISON: 09/10/2016 TECHNIQUE: Axial computed tomography images were obtained through the head/brain without intravenous contrast. Radiation dose: Total exam DLP = 796 mGy-cm. This CT exam was performed using one or more of the following dose reduction techniques: Automated exposure control, adjustment of the mA and/or kV according to patient size, and/or use of iterative reconstruction technique. FINDINGS: HEMORRHAGE: No intracranial hemorrhage. BRAIN: No mass effect or edema. Severe chronic microvascular changes are seen in the periventricular white matter and basal ganglia. There is moderate atrophy. VENTRICLES: Unremarkable. No hydrocephalus. CALVARIUM: Unremarkable. PARANASAL SINUSES: Unremarkable as visualized. No significant inflammatory changes. MASTOID AIR CELLS: Unremarkable as visualized. No inflammatory changes. OTHER FINDINGS: None. IMPRESSION: No acute intracranial findings.
--- NOTE | 2017-03-27 16:12 | CP.PCM.PN ---
Subjective - Date & Time of Evaluation Date of Evaluation: 03/27/17 Time of Evaluation: 10:35 - Subjective Subjective: Patient is somewhat lethargic, no fevers. Objective - Vital Signs/Intake and Output Vital Signs (last 24 hours): Temp Pulse Resp BP Pulse Ox 97.2 F L 64 21 159/68 H 98 03/27/17 08:10 03/27/17 08:10 03/27/17 08:10 03/27/17 08:10 03/27/17 08:10 Intake and Output: 03/27/17 03/27/17 06:59 18:59 Intake Total 180 120 Output Total 200 400 Balance -20 -280 - Medications Medications: Current Medications Acetaminophen (Tylenol 325mg Tab) 325 mg PO Q4 [facility] Last Admin: 03/27/17 04:30 Dose: Not Given Albuterol/Ipratropium (Duoneb 3 Mg/0.5 Mg (3 Ml) Ud) 3 ml IH [id number] [facility] Last Admin: 03/27/17 07:29 Dose: 3 ml Armodafinil (Nuvigil 150 Mg Tab) 150 mg PO DAILY [facility] Clonidine HCl (Catapres-Tts2 0.2 Mg/24 Hr) 1 patch TD Q7D@1000 [facility] Last Admin: 03/25/17 19:01 Dose: 1 patch Diltiazem HCl (Cardizem) 60 mg PO BID [facility] Last Admin: 03/26/17 20:04 Dose: Not Given Divalproex Sodium (Depakote Sprinkles) 250 mg PO Q8 [facility] PRN Reason: Protocol Last Admin: 03/27/17 06:07 Dose: Not Given Docusate Sodium (Colace Liquid) 200 mg PO HS PRN PRN Reason: Constipation Famotidine (Pepcid) 40 mg PO HS [facility] Last Admin: 03/26/17 22:10 Dose: Not Given Meropenem 500 mg/ Sodium (Chloride) 100 mls @ 100 mls/hr IVPB Q12 [facility] PRN Reason: Protocol Last Admin: 03/26/17 22:11 Dose: 100 mls/hr Doxycycline Hyclate 100 mg/ (Sodium Chloride) 100 mls @ 100 mls/hr IVPB Q12 [facility] PRN Reason: Protocol Stop: 04/01/17 22:01 Last Admin: 03/26/17 23:15 Dose: 100 mls/hr Dextrose/Sodium Chloride (Dextrose 5%/0.45% Ns 1000 Ml) 1,000 mls @ 80 mls/hr IV .[id number] [facility] Last Admin: 03/27/17 04:18 Dose: 80 mls/hr Potassium Chloride (Potassium Chloride 10 Meq/100 Ml) 10 meq in 100 mls @ 50 mls/hr IVPB Q2H [facility] Stop: 03/27/17 12:14 Non-Formulary Medication (Amino Acids/Protein Hydrolys [Pro-Stat Profile Liquid Packet]) 30 ml PO DAILY [facility] Last Admin: 03/26/17 12:29 Dose: Not Given Non-Formulary Medication (Folic Acid/Vit B Complex And C [Chery-Cady Tablet]) 1 tab PO DAILY [facility] Last Admin: 03/26/17 17:13 Dose: Not Given Sennosides (Senokot Tab) 17.2 mg PO DAILY [facility] Last Admin: 03/26/17 12:33 Dose: Not Given - Labs Labs: 03/27/17 06:15 03/27/17 06:15 PT 11.7 SECONDS (9.4-12.5) 03/21/17 21:20 INR 1.03 (0.93-1.08) 03/21/17 21:20 APTT 28.8 Seconds (25.1-36.5) 03/21/17 21:20 - Constitutional Appears: Chronically Ill - Head Exam Head Exam: NORMAL INSPECTION - Neck Exam Neck Exam: absent: Meningismus - Respiratory Exam Respiratory Exam: Decreased Breath Sounds - Cardiovascular Exam Cardiovascular Exam: +S1, +S2 - GI/Abdominal Exam GI & Abdominal Exam: Soft. absent: Tenderness Assessment and Plan - Assessment and Plan (Free Text) Plan: Assessment severe sepsis with MILLER on CKD due to HCAP history of UTI history of sacral ulcers HTN seizure disorder history of lumbar fracture dementia Plan on Merrem and Doxycycline day 6 - can switch to PO Levaquin to complete another 2 days from today overall prognosis is poor
--- NOTE | 2017-03-27 16:46 | CP.PCM.CON ---
History of Present Illness - History of Present Illness History of Present Illness: Seen and examined at the bedside earlier today, chart review. Request for GI consult is for anemia/eval for PEG tube. HPI: This is a 87-year-old female with a past medical history of dementia, hypertension, GERD, and anemia came from seen in [facility] for shortness of breath and chest congestion. The patient is a poor historian, unable to get history, past medical history obtained from patient's medical chart and health care staff. The patient is reported to be confused but more awake today. Reported to have poor appetite. Underwent a swallowing evaluation with speech therapist' s and reported to have oropharyngeal dysphagia recommend slow introduction of food with assistance with pured thick liquids. No reports of nausea, vomiting , or abdominal pain. This patient lowest HGB was 7.2 s/p 2 unit of PRBC. No reports of any overt GI bleed. In review of chart patient has POLST document stating "no artificial nutrition". PMH: Dementia, HTN, GERD, Anemia, UTI, sacaral decubitus ulcer PSH: unknown Allergies: PCN MEDS: reviewed as per MAR Social HX: no history of tobacco, ETOH, drugs Family HX: unknown ROS: unable to review 12 point system w/ patient, see HPI Past Patient History - Infectious Disease Hx of Infectious Diseases: None - Tetanus Immunizations Tetanus Immunization: Unknown - Past Social History Smoking Status: unknown - CARDIAC Hx Hypertension: Yes - PULMONARY Hx Pneumonia: Yes - INTEGUMENTARY Other/Comment: sacral decubitus x2 - MUSCULOSKELETAL/RHEUMATOLOGICAL Hx Falls: No - GASTROINTESTINAL Hx Gastroesophageal Reflux: Yes - GENITOURINARY/GYNECOLOGICAL Hx Urinary Tract Infection: Yes - PSYCHIATRIC Hx Substance Use: No Meds Home Medications: Home Medication List Medication Instructions Recorded Confirmed Type Armodafinil 150 mg Tab [Nuvigil 150 mg PO DAILY tab 03/27/17 Rx 150 mg Tab] Famotidine [Pepcid] 40 mg PO HS tab 03/27/17 Rx cloNIDine 0.2 mg/24 hr 1 patch TD Q7D@1000 patch 03/27/17 Rx [catapres-TTS2 0.2 mg/24 hr] levoFLOXacin [Levaquin] 500 mg PO DAILY tab 03/27/17 Rx Allergies/Adverse Reactions: Allergies Allergy/AdvReac Type Severity Reaction Status Date / Time Penicillins Allergy RASH Verified 09/10/16 18:59 - Medications Medications: Current Medications Acetaminophen (Tylenol 325mg Tab) 325 mg PO Q6 PRN PRN Reason: Fever >100.4 F Albuterol/Ipratropium (Duoneb 3 Mg/0.5 Mg (3 Ml) Ud) 3 ml IH [id number] [facility] Last Admin: 03/27/17 07:29 Dose: 3 ml Armodafinil (Nuvigil 150 Mg Tab) 150 mg PO DAILY [facility] Last Admin: 03/27/17 11:32 Dose: Not Given Clonidine HCl (Catapres-Tts2 0.2 Mg/24 Hr) 1 patch TD Q7D@1000 [facility] Last Admin: 03/25/17 19:01 Dose: 1 patch Diltiazem HCl (Cardizem) 60 mg PO BID [facility] Last Admin: 03/27/17 10:09 Dose: 60 mg Divalproex Sodium (Depakote Sprinkles) 250 mg PO Q8 [facility] PRN Reason: Protocol Last Admin: 03/27/17 06:07 Dose: Not Given Docusate Sodium (Colace Liquid) 200 mg PO HS PRN PRN Reason: Constipation Famotidine (Pepcid) 40 mg PO HS [facility] Last Admin: 03/26/17 22:10 Dose: Not Given Meropenem 500 mg/ Sodium (Chloride) 100 mls @ 100 mls/hr IVPB Q12 [facility] PRN Reason: Protocol Last Admin: 03/27/17 10:11 Dose: 100 mls/hr Doxycycline Hyclate 100 mg/ (Sodium Chloride) 100 mls @ 100 mls/hr IVPB Q12 [facility] PRN Reason: Protocol Stop: 04/01/17 22:01 Last Admin: 03/26/17 23:15 Dose: 100 mls/hr Potassium Chloride 20 meq/ (Dextrose/Sodium Chloride) 1,010 mls @ 80 mls/hr IV .[id number] [facility] Non-Formulary Medication (Amino Acids/Protein Hydrolys [Pro-Stat Profile Liquid Packet]) 30 ml PO DAILY [facility] Last Admin: 03/27/17 10:11 Dose: Not Given Non-Formulary Medication (Folic Acid/Vit B Complex And C [Chery-Cady Tablet]) 1 tab PO DAILY [facility] Last Admin: 03/27/17 10:11 Dose: Not Given Sennosides (Senokot Tab) 17.2 mg PO DAILY [facility] Last Admin: 03/27/17 10:09 Dose: 17.2 mg Physical Exam - Constitutional Appears: No Acute Distress, Confused - Eye Exam Eye Exam: Normal appearance. absent: Scleral icterus - ENT Exam ENT Exam: Mucous Membranes Moist - Neck Exam Neck exam: Positive for: Normal Inspection - Respiratory Exam Respiratory Exam: Decreased Breath Sounds, NORMAL BREATHING PATTERN. absent: Respiratory Distress - Cardiovascular Exam Cardiovascular Exam: +S1, +S2 - GI/Abdominal Exam GI & Abdominal Exam: Normal Bowel Sounds, Soft. absent: Guarding, Organomegaly , Rebound, Tenderness - Extremities Exam Extremities exam: Positive for: pedal pulses present. Negative for: calf tenderness, pedal edema - Neurological Exam Neurological exam: Alert, Altered (confused) - Skin Skin Exam: Dry, Warm Results - Vital Signs Recent Vital Signs: Last Vital Signs Temp 97.2 F L 03/27/17 08:10 Pulse 66 03/27/17 10:09 Resp 21 03/27/17 08:10 BP 160/70 H 03/27/17 10:09 Pulse Ox 98 03/27/17 08:10 - Labs Result Diagrams: 03/27/17 06:15 03/27/17 06:15 Labs: Laboratory Results - last 24 hr 03/25/17 03/27/17 03/27/17 07:00 06:15 06:15 WBC 6.2 RBC 3.05 L Hgb 10.0 L Hct 30.4 L MCV 99.7 MCH 32.8 MCHC 32.9 RDW 16.1 H Plt Count 244 MPV 9.1 Sodium 142 Potassium 3.3 L Chloride 113 H Carbon Dioxide 22 Anion Gap 10 BUN 30 H Creatinine 0.9 Est GFR ( Amer) > 60 Est GFR (Non-Af Amer) 59 Random Glucose 92 Calcium 10.3 Calcium (PTH Intact) 9.9 PTH w/Ion &Tot Calcium 8 L Assessment & Plan - Assessment and Plan (Free Text) Assessment: ASSESSMENT: Anemia Poor Appetite GERD HTN Improving renal failure UTI, (+) Ecoli Sacral Decubitus PLAN: continue GI propyglaxsis on IV antibiotics monitor H/H on Puree diet consider calorie count spoke to Gwen PRINCE requesting PEG tube eval, made aware that on POLST, no artificial nutrition requested, Gwen PRINCE will contact the POA regarding this. consider ct scan abdomen and pelvis with only oral contrast if tolerate. Thank you for this consult and for allowing us to participate in your patient care, further recommendation based upon clincial course. Seen and discussed w/ Dr. Christopher. Addendum: spoke to speech therapist at bedside, who was also feeding the patient , tolerated a good amount of puree diet. 60 -75%. Patient needs to be fed, patient takes time to eat but observed a good appetite, would recommend to do calorie count at this time.
[2017-03-27 17:01] VITALS: BP 160/95; PULSE 74; RESP 22; TEMP 97.6; O2SAT 96
--- NOTE | 2017-03-27 23:05 | CP.PCM.PN ---
Objective - Vital Signs/Intake and Output Vital Signs (last 24 hours): Temp Pulse Resp BP Pulse Ox 97.6 F 74 22 160/95 H 96 03/27/17 16:59 03/27/17 16:59 03/27/17 16:59 03/27/17 16:59 03/27/17 16:59 Intake and Output: 03/27/17 03/28/17 18:59 06:59 Intake Total 120 Output Total 400 Balance -280 - Labs Labs: 03/27/17 06:15 03/27/17 06:15 PT 11.7 SECONDS (9.4-12.5) 03/21/17 21:20 INR 1.03 (0.93-1.08) 03/21/17 21:20 APTT 28.8 Seconds (25.1-36.5) 03/21/17 21:20 Assessment and Plan (1) Hypernatremia Status: Acute (2) MILLER (acute kidney injury) Status: Acute (3) Hypercalcemia Status: Acute (4) Sepsis Status: Acute
--- NOTE | 2017-03-28 00:58 | PN ---
DATE: 03/27/2017 SUBJECTIVE: She is lying in the bed at 45 degrees; today much more awake, alert, but confused; still have oropharyngeal dysphagia, modified diet. No hemoptysis, no emesis, no hematuria, no diarrhea reported. PHYSICAL EXAMINATION GENERAL: In no acute distress. VITAL SIGNS: Temperature is 98, heart rate 66, respiratory rate is 22, blood pressure 160/70, pulse ox 96% on 2 liters nasal cannula. HEENT: Moist mucous membranes. No ulcer or thrush noted. NECK: Supple. No JVD. LUNGS: Has a few scattered rhonchi. HEART: S1 and S2. ABDOMEN: Soft, nontender. No organomegaly. EXTREMITIES: There is no edema. NEUROLOGIC: Awake, alert, does not follow any commands. MEDICATIONS: Reviewed and noted. No new change in medication reported since yesterday. LABORATORY DATA: Reviewed. Hemoglobin 10.0, hematocrit 30.4, WBC 6.2, platelet count is 244. Sodium 142, potassium 3.3, chloride 113, bicarbonate 22, BUN 30, creatinine 0.9, glucose 92, calcium is 10.3, AST 19, ALT 19, alkaline phosphatase is 46. Albumin is 2.0. Microbiology: Urine has E. coli. CAT scan of the head was done today shows no acute finding. IMPRESSION AND PLAN: Healthcare-associated pneumonia, urinary tract infection, hypertension, seizure disorder, gastroesophageal reflux disease, anemia, dementia, decubitus ulcer, renal insufficiency which is improving, oropharyngeal dysphagia. Case discussed with the nurse practitioner at the floor who spoke to family and next of kin for possible G-tube placement because of high risk of respiratory failure second to aspiration and also risk of dehydration. Apparently, family refused the G-tube, so the patient is being sent back to snf for continue p.o. diet, aspiration precaution and supportive care. Thank you and we will follow with you. Rosie Gutierres MD
[2017-03-28] MEDS ORDERED: levoFLOXacin 500 MG TAB PO ONE (10:00)
== END 2017-03-27 18:53 | DRG 871 ==
LOC: ED 20:50 → ERH 22:42 → 3RNO 03-22 00:38
PROVIDERS: ADMIT Internal Medicine; ATTEND Internal Medicine
PROC: 30233N1 Transfusion of Nonautologous Red Blood Cells into Peripheral Vein, Percutaneous Approach (ICD-10-PCS; principal; 2017-03-23)
DX: A41.9 Sepsis, unspecified organism (principal); R65.21 Severe sepsis with septic shock; I50.23 Acute on chronic systolic (congestive) heart failure; L89.154 Pressure ulcer of sacral region, stage 4; J18.9 Pneumonia, unspecified organism; N17.9 Acute kidney failure, unspecified; E87.0 Hyperosmolality and hypernatremia; L89.314 Pressure ulcer of right buttock, stage 4; E87.8 Other disorders of electrolyte and fluid balance, not elsewhere classified; E83.52 Hypercalcemia; R13.12 Dysphagia, oropharyngeal phase; I13.0 Hypertensive heart and chronic kidney disease with heart failure and stage 1 through stage 4 chronic kidney disease, or unspecified chronic kidney disease; J44.0 Chronic obstructive pulmonary disease with (acute) lower respiratory infection; N39.0 Urinary tract infection, site not specified; D63.8 Anemia in other chronic diseases classified elsewhere; E86.0 Dehydration; B96.89 Other specified bacterial agents as the cause of diseases classified elsewhere; E16.2 Hypoglycemia, unspecified; F02.80 Dementia in other diseases classified elsewhere, unspecified severity, without behavioral disturbance, psychotic disturbance, mood disturbance, and anxiety; G30.9 Alzheimer's disease, unspecified; G40.909 Epilepsy, unspecified, not intractable, without status epilepticus; K21.9 Gastro-esophageal reflux disease without esophagitis; N18.9 Chronic kidney disease, unspecified; Y95 Nosocomial condition; Z87.01 Personal history of pneumonia (recurrent); Z87.440 Personal history of urinary (tract) infections; Z87.81 Personal history of (healed) traumatic fracture; Z88.0 Allergy status to penicillin

== ENCOUNTER 2017-04-07 10:32 | Inpatient (IN) | payer MEDICARE ==
[2017-04-07 10:37] VITALS: BMI 17.2
[2017-04-07] MEDS ORDERED: Albuterol-Ipratrop 3 mg / 0.5 (3 ml) UD ONE (10:41)
[2017-04-07 11:06] LABS: BASO # 0.01 K/mm3 (0.0-2.0); BASO % 0.1 % (0.0-3.0); GRAN # 11.69 (1.4-6.5); GRAN % 90.3 % (50.0-68.0); HEMOGLOBIN 10.9 g/dL (12.0-16.0); LYMPH # 0.8 (1.2-3.4); LYMPH % 5.9 % (22.0-35.0); MEAN CELL VOLUME 104.5 fl (80.0-105.0); MEAN CORPUSCULAR HEMOGLOBIN 32.3 pg (25.0-35.0); MEAN PLATELET VOLUME 9.6 fl (7.0-11.0); MONO # 0.5 (0.1-0.6); MONO % 3.7 % (1.0-6.0); PLATELET COUNT 286 10^3/uL (120.0-450.0); RBC 3.37 10^6/uL (3.5-6.1); RED CELL DISTRIBUTION WIDTH 15.5 % (11.5-14.5); WHITE BLOOD COUNT 12.9 10^3/ul (4.5-11.0)
[2017-04-07 11:15] LABS: ALB/GLOB RATIO 0.8 (1.1-1.8); ALBUMIN 2.7 g/dL (3.0-4.8); ALT/SGPT 25 U/L (7-56); AST/SGOT 19 U/L (14-36); BLOOD UREA NITROGEN 34 mg/dL (7-21); CALCIUM 11.8 mg/dL (8.4-10.5); GFR AFRICAN-AMERICAN 47; GFR NON-AFRICAN AMERICAN 39
[2017-04-07 11:16] LABS: ARTERIAL BLOOD GAS HCO3 34.2 mmol/L (21-28); ARTERIAL BLOOD GAS O2 SAT 93.9 % (95-98); ARTERIAL BLOOD GAS PCO2 54 mm/Hg (35-45); ARTERIAL BLOOD GAS PH 7.41 (7.35-7.45); ARTERIAL BLOOD GAS TCO2 35.9 mmol.L (22-28)
[2017-04-07 11:18] LABS: INR 1.03 (0.93-1.08); PARTIAL THROMBOPLASTIN TIME 32.7 Seconds (25.1-36.5); PROTHROMBIN TIME 11.8 SECONDS (9.4-12.5)
[2017-04-07 11:26] LABS: B-TYPE NATRIURETIC PEPTIDE 3300 pg/mL (0-450); TROPONIN I < 0.01 ng/mL
--- NOTE | 2017-04-07 11:27 | ED PDOC ---
Arrival/HPI <Pascual Florentino - Last Filed: 04/07/17 14:07> <Timbo Muller - Last Filed: 04/07/17 18:41> - General Chief Complaint: Shortness Of Breath Time Seen by Provider: 04/07/17 10:33 - History of Present Illness Narrative History of Present Illness (Text): 04/07/17 11:21 Pt is an 87 yo F with PMH of dementia, HTN, GERD, UTI, and sacral decubitus ulcer presents to ED due to agonal breathing. Pt non-verbal on questioning. According to senior care documentation, patient oxygen saturation was in the 80s and is non-verbal at baseline. Pt was seen and examined at bedside. Pt eyes are open, non-verbal, and withdraws somewhat to pain. Of note, patient was recently admitted for pneumonia and sacral decubitus ulcer. HPI and ROS limited due to patient's current mental status. PMD: Pascual Kirk) Past Medical History - Provider Review Nursing Documentation Reviewed: Yes - Infectious Disease Hx of Infectious Diseases: None - Tetanus Immunization Tetanus Immunization: Unknown - Reproductive Menopause: Yes - Cardiac Hx Hypertension: Yes - Pulmonary Hx Pneumonia: Yes - Neurological Hx Alzheimer's Disease: Yes Hx Dementia: Yes Hx Seizures: Yes - Integumentary Other/Comment: sacral decubitus right side with packing and on the coccyx area and stage III on the right [place] - Musculoskeletal/Rheumatological Hx Falls: No - Gastrointestinal Hx Gastroesophageal Reflux: Yes - Genitourinary/Gynecological Hx Urinary Tract Infection: Yes - Psychiatric Hx Substance Use: No <Pascual Florentino - Last Filed: 04/07/17 14:07> Family/Social History - Physician Review Nursing Documentation Reviewed: Yes Family/Social History: Other (non-contributory) Smoking Status: Never Smoked Hx Alcohol Use: No Hx Substance Use: No <Pascual Florentino - Last Filed: 04/07/17 14:07> Allergies/Home Meds <Pascual Florentino - Last Filed: 04/07/17 14:07> <Timbo Muller - Last Filed: 04/07/17 18:41> Allergies/Adverse Reactions: Allergies Penicillins Allergy (Verified 04/07/17 10:37) RASH Home Medications: Home Meds Medication Instructions Recorded Confirmed Diltiazem HCl [Cardizem] 60 mg PO BID 09/10/16 04/07/17 Divalproex [Depakote Sprinkles] 250 mg PO Q8 09/10/16 04/07/17 Docusate [Colace LIQUID] 200 mg PO HS PRN 09/10/16 04/07/17 Sennosides [Senna] 17.2 mg PO HS 09/10/16 04/07/17 traZODone [Desyrel] 50 mg PO HS 09/10/16 04/07/17 Amino Acids/Protein Hydrolys 30 ml PO DAILY 03/21/17 04/07/17 [Pro-Stat Profile Liquid Packet] Folic Acid/Vit B Complex and C 1 tab PO DAILY 03/21/17 04/07/17 [Chery-Cady Tablet] Acetaminophen [Tylenol 325mg tab] 650 mg PO Q4 PRN 04/07/17 04/07/17 Albuterol/Ipratropium [Duoneb 3 3 ml NEB Q6 PRN 04/07/17 04/07/17 mg/0.5 mg (3 ml) UD] Doxycycline Hyclate [Vibramycin] 100 mg PO DAILY 04/07/17 04/07/17 Review of Systems - Physician Review All systems were reviewed & negative as marked: Yes - Review of Systems Systems not reviewed;Unavailable: Altered Mental Status <Pascual Florentino - Last Filed: 04/07/17 14:07> Physical Exam Vital Signs Reviewed: Yes Temperature: Afebrile Blood Pressure: Normal Pulse: Tachycardic Respiratory Rate: Tachypneic Appearance: Positive for: Uncomfortable Pain Distress: None Mental Status: Positive for: Confused Finger Stick Blood Glucose: 119 - Systems Exam Head: Present: Atraumatic, Normocephalic Pupils: Present: PERRL Conjunctiva: Present: Normal Mouth: Present: Moist Mucous Membranes Nose (Internal): Present: Normal Inspection Neck: Present: Normal Range of Motion. No: Meningeal Signs, Paraspinal Tenderness Respiratory/Chest: Present: Respiratory Distress, Decreased Breath Sounds, Rhonchi. No: Good Air Exchange, Wheezes, Rales Cardiovascular: Present: Normal S1, S2, Tachycardic. No: Murmurs, Rub, Gallop Abdomen: No: Tenderness, Distention, Peritoneal Signs, Rebound Back: Present: Decubitus Ulcer (sacral) Upper Extremity: Present: Edema (left arm) Lower Extremity: Present: Normal Inspection Neurological: No: GCS=15 (GCS 9) Skin: Present: Warm, Dry, Normal Color Psychiatric: Present: Other (Awake, not alert or oriented.) <Pascual Florentino - Last Filed: 04/07/17 14:07> Vital Signs Temp Pulse Resp BP Pulse Ox 04/07/17 16:00 78 04/07/17 15:05 78 22 134/61 100 04/07/17 14:35 98.2 F 82 21 125/64 04/07/17 13:38 82 22 125/64 100 04/07/17 11:30 100 H 04/07/17 11:29 103 H 20 140/78 100 04/07/17 10:40 84 L 04/07/17 10:33 97.1 F L 110 H 18 140/78 84 L Medical Decision Making <Pascual Florentino - Last Filed: 04/07/17 14:07> <Timbo Muller - Last Filed: 04/07/17 18:41> ED Course and Treatment: 04/07/17 11:28 Assessment: 87 yo F with history of dementia present to ED with respiratory distress. Plan: - DNR/DNI - Labs - Coags - BNP - Cardiac iso - Blood, urine cultures - CXR - EKG - UA - ABG shock 04/07/17 11:[address] Prakash, agrees with plan and accepts patient under her service. Requests Dr. Gutierres consultation. EKG showed sinus tachycardia with T-wave inversion on aVL and V2, present on prior EKG. Rate 98. 04/07/17 11:54 Spoke to patient's nephew, Arnulfo Winters, , updated him on status of patient. He states that he would like to be updated on any significant changes. He is currently in [place], but would fly back if necessary. CXR showed moderate vascular congestion. 04/07/17 13:04 Progress Note: Patient lying in bed with BIPAP on with O2 saturation at 100%. Patient appears to have less agonal breathing. Pt currently with normal heart rate and normotensive. Pt still not responding to verbal cues, eyes open, and withdraws to pain. 04/07/17 14:07 Impression: Respiratory distress, leukocytosis, AMS (Pascual Florentino) 04/07/17 12:16 Pt is a 87 year old female who presents to the Emergency department for respiratory distress. In agreement with resident note, which includes further HPI details. Patient was seen and evaluated with resident, came up with plan and treatment together. 04/07/17 12:40 Chest X-ray reviewed by radiologist, shows moderate vascular congestion. 04/07/17 18:36 Patient's history obtained from senior care. They report that patient's oxygen level dropped while at senior care. Patient has dementia cannot provide history. There is NO AGONAL BREATHING NOTED on initial exam although she is tachypneic and hypoxic. Rales noted on exam. Duoneb ordered. Patient's recent admission and baseline status reviewed with Dr. Carrion, her PMD , who presented to Emergency department and also evaluated patient. EKG reviewed, ? st changes noted. BNP elevated and cxr suggestive of possible pulmonary vascular congestion. Given this cannot exclude residual infiltrate from recent pneumonia admission and/or additional cardiac component of symptoms. Initial troponin unremarkable. Patient placed on Bipap and oxygenation improved to 99-100% she appears to be breathing more comfortably, is not agitated and opens eye spontaneously. Code states reviewed and confirmed with PMD. Patient's family member updated on patient's condition via phone. There is improvement in oxygenation and respiratory status, although symptoms persistent. (Timbo Muller) - Lab Interpretations Lab Results: 04/07/17 10:45 04/07/17 10:45 Lab Results 04/07/17 11:43: Urine Color Yellow, Urine Appearance Clear, Urine pH 6.5, Ur Specific [place] 1.015, Urine Protein Trace H, Urine Glucose (UA) Negative, Urine Ketones Negative, Urine Blood Trace-intact H, Urine Nitrate Negative, Urine Bilirubin Negative, Urine Urobilinogen 0.2, Ur Leukocyte Esterase Negative , Urine RBC 0 - 2, Urine WBC 0 - 2, Ur Epithelial Cells 0 - 2, Urine Bacteria Trace 04/07/17 11:09: POC Glucose (mg/dL) 119 H 04/07/17 11:00: pCO2 54 H, pO2 61.0 L, HCO3 34.2 H, ABG pH 7.41, ABG Total CO2 35.9 H, ABG O2 Saturation 93.9 L, ABG Base Excess 7.8 H, ABG Potassium 3.8, Glucose 124 H, Lactate 0.7, FiO2 100.0, Inspiratory BiPAP 12, Sodium 146.0, Chloride 114.0 H, Arterial Blood Potassium 3.8 04/07/17 10:45: Sodium 149 H, Potassium 4.1, Chloride 109 H, Carbon Dioxide 33, Anion Gap 12, BUN 34 H, Creatinine 1.3 H, Est GFR ( Amer) 47, Est GFR ( Non-Af Amer) 39, Random Glucose 131 H, Calcium 11.8 H, Total Bilirubin 0.4, AST 19, ALT 25, Alkaline Phosphatase 90, Lactate Dehydrogenase 396, Total Creatine Kinase < 20 L, Troponin I < 0.01 D, NT-Pro-B Natriuret Pep 3300 H, Total Protein 6.1, Albumin 2.7 L, Globulin 3.4, Albumin/Globulin Ratio 0.8 L 04/07/17 10:45: PT 11.8, INR 1.03, APTT 32.7 04/07/17 10:45: WBC 12.9 H D, RBC 3.37 L, Hgb 10.9 L, Hct 35.2 L, MCV 104.5 D, MCH 32.3, MCHC 31.0, RDW 15.5 H, Plt Count 286, MPV 9.6, Gran % 90.3 H, Lymph % (Auto) 5.9 L, [place] % (Auto) 3.7, Eos % (Auto) 0.0 L, Baso % (Auto) 0.1, Gran # 11.69 H, Lymph # (Auto) 0.8 L, [place]eman # (Auto) 0.5, Eos # (Auto) 0.0, Baso # (Auto ) 0.01, Neutrophils % (Manual) 88 H, Band Neutrophils % 3 H, Lymphocytes % ( Manual) 5 L, Atypical Lymphs % 2 H, Monocytes % (Manual) 2 - RAD Interpretation Radiology Orders: 04/07/17 10:38 CHEST PORTABLE [RAD] Stat - Medication Orders Current Medication Orders: Acetaminophen (Tylenol 325mg Tab) 650 mg PO Q4 PRN PRN Reason: Fever >100.4 F Albuterol/Ipratropium (Duoneb 3 Mg/0.5 Mg (3 Ml) Ud) 3 ml IH [id number] ROXANNA Clonidine HCl (Catapres-Tts2 0.2 Mg/24 Hr) 1 patch TD Q7D@1000 ROXANNA Diltiazem HCl (Cardizem) 60 mg PO BID ROXANNA Last Admin: 04/07/17 18:33 Dose: Divalproex Sodium (Depakote Sprinkles) 250 mg PO Q8 ROXANNA PRN Reason: Protocol Docusate Sodium (Colace Liquid) 200 mg PO HS PRN PRN Reason: Constipation Famotidine (Pepcid) 40 mg PO HS ROXANNA Clindamycin Phosphate 600 mg/ (Sodium Chloride) 54 mls @ 102 mls/hr IVPB Q8 ROXANNA PRN Reason: Protocol Sennosides (Senokot Tab) 17.2 mg PO HS ROXANNA Trazodone HCl (Desyrel) 50 mg PO HS ROXANNA Vitamin B Complex/Vit C/Folic Acid (Nephro-Cady) 1 tab PO DAILY ROXANNA Discontinued Medications Furosemide (Lasix) 20 mg IVP ONCE ONE Stop: 04/07/17 14:50 Last Admin: 04/07/17 15:05 Dose: 20 mg MAR Blood Pressure Document 04/07/17 15:05 (Rec: 04/07/17 15:07 [id number]) Blood Pressure Blood Pressure (100/60-150/90 mm Hg) 134/61 IVP Administration Document 04/07/17 15:05 (Rec: 04/07/17 15:07 [id number]) Charges for Administration # of IVP Administrations 1 Levofloxacin/Dextrose (Levaquin 500mg) 500 mg in 100 mls @ 100 mls/hr IVPB STAT STA PRN Reason: Protocol Stop: 04/07/17 12:49 Last Admin: 04/07/17 12:05 Dose: 100 mls/hr eMAR Start Stop Document 04/07/17 12:05 (Rec: 04/07/17 12:06 [id number]) Intravenous Solution Start Date 04/07/17 Start Time 12:06 - PA / BOOK PACKER / Resident Statement LILIA has reviewed & agrees with the documentation as recorded. LILIA has examined the patient and agrees with the treatment plan. <Timbo Muller - Last Filed: 04/07/17 18:41> Disposition/Present on Arrival - Present on Arrival History of DVT/PE: No History of Uncontrolled Diabetes: No Urinary Catheter: Yes (16f) History of Decub. Ulcer: Yes History Surgical Site Infection Following: None <Pascual Florentino - Last Filed: 04/07/17 14:07> - Present on Arrival Any Indicators Present on Arrival: Yes - Disposition Have Diagnosis and Disposition been Completed?: Yes Disposition Time: 11:52 Patient Plan: Admission, Telemetry <Timbo Muller - Last Filed: 04/07/17 18:41> - Disposition Diagnosis: History of pneumonia, Respiratory distress, Hypernatremia, CHF (congestive heart failure) Disposition: HOSPITALIZED Patient Problems: Current Active Problems Problem Status Onset History of pneumonia Acute Hypernatremia Acute Respiratory distress Acute Condition: SERIOUS
[2017-04-07 11:48] LABS: PH,URINE 6.5 (4.7-8.0); URINE BILIRUBIN NEGATIVE (NEGATIVE); URINE BLOOD TRACE-INTACT (NEGATIVE); URINE GLUCOSE (UA) NEGATIVE (NEGATIVE); URINE LEUKOCYTE ESTERASE NEGATIVE Leu/uL (NEGATIVE); URINE PROTEIN TRACE mg/dL (<30 mg/dL); URINE UROBILINOGEN 0.2 E.U./dL (<1 E.U./dL)
[2017-04-07] MEDS ORDERED: levoFLOXacin 500 mg in D5W 500 MG/100 ML BAG IVPB STA (11:50)
[2017-04-07 11:51] LABS: URINE APPEARANCE CLEAR (CLEAR); URINE COLOR YELLOW (YELLOW)
[2017-04-07 11:55] LABS: ATYPICAL LYMPHOCYTE 2 % (0.0-0.0); BAND 3 % (0-2); LYMPHOCYTE 5 % (22.0-35.0); MONOCYTE 2 % (1.0-6.0); NEUTROPHIL 88 % (50.0-70.0)
[2017-04-07 12:03] LABS: URINE BACTERIA TRACE (NEG); URINE EPITHELIAL CELLS 0 - 2 /hpf (0-5); URINE RBC 0 - 2 /hpf (0-2); URINE WBC 0 - 2 /hpf (0-6)
--- NOTE | 2017-04-07 12:37 | RAD ---
HISTORY: respiratory distrrees COMPARISON: 03/21/2017 FINDINGS: LUNGS: No active pulmonary disease. PLEURA: No significant pleural effusion identified, no pneumothorax apparent. CARDIOVASCULAR: Mild cardiomegaly. Moderate vascular congestion. OSSEOUS STRUCTURES: No significant abnormalities. VISUALIZED UPPER ABDOMEN: Normal. OTHER FINDINGS: None. IMPRESSION: Moderate vascular congestion
--- NOTE | 2017-04-07 16:40 | CARD ---
APPROVED REPORT EKG Measurement Heart [id number] <Conclusion> Sinus rhythm with premature atrial complexes Left axis deviation Nonspecific intraventricular block Cannot rule out Anteroseptal infarct, age undetermined Abnormal ECG
[2017-04-07] MEDS: Albuterol-Ipratrop 3 mg / 0.5 (3 ml) UD IH SCH (21:00)
[2017-04-07] MEDS: Divalproex 125 mg EC Sprinkle Cap PO SCH (22:12)
--- NOTE | 2017-04-08 01:28 | CON ---
DATE: 04/07/2017 PULMONARY CONSULTATION REFERRING PHYSICIAN: Dr. Prakash REASON FOR CONSULTATION: Respiratory failure, noninvasive ventilation. HISTORY OF PRESENT ILLNESS: This is an 87-year-old female who has a known history of oropharyngeal dysphagia, dementia, hypertension, GERD, sacral decubiti, recurrent UTI, brought in from detention because of respiratory failure, pulse ox in the 80s. Patient was placed on noninvasive ventilation. There is no hemoptysis, no hematemesis . No hematuria. No diarrhea reported. PAST MEDICAL HISTORY: Dementia, hypertension, GERD, history of recurrent UTI, sacral decubiti, malnutrition, severe oropharyngeal dysphagia, status post pneumonia, renal failure. ALLERGIES: NONE KNOWN. SOCIAL HISTORY: Nonsmoker, nondrinker. senior living resident. FAMILY HISTORY: No significant cardiopulmonary disease reported. MEDICATIONS: She is on Cardizem 60 mg twice a day, clonidine 0.2 mg patch weekly, Colace 200 mg at bedtime p.r.n., Depakote 250 mg q. 8 hours., trazodone 50 mg at bedtime, DuoNeb q. 6 hours, vitamin B complex 1 tablet daily, Pepcid 40 mg daily, Senokot at bedtime p.r.n., Tylenol p.r.n. basis. REVIEW OF SYSTEMS: There is no hemoptysis, no hematemesis. No hematuria. No diarrhea. No leg swelling reported. She is lethargic, mumbling, confused. PHYSICAL EXAMINATION: GENERAL: On noninvasive ventilation. VITAL SIGNS: Temperature is 98, heart rate 83, respiratory rate is 20, blood pressure 105/54, pulse ox 99% on BiPAP with supplemental oxygen. HEENT: Small oral cavity. Crowded airway. NECK: Supple. No JVD. LUNGS: Has scattered rhonchi. HEART: S1 and S2. ABDOMEN: Soft, nontender, nondistended. EXTREMITIES: No edema. NEUROLOGICAL: Awake, confused. LABORATORY DATA: Shows hemoglobin 10.9, hematocrit 35.2, WBC 12.9, platelet is 286. INR 1.03. PTT 33. Blood gases shows pH 7.41, pCO2 54, O2 61, which is on BiPAP. Sodium 149, potassium 4.1, chloride 109, bicarbonate 33, BUN 34, creatinine 1.3, glucose 131, calcium 11.8, AST 19, ALT 25, alk phos is 90. LDH 396. Troponin less than 0.01. Albumin is 2.7. Urinalysis shows wbc 0 to 2, rbc 0 to 2. Chest x-ray done in emergency room today shows a moderate vascular congestion. IMPRESSION AND PLAN: Respiratory failure, rule out aspiration pneumonia; history of hypertension; malnutrition; history of gastroesophageal reflux disease; recurrent urinary tract infection. Agree with Dr. Prakash with the present management. Continue bilevel positive airway pressure for now. Keep n.p.o. Procalcitonin and ProBNP in the morning. Patient is a do not resuscitate and do not intubate. Need to clarify whether decision makers how aggressive we need to be, should we get nasogastric tube feeding. Last admission, gastrotomy tube was denied. Follow up labs in the morning. Keep her head at 45 degrees. Thank you and we will follow with you. Rosie Gutierres MD
[2017-04-08] MEDS: Albuterol-Ipratrop 3 mg / 0.5 (3 ml) UD IH SCH ×4 (02:40→19:42)
[2017-04-08] MEDS: Divalproex 125 mg EC Sprinkle Cap PO SCH ×3 (05:51→23:22)
[2017-04-08 08:19] LABS: HEMOGLOBIN 9.7 g/dL (12.0-16.0); MEAN CELL VOLUME 104.7 fl (80.0-105.0); MEAN CORPUSCULAR HEMOGLOBIN 32.8 pg (25.0-35.0); MEAN CORPUSCULAR HGB CONC 31.3 g/dl (31.0-37.0); MEAN PLATELET VOLUME 9.7 fl (7.0-11.0); RBC 2.96 10^6/uL (3.5-6.1); RED CELL DISTRIBUTION WIDTH 15.2 % (11.5-14.5); WHITE BLOOD COUNT 12.6 10^3/ul (4.5-11.0)
[2017-04-08 09:23] LABS: ALB/GLOB RATIO 0.8 (1.1-1.8); ALBUMIN 2.4 g/dL (3.0-4.8); CALCIUM 11.5 mg/dL (8.4-10.5)
[2017-04-08] MEDS: Sodium Chloride 0.9% 1,000 ML IV SCH ×2 (10:05→23:22)
[2017-04-08] MEDS: Multivitamin Vitamin B Complex (Nephro-Vite) Tab PO SCH (12:17)
[2017-04-08] MEDS: Prostat 15 g packet PO SCH (12:17)
[2017-04-08] MEDS ORDERED: Dextrose 50% SYRINGE Inj (50 ml) IVP PRN (22:41)
[2017-04-08] MEDS ORDERED: Dextrose 50% SYRINGE Inj (50 ml) ONE (22:47)
--- NOTE | 2017-04-09 00:48 | PN ---
DATE: 04/08/2017 PULMONARY PROGRESS NOTE REFERRING PHYSICIAN: Dr. Prakash. SUBJECTIVE: She is lying in the bed, head at 45 degrees, been on high flow oxygen. Able to eat a few spoon of food. Still sleepy, arousable, confused. No hemoptysis, no emesis, no hematuria, no diarrhea reported. OBJECTIVE: GENERAL: In no acute distress. VITAL SIGNS: Temperature is 98, heart rate 99, respiratory rate is 20, blood pressure 144/80, been on noninvasive ventilation since yesterday. HEENT: Dry mucous membranes. NECK: Supple. No JVD. LUNGS: Has a few crackles, scattered rhonchi. HEART: S1 and S2. ABDOMEN: Soft, nontender. No organomegaly. Has a decubitus ulcer. EXTREMITIES: There is no edema. NEUROLOGIC: Lethargic, awake, confused. MEDICATIONS: She is on Cardizem 60 mg twice a day, clonidine 0.2 mg patch q. 7 days, clindamycin 600 mg q. 8 hours, Colace 200 mg daily, Depakote 250 mg q.8 hours, trazodone 50 mg at bedtime, DuoNeb q.6 hours, Vitamin B Complex, vitamin C, folic acid 1 tab daily, Pepcid 40 mg at bedtime, Senokot p.r.n. basis, IV fluid normal saline 80 mL per hour, Tylenol p.r.n. LABORATORY DATA: Shows hemoglobin 9.7, hematocrit 31.0, WBC 12.6, platelet is 229. Sodium 149, potassium 4.1, chloride 109, bicarbonate 33, BUN 35, creatinine 1.6, glucose 72, calcium 11.5, AST 29, ALT 26, alkaline phosphatase is 84. ProBNP is 3320, albumin 2.4. Procalcitonin 0.65. Microbiology: Blood culture is negative. IMPRESSION AND PLAN: Respiratory failure, currently noninvasive ventilation, probably have a component of aspiration pneumonia, hypertension, malnutrition, gastroesophageal reflux disease, reoccurring urinary tract infection, decubitus ulcer. I spoke to Dr. Prakash in detail who spoke to patient's son. Surgical consult had been called to debride the wound and ulcer. Gastroenterology consult had been called to place the G-tube. Keep head elevated at 45 degrees. Gastric prophylaxis. Sequential compression device to lower extremity. Continue clindamycin. SHE HAS PENICILLIN ALLERGY. Follow up labs in the morning. Patient is switched to nasal cannula with 4 to 5 liter. Pulse around 92%. We will titrate FiO2 to . Thank you and we will follow with you. Rosie Gutierres MD
[2017-04-09] MEDS: Albuterol-Ipratrop 3 mg / 0.5 (3 ml) UD IH SCH ×4 (02:26→20:29)
[2017-04-09] MEDS: Divalproex 125 mg EC Sprinkle Cap PO SCH ×3 (05:08→22:00)
[2017-04-09 07:28] LABS: HEMOGLOBIN 9.9 g/dL (12.0-16.0); MEAN CELL VOLUME 105.9 fl (80.0-105.0); MEAN CORPUSCULAR HEMOGLOBIN 32.4 pg (25.0-35.0); MEAN CORPUSCULAR HGB CONC 30.6 g/dl (31.0-37.0); MEAN PLATELET VOLUME 9.9 fl (7.0-11.0); RBC 3.06 10^6/uL (3.5-6.1); RED CELL DISTRIBUTION WIDTH 15.1 % (11.5-14.5); WHITE BLOOD COUNT 11.3 10^3/ul (4.5-11.0)
--- NOTE | 2017-04-09 07:38 | HP ---
CHIEF COMPLAINT: Shortness of breath. HISTORY OF PRESENT ILLNESS: Ms. Maria Elena Ng is an 87 years old female with past medical history of dementia, hypertension, GERD, UTI, sacral decubitus ulcer stage IV, agonal breathing, pulse oximetries are dropping into 50s and 60s. Patient is nonverbal. According to the nursing staff's document, patient's oxygen saturation was in 80s and she is nonverbal at rest, lying. Patient is a resident of [facility]. Patient is seen and examined in the ER, getting oxygen with BiPAP. She is DNR and DNI. Admitted the patient to the telemetry. No fever. No chills. No headache, no dizziness. PAST MEDICAL HISTORY: Hypertension, pneumonia, dementia, seizures, sacral decubitus ulcer because she is moving much, the patient has a stage IV ulcer, gastroesophageal reflux disease, history of urinary tract infection. HABITS: No smoking. No drugs. No ethanol. ALLERGIES: PATIENT IS ALLERGIC TO PENICILLIN. HOME MEDICATIONS: Cardizem, Depakote, Colace, folic acid, 325, albuterol. REVIEW OF SYSTEMS: Patient is examined on the bedside in the ER, having BiPAP. Looks a little bit better than when she came. No fever. No chills. No headache. No dizziness. No hematuria or hematochezia. PHYSICAL EXAMINATION: VITAL SIGNS: Temperature 97.1, pulse 110, respiratory rate 18, blood pressure 140/78, and pulse oximetry 100%. HEENT: Head: Normocephalic and atraumatic. Eyes: PERRLA. Extraocular muscles intact. Conjunctivae clear. Nose: Patent. NECK: Supple. No carotid bruit, JVD, or thyromegaly. CHEST: Bilaterally symmetrical. HEART: S1 and S2 positive. LUNGS: Clear to auscultation. ABDOMEN: Soft. Bowel sounds are present. No organomegaly. EXTREMITIES: No edema, no cyanosis. NEUROLOGIC: Patient is alert. Moving all 4 extremities. No focal deficit. ASSESSMENT: An 87 years old female with history of dementia, who came to the emergency room with prior history of respiratory distress.had h/o decubetus ulcers . copd . htn , anemia . h/o repeated uti aspiration pneumonia , gerd , dyspepsia , getting anb. , id and pul on the case , PLAN: Patient is DNR/DNI. Continue present treatment. GI and DVT prophylaxes. Repeat labs. We will follow up. Bushra Prakash MD [facility]
[2017-04-09 07:55] LABS: ALB/GLOB RATIO 0.8 (1.1-1.8); ALBUMIN 2.3 g/dL (3.0-4.8); CALCIUM 11.4 mg/dL (8.4-10.5)
--- NOTE | 2017-04-09 10:49 | PN ---
DATE: 04/08/2017 SUBJECTIVE: The patient is an 87-year-old female. The patient was seen and examined on the bedside. Looking comfortable. No nausea, vomiting, diarrhea. No hematuria, hematochezia. No swelling of the leg. The patient is very poor historian. It looks like the patient does not have fever. No headache or dizziness. PHYSICAL EXAMINATION: VITAL SIGNS: Temperature 98.2, pulse 98, respiratory rate 18, blood pressure 108/51. HEENT: Head normocephalic, atraumatic. Eyes PERRLA. Extraocular muscles intact. Conjunctivae clear. Nose patent. Mucous membrane moist. NECK: Supple. No carotid bruit. No JVD or thyromegaly. CHEST: Bilaterally symmetrical. HEART: S1 and S2 positive. LUNGS: Clear to auscultation. ABDOMEN: Soft. Bowel sounds positive. No organomegaly. EXTREMITIES: No edema. No cyanosis, but lower extremities have contractures. NEUROLOGICAL: The patient is awake, alert , LABORATORY DATA: White blood cells 12.6, hemoglobin 9.7, hematocrit 31.0, platelets 229. Sodium 149, potassium 4.1, BUN 35, creatinine 1.6, calcium 11.5. MEDICATIONS: Cardizem,clindamycin, Depakote, trazodone, Pepcid, Senokot, Tylenol. ASSESSMENT AND PLAN: Ms. Maria Elena Ng is an 87-year-old lady with leukocytosis, anemia, hypernatremia, hyperchloremia, renal insufficiency, hypercalcemia, proteinuria, hematuria, history of chronic obstructive pulmonary disease, respiratory failure, rule out aspiration pneumonia, history of hypertension, malnutrition, gastroesophageal reflux disease, recent urinary tract infection. Continue bilevel positive airway pressure for now. The patient was n.p.o., then swallowing evaluation done. The patient passed the test; now, started pureed thick nectar diet. The patient is do not resuscitate and do not intubate. The patient has history of dysphagia. Family refused gastrotomy tube. Discussion was done with the nursing staff. Appreciate Dr. Gutierres's input. We will follow. Bushra Prakash MD [facility] # [id number] [facility]
[2017-04-09] MEDS: Prostat 15 g packet PO SCH (11:01)
[2017-04-09] MEDS: Multivitamin Vitamin B Complex (Nephro-Vite) Tab PO SCH (11:01)
[2017-04-09] MEDS: Dextrose 5%/0.9% NS 1,000 ML IV SCH (11:03)
--- NOTE | 2017-04-09 15:52 | CP.PCM.CON ---
History of Present Illness - History of Present Illness History of Present Illness: Palliative consult requested by Dr Irene Prakash Reason: Goals of care 87 year old female resident of [facility] who was sent with respiratory distress , altered mental status. NH did not report vomiting, diarrhea, chills, fever. Chest x ray showed moderate vascular congestion. Labs; leukocytosis, anemia, hypernatremia, MILLER, hypoalbunemia. PMHx: Alzheimer dementia, GERD,UTI,sacral decubiti,dysphagia, anorexia,cachexia. Social History: Non smoker, no alcohol or drug use. L Resident of [facility]. Family History: Non contributory Advance Care Planning: The patient is DNR/DNI. POA is Arnulfo Winters [phone] Review of Systems: per HPI, patient is non verbal Past Patient History - Infectious Disease Hx of Infectious Diseases: None - Tetanus Immunizations Tetanus Immunization: Unknown - Past Social History Smoking Status: Never Smoked - CARDIAC Hx Hypertension: Yes - PULMONARY Hx Pneumonia: Yes - NEUROLOGICAL Hx Alzheimer's Disease: Yes Hx Dementia: Yes Hx Seizures: Yes - INTEGUMENTARY Other/Comment: sacral decubitus right side with packing and on the coccyx area and stage III on the right montague - MUSCULOSKELETAL/RHEUMATOLOGICAL Hx Falls: No - GASTROINTESTINAL Hx Gastroesophageal Reflux: Yes - GENITOURINARY/GYNECOLOGICAL Hx Urinary Tract Infection: Yes - PSYCHIATRIC Hx Substance Use: No - SURGICAL HISTORY Hx Surgeries: No Meds Allergies/Adverse Reactions: Allergies Allergy/AdvReac Type Severity Reaction Status Date / Time Penicillins Allergy RASH Verified 04/07/17 10:37 - Medications Medications: Current Medications Acetaminophen (Tylenol 325mg Tab) 650 mg PO Q4 PRN PRN Reason: Fever >100.4 F Albuterol/Ipratropium (Duoneb 3 Mg/0.5 Mg (3 Ml) Ud) 3 ml IH [id number] [facility] Last Admin: 04/09/17 13:29 Dose: 3 ml Clonidine HCl (Catapres-Tts2 0.2 Mg/24 Hr) 1 patch TD Q7D@1000 [facility] Dextrose (Dextrose 50% Inj) 50 ml IVP Q6H PRN PRN Reason: Serum glucose Last Admin: 04/09/17 08:17 Dose: 50 ml Diltiazem HCl (Cardizem) 60 mg PO BID [facility] Last Admin: 04/09/17 11:01 Dose: Not Given Divalproex Sodium (Depakote Sprinkles) 250 mg PO Q8 [facility] PRN Reason: Protocol Last Admin: 04/09/17 13:28 Dose: Not Given Docusate Sodium (Colace Liquid) 200 mg PO HS PRN PRN Reason: Constipation Famotidine (Pepcid) 40 mg PO [facility] Last Admin: 04/08/17 23:22 Dose: Not Given Clindamycin Phosphate 600 mg/ (Sodium Chloride) 54 mls @ 102 mls/hr IVPB Q8 [facility] PRN Reason: Protocol Last Admin: 04/09/17 13:26 Dose: 102 mls/hr Dextrose/Sodium Chloride (Dextrose 5%/0.9% Ns 1000 Ml) 1,000 mls @ 80 mls/hr IV .[id number] [facility] Last Admin: 04/09/17 11:03 Dose: 80 mls/hr Sennosides (Senokot Tab) 17.2 mg PO [facility] Last Admin: 04/08/17 22:00 Dose: Not Given Trazodone HCl (Desyrel) 50 mg PO [facility] Last Admin: 04/08/17 23:22 Dose: Not Given Vitamin B Complex/Vit C/Folic Acid (Nephro-Cady) 1 tab PO DAILY [facility] Last Admin: 04/09/17 11:01 Dose: Not Given Physical Exam - Constitutional Appears: Cachectic, Chronically Ill - Head Exam Head Exam: NORMOCEPHALIC - Eye Exam Eye Exam: Normal appearance Additional comments: sluggish - ENT Exam ENT Exam: Mucous Membranes Moist - Neck Exam Neck exam: Positive for: Normal Inspection - Respiratory Exam Respiratory Exam: Accessory Muscle Use, Decreased Breath Sounds Additional comments: high flow O2 - Cardiovascular Exam Cardiovascular Exam: REGULAR RHYTHM, +S1, +S2 - GI/Abdominal Exam GI & Abdominal Exam: Diminished Bowel Sounds, Soft - Extremities Exam Additional comments: extremities contracted - Neurological Exam Neurological exam: Altered - Skin Skin Exam: Dry, Pallor Additional comments: sacral decubiti Results - Vital Signs Recent Vital Signs: Last Vital Signs Temp 97.5 F L 04/09/17 12:00 Pulse 85 04/09/17 14:00 Resp 16 04/09/17 13:31 BP 134/63 04/09/17 12:00 Pulse Ox 98 04/09/17 06:00 - Labs Result Diagrams: 04/09/17 06:45 04/09/17 06:45 Labs: Laboratory Results - last 24 hr 04/08/17 04/08/17 04/09/17 07:30 22:29 00:01 WBC RBC Hgb Hct MCV MCH MCHC RDW Plt Count MPV Sodium Potassium Chloride Carbon Dioxide Anion Gap BUN Creatinine Est GFR ( Amer) Est GFR (Non-Af Amer) POC Glucose (mg/dL) 47 L 124 H Random Glucose Calcium Total Bilirubin AST ALT Alkaline Phosphatase Total Protein Albumin Globulin Albumin/Globulin Ratio Procalcitonin 0.65 H 04/09/17 04/09/17 04/09/17 06:45 06:45 07:12 WBC 11.3 H RBC 3.06 L Hgb 9.9 L Hct 32.4 L MCV 105.9 H MCH 32.4 MCHC 30.6 L RDW 15.1 H Plt Count 222 MPV 9.9 Sodium 150 H Potassium 4.1 Chloride 112 H Carbon Dioxide 29 Anion Gap 13 BUN 40 H Creatinine 1.6 H Est GFR ( Amer) 37 Est GFR (Non-Af Amer) 30 POC Glucose (mg/dL) 71 Random Glucose 75 Calcium 11.4 H Total Bilirubin 0.4 AST 19 ALT 24 Alkaline Phosphatase 94 Total Protein 5.2 L Albumin 2.3 L Globulin 2.9 Albumin/Globulin Ratio 0.8 L Procalcitonin 04/09/17 10:56 WBC RBC Hgb Hct MCV MCH MCHC RDW Plt Count MPV Sodium Potassium Chloride Carbon Dioxide Anion Gap BUN Creatinine Est GFR ( Amer) Est GFR (Non-Af Amer) POC Glucose (mg/dL) 101 Random Glucose Calcium Total Bilirubin AST ALT Alkaline Phosphatase Total Protein Albumin Globulin Albumin/Globulin Ratio Procalcitonin Assessment & Plan - Assessment and Plan (Free Text) Assessment: 87 year old female with history of dementia, dysphagia, frequent UTI, malnutrition who was sent from [facility] with respiratory failure, altered mental status. The patient is non verbal. Contracted, lying in position. Responds to painful stimuli. High flow O2 in use I spoke with patients POA, Mr Arnulfo Winters and his Liliam via phone. Family is aware that patients prognosis is very poor. Family affirms patient is DNR/ DNI. Family does not want BIPAP. Family does not want feeding tube. Family does not want invasive testing or procedures. LORRIE is flying in from [place]. He is expected to arrive tomorrow morning. Family want comfort measures. Family requesting a business support liaison for last rites> Time spent in goals of care discussion with family, 20 minutes Plan: Palliative support in establishing goals of care DNR/DNI No PEG No BIPAP
--- NOTE | 2017-04-09 22:06 | CP.PCM.PN ---
<Margoth Arechiga - Last Filed: 04/09/17 22:02> Subjective - Date & Time of Evaluation Date of Evaluation: 04/09/17 Time of Evaluation: 11:40 - Subjective Subjective: Chief Complaint: shortness of breath 87 yr female resident of [facility] w/ history of Dementia, HTN, GERD, UTI, decubitus ulcer (sacral/coccyx & R montague). Pt admitted to [facility] for shortness of breath, respiratory distress, and AMS. Pt is non-verbal and poor historian due to comorbidities. Arnulfo Winters, nephew, is patient's POA who resides in [place]. Per, pt's living will, G-tube has been refused. Pt is DNR/DNI. Objective - Vital Signs/Intake and Output Vital Signs (last 24 hours): Temp Pulse Resp BP Pulse Ox 99.7 F H 80 18 147/66 94 L 04/09/17 16:00 04/09/17 18:00 04/09/17 16:00 04/09/17 17:30 04/09/17 18:00 Intake and Output: 04/09/17 04/10/17 18:59 06:59 Intake Total 0 Balance 0 - Medications Medications: Current Medications Acetaminophen (Tylenol 325mg Tab) 650 mg PO Q4 PRN PRN Reason: Fever >100.4 F Albuterol/Ipratropium (Duoneb 3 Mg/0.5 Mg (3 Ml) Ud) 3 ml IH [id number] [facility] Last Admin: 04/09/17 20:29 Dose: 3 ml Clonidine HCl (Catapres-Tts2 0.2 Mg/24 Hr) 1 patch TD Q7D@1000 [facility] Dextrose (Dextrose 50% Inj) 50 ml IVP Q6H PRN PRN Reason: Serum glucose Last Admin: 04/09/17 08:17 Dose: 50 ml Diltiazem HCl (Cardizem) 60 mg PO BID [facility] Last Admin: 04/09/17 17:30 Dose: Not Given Divalproex Sodium (Depakote Sprinkles) 250 mg PO Q8 [facility] PRN Reason: Protocol Last Admin: 04/09/17 13:28 Dose: Not Given Docusate Sodium (Colace Liquid) 200 mg PO HS PRN PRN Reason: Constipation Clindamycin Phosphate 600 mg/ (Sodium Chloride) 54 mls @ 102 mls/hr IVPB Q8 [facility] PRN Reason: Protocol Last Admin: 04/09/17 21:51 Dose: 102 mls/hr Dextrose/Sodium Chloride (Dextrose 5%/0.9% Ns 1000 Ml) 1,000 mls @ 80 mls/hr IV .[id number] [facility] Last Admin: 04/09/17 11:03 Dose: 80 mls/hr Sennosides (Senokot Tab) 17.2 mg PO HS [facility] Last Admin: 04/08/17 22:00 Dose: Not Given - Labs Labs: 04/09/17 06:45 04/09/17 06:45 PT 11.8 SECONDS (9.4-12.5) 04/07/17 10:45 INR 1.03 (0.93-1.08) 04/07/17 10:45 APTT 32.7 Seconds (25.1-36.5) 04/07/17 10:45 - Constitutional Appears: No Acute Distress, Chronically Ill - Head Exam Head Exam: ATRAUMATIC, NORMAL INSPECTION, NORMOCEPHALIC - Eye Exam Eye Exam: EOMI, Normal appearance, PERRL Pupil Exam: NORMAL ACCOMODATION, PERRL - ENT Exam ENT Exam: Mucous Membranes Moist, Normal Exam - Neck Exam Neck Exam: Normal Inspection - Respiratory Exam Respiratory Exam: Rhonchi - Cardiovascular Exam Cardiovascular Exam: REGULAR RHYTHM, +S1, +S2. absent: Murmur - GI/Abdominal Exam GI & Abdominal Exam: Soft, Normal Bowel Sounds. absent: Tenderness - Exam Additional comments: mayorga catheter in place. - Extremities Exam Additional comments: R montague stage III - Back Exam Additional comments: unstageable decubitus ulcer on sacral/coccyx - Neurological Exam Neurological Exam: Altered - Psychiatric Exam Psychiatric exam: Normal Affect, Normal Mood - Skin Skin Exam: Pallor, Warm Assessment and Plan (1) Leukocytosis Status: Acute (2) Hyperchloremia Status: Acute (3) Hypoalbuminemia due to protein-calorie malnutrition Status: Acute (4) Proteinuria Status: Acute (5) Hematuria Status: Acute (6) CHF (congestive heart failure) Status: Acute (7) Hypernatremia Status: Acute (8) Respiratory distress Status: Acute (9) MILLER (acute kidney injury) Status: Acute (10) Altered mental status Status: Acute (11) Anemia Status: Acute (12) Hypercalcemia Status: Acute - Assessment and Plan (Free Text) Plan: IV clindamycin. Culture: urine NEGATIVE, blood NEGATIVE. High flow oxygen. Clonidine patch. GI/VTE prophlyaxis. Aspiration risk. Prognosis is poor. Consults: Pulmo - Dr. Gutierres Palliative - DIRECTOR OF ANCILLARY SERVICES. [place] Reviewed: CXR = moderate vascular congestion ECG = ABNORMAL, SR w. PAC, L axis deviation, nonspecific intravebtricular block , cannot rule out anteroseptal infarct <Bushra Prakash - Last Filed: 04/10/17 17:27> Objective - Vital Signs/Intake and Output Vital Signs (last 24 hours): Temp Pulse Resp BP Pulse Ox 100.2 F H 97 H 22 165/84 H 98 04/10/17 11:57 04/10/17 11:57 04/10/17 15:54 04/10/17 11:57 04/10/17 11:57 Intake and Output: 04/10/17 04/10/17 06:59 18:59 Intake Total 880 0 Output Total 50 100 Balance 830 -100 - Medications Medications: Current Medications Acetaminophen (Tylenol 325mg Tab) 650 mg PO Q4 PRN PRN Reason: Fever >100.4 F Acetaminophen (Tylenol 650 Mg Supp) 650 mg RC Q4H PRN PRN Reason: Fever >100.4 F Last Admin: 04/10/17 05:48 Dose: 650 mg Albuterol/Ipratropium (Duoneb 3 Mg/0.5 Mg (3 Ml) Ud) 3 ml IH [id number] [facility] Last Admin: 04/10/17 13:03 Dose: 3 ml Clonidine HCl (Catapres-Tts2 0.2 Mg/24 Hr) 1 patch TD Q7D@1000 [facility] Dextrose (Dextrose 50% Inj) 50 ml IVP Q6H PRN PRN Reason: Serum glucose Last Admin: 04/09/17 08:17 Dose: 50 ml Diltiazem HCl (Cardizem) 60 mg PO BID [facility] Last Admin: 04/10/17 17:03 Dose: Not Given Divalproex Sodium (Depakote Sprinkles) 250 mg PO Q8 [facility] PRN Reason: Protocol Last Admin: 04/10/17 14:01 Dose: Not Given Docusate Sodium (Colace Liquid) 200 mg PO HS PRN PRN Reason: Constipation Clindamycin Phosphate 600 mg/ (Sodium Chloride) 54 mls @ 102 mls/hr IVPB Q8 [facility] PRN Reason: Protocol Last Admin: 04/10/17 14:00 Dose: 102 mls/hr Dextrose/Sodium Chloride (Dextrose 5%/0.9% Ns 1000 Ml) 1,000 mls @ 80 mls/hr IV .[id number] [facility] Last Admin: 04/10/17 14:01 Dose: 80 mls/hr Sennosides (Senokot Tab) 17.2 mg PO HS [facility] Last Admin: 04/09/17 22:00 Dose: Not Given - Labs Labs: 04/09/17 06:45 04/09/17 06:45 PT 11.8 SECONDS (9.4-12.5) 04/07/17 10:45 INR 1.03 (0.93-1.08) 04/07/17 10:45 APTT 32.7 Seconds (25.1-36.5) 04/07/17 10:45 Assessment and Plan - Assessment and Plan (Free Text) Plan: 87 yr female resident of [facility] w/ history of Dementia, HTN, GERD, UTI, decubitus ulcer (sacral/coccyx & R montague). Pt admitted to [facility] for shortness of breath, respiratory distress, and AMS. Pt is non-verbal and poor historian due to comorbidities. Arnulfo Winters, nephew, is patient's POA who resides in [place]. Per, pt's living will, G-tube has been refused. Pt is DNR/DNI.pt is seen and examined at bed side , looking comfortable . agreed all above , chart , sary and labs noted , will f/u
--- NOTE | 2017-04-09 23:30 | CP.PCM.PN ---
Subjective - Date & Time of Evaluation Date of Evaluation: 04/09/17 Time of Evaluation: 23:29 - Subjective Subjective: Nurse calls and tells that patient's temp is 101.4*F, she is lethargic, has an order for PO tylenol but can not take PO. Requests for a tylenol suppository. Patient is lethargic. Medical record was reviewed. [facility] is going to be hospice. This 87 year old woman was admitted with agonal breathing, is non verbal. Has PMH of HTN, GERD, UTI, sacral decubetus stage IV, dementia, seizure. Objective - Vital Signs/Intake and Output Vital Signs (last 24 hours): Temp Pulse Resp BP Pulse Ox 99.7 F H 80 18 147/66 94 L 04/09/17 16:00 04/09/17 18:00 04/09/17 16:00 04/09/17 17:30 04/09/17 18:00 Intake and Output: 04/09/17 04/10/17 18:59 06:59 Intake Total 0 Balance 0 - Medications Medications: Current Medications Acetaminophen (Tylenol 325mg Tab) 650 mg PO Q4 PRN PRN Reason: Fever >100.4 F Albuterol/Ipratropium (Duoneb 3 Mg/0.5 Mg (3 Ml) Ud) 3 ml IH [id number] [facility] Last Admin: 04/09/17 20:29 Dose: 3 ml Clonidine HCl (Catapres-Tts2 0.2 Mg/24 Hr) 1 patch TD Q7D@1000 [facility] Dextrose (Dextrose 50% Inj) 50 ml IVP Q6H PRN PRN Reason: Serum glucose Last Admin: 04/09/17 08:17 Dose: 50 ml Diltiazem HCl (Cardizem) 60 mg PO BID [facility] Last Admin: 04/09/17 17:30 Dose: Not Given Divalproex Sodium (Depakote Sprinkles) 250 mg PO Q8 [facility] PRN Reason: Protocol Last Admin: 04/09/17 13:28 Dose: Not Given Docusate Sodium (Colace Liquid) 200 mg PO HS PRN PRN Reason: Constipation Clindamycin Phosphate 600 mg/ (Sodium Chloride) 54 mls @ 102 mls/hr IVPB Q8 [facility] PRN Reason: Protocol Last Admin: 04/09/17 21:51 Dose: 102 mls/hr Dextrose/Sodium Chloride (Dextrose 5%/0.9% Ns 1000 Ml) 1,000 mls @ 80 mls/hr IV .[id number] [facility] Last Admin: 04/09/17 11:03 Dose: 80 mls/hr Sennosides (Senokot Tab) 17.2 mg PO HS [facility] Last Admin: 04/08/17 22:00 Dose: Not Given - Labs Labs: 04/09/17 06:45 04/09/17 06:45 PT 11.8 SECONDS (9.4-12.5) 04/07/17 10:45 INR 1.03 (0.93-1.08) 04/07/17 10:45 APTT 32.7 Seconds (25.1-36.5) 04/07/17 10:45 - Constitutional Appears: No Acute Distress - Head Exam Head Exam: ATRAUMATIC, NORMAL INSPECTION, NORMOCEPHALIC - Eye Exam Eye Exam: Normal appearance - ENT Exam ENT Exam: Mucous Membranes Dry - Neck Exam Neck Exam: Normal Inspection - Respiratory Exam Respiratory Exam: NORMAL BREATHING PATTERN - Cardiovascular Exam Cardiovascular Exam: absent: JVD - GI/Abdominal Exam GI & Abdominal Exam: absent: Distended - Rectal Exam Rectal Exam: Deferred - Exam Additional comments: deferred. - Extremities Exam Extremities Exam: Normal Inspection - Back Exam Back Exam: NORMAL INSPECTION - Neurological Exam Neurological Exam: Altered - Psychiatric Exam Psychiatric exam: Depressed - Skin Skin Exam: Normal Color Assessment and Plan - Assessment and Plan (Free Text) Assessment: Fever. Sepsis. HTN. PNA. Seizure. Sacral decubetus. Plan: Tylenol 650 mg rectal suppository as ordered.
--- NOTE | 2017-04-09 23:39 | PN ---
DATE: 04/09/2017 PULMONARY PROGRESS NOTE REFERRING PHYSICIAN: Dr. Bushra Prakash. SUBJECTIVE: She is very lethargic, on high-flow nasal cannula oxygen, but arousable. Cannot take p.o. intake. No hemoptysis, no hematemesis, and no hematuria. No diarrhea reported. PHYSICAL EXAMINATION: GENERAL: Lethargic, arousable. VITAL SIGNS: Temperature is 99, heart rate is 84, respiratory rate is 20, blood pressure 147/66, and pulse ox 94% on high-flow nasal cannula oxygen. HEENT: Moist mucous membrane. NECK: Supple. No JVD. LUNGS: Have a poor airflow with scattered rhonchi. HEART: S1 and S2. ABDOMEN: Soft, nontender, and nondistended. EXTREMITIES: There is no edema. NEUROLOGIC: Lethargic, arousable. LABORATORY DATA: Shows hemoglobin 9.9. hematocrit 32.4, WBC 11.3, and platelet count is 222. Sodium 150, potassium 4.1, chloride 112, bicarbonate 29, BUN 40, creatinine 1.6, glucose 103, calcium is 11.4, total bilirubin is 0.4. AST is 19, ALT 24, alkaline phosphatase is 94, and albumin is 2.3. Microbiology: Blood culture and urine culture, there is no growth. MEDICATIONS: She is on Cardizem, which was not given; Catapres patch q.7 days; clindamycin 600 mg q.8 hours; Colace 200 mg daily; Depakote 250 mg q.8 hours; trazodone 50 mg at bedtime; IV fluid D5 normal saline 80 mL per hour; DuoNeb q.6 hours; Pepcid 40 mg daily; Tylenol on a p.r.n. basis. IMPRESSION AND PLAN: Respiratory failure, on high-flow nasal cannula oxygen; aspiration pneumonia; hypertension; malnutrition; gastroesophageal reflux disease; recurrent urinary tract infection; decubitus ulcer. The patient was seen by Palliative Care, appreciated her help. I also spoke with the nursing staff. Family is arriving tomorrow, considering hospice. We will discontinue p.o. medications. Continue supportive care. Thank you and we will follow with you. Rosie Gutierres MD
[2017-04-10] MEDS: Dextrose 5%/0.9% NS 1,000 ML IV SCH ×2 (00:59→14:01)
[2017-04-10] MEDS: Albuterol-Ipratrop 3 mg / 0.5 (3 ml) UD IH SCH ×4 (02:32→20:17)
[2017-04-10] MEDS: Prostat 15 g packet PO SCH (09:51)
[2017-04-10] MEDS: Divalproex 125 mg EC Sprinkle Cap PO SCH ×2 (14:01→21:34)
--- NOTE | 2017-04-11 00:45 | PN ---
DATE: 04/10/2017 PULMONARY PROGRESS NOTE REFERRING PHYSICIAN: Dr. Prakash. SUBJECTIVE: She is lethargic, on high-flow nasal cannula oxygen. Family was at bedside earlier today. The patient is DNR and DNI. Family considering hospice evaluation. No hemoptysis, no hematemesis, no hematuria, no diarrhea reported. OBJECTIVE: GENERAL: On high-flow oxygen, lethargic. VITAL SIGNS: Temperature is 100, heart rate is 93, respiratory rate is 24, blood pressure 165/84, pulse ox 98% on high-flow nasal cannula oxygen. HEENT: Moist mucous membrane. No ulcer or thrush noted. NECK: Supple. No JVD. LUNGS: Have a few scattered rhonchi. HEART: S1 and S2 ABDOMEN: Soft, nontender. Not distended. EXTREMITIES: No edema. NEUROLOGIC: Lethargic, has a decubitus ulcer. MEDICATIONS: She is on Cardizem 60 mg twice a day, Catapres 0.2 mg q. 7 days, clindamycin 600 mg q. 8 hours, Colace 200 mg at bedtime p.r.n., Depakote 250 mg q. 8 hours, IV fluid D5 normal saline 80 mL per hour, DuoNeb q. 6 hour, Tylenol p.r.n. LABORATORY DATA: Reviewed. Blood sugar was 105. Microbiology: Blood culture and urine culture, there is no growth. IMPRESSION AND PLAN: Respiratory failure, on high-flow nasal cannula oxygen; aspiration pneumonia; hypertension; malnutrition; gastroesophageal reflux disease; recurrent urinary tract infection; decubitus ulcer; spoke to nursing staff. Supportive care is being done. Waiting family's final decisions for further care for now. Continue antibiotics, supplement oxygen, IV fluid, aspiration precaution. Overall, poor prognosis. Thank you and we will follow with you. Rosie Gutierres MD
[2017-04-11] MEDS: Albuterol-Ipratrop 3 mg / 0.5 (3 ml) UD IH SCH ×4 (01:11→19:42)
--- NOTE | 2017-04-11 03:20 | PN ---
DATE: SUBJECTIVE: Patient is 87-year-old female. Patient is seen and examined at the bedside, looking comfortable. No nausea, vomiting or diarrhea. Patient is very lethargic, not able to give review of systems, but had low-grade fever, getting oxygen. No hematuria or hematochezia. PHYSICAL EXAMINATION VITAL SIGNS: Temperature 98.7, T-max 100.1, blood pressure 120/93, respiratory rate 18. HEENT: Head normocephalic, atraumatic. Eyes closed. Nose patent. NECK: Supple. No carotid bruit, JVD, or thyromegaly. CHEST: Bilaterally symmetrical. HEART: S1, S2 positive. LUNGS: Positive wheezing bilaterally. ABDOMEN: Soft. Bowel sounds present. No organomegaly. EXTREMITIES: No edema. No cyanosis. NEUROLOGIC: Patient is sleepy, is not able to move all extremities, is not able to obey the orders. MEDICATIONS: Cardizem, Catapres, clindamycin, docusate, Depakote, dextrose, albuterol, Senokot and Tylenol. LABORATORY DATA: White blood cell cells 11.3, hemoglobin 9.9, hematocrit 32.4, platelets 222. Glucose 109, 105, 111, 115, 103. ASSESSMENT AND PLAN: Ms. Maria Elena Ng is an 87-year-old lady with hyperglycemia, leukocytosis, anemia, proteinuria, hematuria, came with respiratory failure, is on high-flow nasal cannula oxygen, aspiration pneumonia, hypertension, malnutrition, gastroesophageal reflux disease, dyspepsia, recurrent urinary tract infection, sacral decubitus ulcer. Palliative team is on the case, doing evaluation. had discussion with Pippa Byers and she spoke to the family and I by myself spoke to the patient's nephew, Mr. Winters who came from [place] to take care of his aunt. Family yet to arrive from [place] today. Maybe we will make patient hospice in [facility] . Meanwhile gastrointestinal and deep venous thrombosis prophylaxis. Repeat labs. We are giving Tylenol. Bushra Prakash MD [facility]
[2017-04-11] MEDS: Dextrose 5%/0.9% NS 1,000 ML IV SCH (05:54)
[2017-04-11] MEDS: Divalproex 125 mg EC Sprinkle Cap PO SCH ×3 (05:54→22:15)
[2017-04-11] MEDS: Prostat 15 g packet PO SCH (10:05)
[2017-04-11 15:02] VITALS: O2SAT 96
--- NOTE | 2017-04-11 17:15 | CP.PCM.PN ---
<Margoth Arechiga - Last Filed: 04/11/17 17:12> Subjective - Date & Time of Evaluation Date of Evaluation: 04/11/17 Time of Evaluation: 12:00 - Subjective Subjective: Chief Complaint: shortness of breath 87 yr female resident of [facility] w/ history of Dementia, HTN, GERD, UTI, decubitus ulcer (sacral/coccyx & R montague). Pt admitted to [facility] for shortness of breath, respiratory distress, and AMS. Pt is awake, alert, and lying in position. Poor historian due to comorbidities. Arnulfo Winters, nephew, is patient's POA who resides in [place]. Per, pt' s living will, G-tube & bipap has been refused. Pt is DNR/DNI. High glow oxygen in place being tapered for discharge back to [facility] for Hospice care. Objective - Vital Signs/Intake and Output Vital Signs (last 24 hours): Temp Pulse Resp BP Pulse Ox 98.8 F 91 H 18 154/73 H 96 04/11/17 15:01 04/11/17 15:01 04/11/17 15:01 04/11/17 15:01 04/11/17 15:01 Intake and Output: 04/11/17 04/11/17 06:59 18:59 Intake Total 120 Output Total 400 Balance -280 - Medications Medications: Current Medications Acetaminophen (Tylenol 325mg Tab) 650 mg PO Q4 PRN PRN Reason: Fever >100.4 F Acetaminophen (Tylenol 650 Mg Supp) 650 mg RC Q4H PRN PRN Reason: Fever >100.4 F Last Admin: 04/10/17 05:48 Dose: 650 mg Albuterol/Ipratropium (Duoneb 3 Mg/0.5 Mg (3 Ml) Ud) 3 ml IH [id number] ROXANNA Last Admin: 04/11/17 13:25 Dose: 3 ml Clonidine HCl (Catapres-Tts2 0.2 Mg/24 Hr) 1 patch TD Q7D@1000 ROXANNA Dextrose (Dextrose 50% Inj) 50 ml IVP Q6H PRN PRN Reason: Serum glucose Last Admin: 04/09/17 08:17 Dose: 50 ml Diltiazem HCl (Cardizem) 60 mg PO BID [facility] Last Admin: 04/11/17 10:05 Dose: Not Given Divalproex Sodium (Depakote Sprinkles) 250 mg PO Q8 [facility] PRN Reason: Protocol Last Admin: 04/11/17 14:00 Dose: Not Given Docusate Sodium (Colace Liquid) 200 mg PO HS PRN PRN Reason: Constipation Clindamycin Phosphate 600 mg/ (Sodium Chloride) 54 mls @ 102 mls/hr IVPB Q8 [facility] PRN Reason: Protocol Last Admin: 04/11/17 13:47 Dose: 102 mls/hr Dextrose/Sodium Chloride (Dextrose 5%/0.9% Ns 1000 Ml) 1,000 mls @ 80 mls/hr IV .[id number] [facility] Last Admin: 04/11/17 05:54 Dose: 80 mls/hr Sennosides (Senokot Tab) 17.2 mg PO HS [facility] Last Admin: 04/10/17 21:36 Dose: Not Given - Labs Labs: 04/09/17 06:45 04/09/17 06:45 PT 11.8 SECONDS (9.4-12.5) 04/07/17 10:45 INR 1.03 (0.93-1.08) 04/07/17 10:45 APTT 32.7 Seconds (25.1-36.5) 04/07/17 10:45 - Constitutional Appears: No Acute Distress, Confused, Cachectic, Chronically Ill - Head Exam Head Exam: ATRAUMATIC, NORMAL INSPECTION, NORMOCEPHALIC - Eye Exam Eye Exam: EOMI, Normal appearance, PERRL Pupil Exam: NORMAL ACCOMODATION, PERRL - ENT Exam ENT Exam: Mucous Membranes Moist, Normal Exam - Neck Exam Neck Exam: Full ROM, Normal Inspection. absent: Lymphadenopathy - Respiratory Exam Respiratory Exam: Decreased Breath Sounds - GI/Abdominal Exam GI & Abdominal Exam: Soft, Normal Bowel Sounds. absent: Tenderness - Exam Additional comments: mayorga catheter in place. - Extremities Exam Additional comments: R montague stage III - Back Exam Additional comments: unstageable decubitus ulcer on sacral/coccyx - Neurological Exam Neurological Exam: Alert, Awake - Psychiatric Exam Psychiatric exam: Anxious, Normal Affect, Normal Mood - Skin Skin Exam: Dry, Pallor, Warm Assessment and Plan (1) Leukocytosis Status: Acute (2) Hyperchloremia Status: Acute (3) Hypoalbuminemia due to protein-calorie malnutrition Status: Acute (4) Proteinuria Status: Acute (5) Hematuria Status: Acute (6) CHF (congestive heart failure) Status: Acute (7) Hypernatremia Status: Acute (8) Respiratory distress Status: Acute (9) MILLER (acute kidney injury) Status: Acute (10) Altered mental status Status: Acute (11) Anemia Status: Acute (12) Hypercalcemia Status: Acute - Assessment and Plan (Free Text) Plan: High flow oxygen titration. Pneumonia: IV clindamycin on board. Culture: urine NEGATIVE, blood NEGATIVE. Clonidine patch. GI/VTE prophlyaxis. Aspiration risk. Prognosis is poor. Consults: Pulmo - Dr. Gutierres Palliative - [facility]. [facility] Cardio - Dr. Gonzalez Reviewed: CXR = moderate vascular congestion ECG = ABNORMAL, SR w. PAC, L axis deviation, nonspecific intravebtricular block , cannot rule out anteroseptal infarct <Bushra Prakash - Last Filed: 04/12/17 22:43> Objective - Vital Signs/Intake and Output Vital Signs (last 24 hours): Temp Pulse Resp BP Pulse Ox 97.8 F 76 22 176/92 H 96 04/12/17 07:30 04/12/17 10:12 04/12/17 07:30 04/12/17 10:12 04/12/17 07:30 - Labs Labs: 04/09/17 06:45 04/09/17 06:45 PT 11.8 SECONDS (9.4-12.5) 04/07/17 10:45 INR 1.03 (0.93-1.08) 04/07/17 10:45 APTT 32.7 Seconds (25.1-36.5) 04/07/17 10:45 Assessment and Plan - Assessment and Plan (Free Text) Plan: 87 yr female resident of [facility] w/ history of Dementia, HTN, GERD, UTI, decubitus ulcer (sacral/coccyx & R montague). Pt admitted to [facility] for shortness of breath, respiratory distress, and AMS. Pt is awake, alert, and lying in position. Poor historian due to comorbidities. Arnulfo Winters, nephew, is patient's POA who resides in [place]. Per, pt' s living will, G-tube & bipap has been refused. Pt is DNR/DNI. High glow oxygen in place being tapered for discharge back to [facility] for Hospice care. pt is seen and examined at bed side . looking comfortable , agreed all above . chart meds and labs noted , will f/u
--- NOTE | 2017-04-11 19:39 | PN ---
DATE: PULMONARY PROGRESS NOTE REFERRING PHYSICIAN: Bushra Prakash MD SUBJECTIVE: She is lying in the bed, head at 45 degrees, lethargic, on high-flow nasal cannula oxygen, arousable, does not follow command. No hemoptysis, no hematemesis, no hematuria, no diarrhea. No leg pain or leg swelling. PHYSICAL EXAMINATION GENERAL: In no acute distress. VITAL SIGNS: Temperature is 98, heart rate is 91, respiratory rate is 18, blood pressure 154/73, pulse ox 96% on high-flow nasal cannula. HEENT: Moist mucous membrane. Small oral cavity. LUNGS: Have a scattered rhonchi. Poor airflow. HEART: S1 and S2. ABDOMEN: Soft, nontender. Not distended. EXTREMITIES: There is no edema. NEUROLOGIC: Lethargic, arousable, nonverbal. Does not follow command. MEDICATIONS: She is on Cardizem p.o., which is not given. Also on clonidine patch every 7 days, clindamycin 600 mg every 8 hours, Colace 200 mg daily, Depakote 250 mg every 8 hours, IV fluid, D5 normal saline 80 mL per hour, Tylenol p.r.n. LABORATORY DATA: Blood sugar this morning is 98. Microbiology: Blood culture and urine culture, there is no growth. IMPRESSION AND PLAN: Respiratory failure, on high-flow nasal cannula oxygen, aspiration pneumonia, hypertension, malnutrition, gastroesophageal reflux disease, recurrent urinary tract infection, decubiti ulcers. Patient is do not resuscitate and do not intubate. Respecting patient's wishes and family, we will continue supportive care, continue high-flow oxygen for now, bronchodilator, aspiration precaution. Continue antibiotics. Continue IV fluid. Keep head elevated at 45 degrees. Thank you and we will follow with you. Rosie Gutierres MD
[2017-04-12] MEDS: Divalproex 125 mg EC Sprinkle Cap PO SCH ×2 (00:28→06:02)
[2017-04-12] MEDS: Albuterol-Ipratrop 3 mg / 0.5 (3 ml) UD IH SCH ×2 (02:19→07:04)
[2017-04-12 07:38] VITALS: PULSE 76; RESP 22; TEMP 97.8
[2017-04-12] MEDS: Prostat 15 g packet PO SCH (10:05)
[2017-04-12 10:18] VITALS: BP 176/92
== END 2017-04-12 12:34 | DRG 177 ==
LOC: ED 10:32 → ERH 13:57 → 3RSO 16:09 → 5RNO 04-10 23:45
PROVIDERS: ADMIT Internal Medicine; ATTEND Internal Medicine
PROC: 5A09357 Assistance with Respiratory Ventilation, Less than 24 Consecutive Hours, Continuous Positive Airway Pressure (ICD-10-PCS; principal; 2017-04-07)
DX: J69.0 Pneumonitis due to inhalation of food and vomit (principal); J96.90 Respiratory failure, unspecified, unspecified whether with hypoxia or hypercapnia; L89.154 Pressure ulcer of sacral region, stage 4; E43 Unspecified severe protein-calorie malnutrition; L89.893 Pressure ulcer of other site, stage 3; N17.9 Acute kidney failure, unspecified; E87.0 Hyperosmolality and hypernatremia; R64 Cachexia; Z68.1 Body mass index [BMI] 19.9 or less, adult; R13.12 Dysphagia, oropharyngeal phase; I11.0 Hypertensive heart disease with heart failure; I50.9 Heart failure, unspecified; R56.9 Unspecified convulsions; D64.9 Anemia, unspecified; J44.9 Chronic obstructive pulmonary disease, unspecified; K21.9 Gastro-esophageal reflux disease without esophagitis; G30.9 Alzheimer's disease, unspecified; F02.80 Dementia in other diseases classified elsewhere, unspecified severity, without behavioral disturbance, psychotic disturbance, mood disturbance, and anxiety; R73.9 Hyperglycemia, unspecified; R31.9 Hematuria, unspecified; Z66 Do not resuscitate; Z88.0 Allergy status to penicillin; Z87.440 Personal history of urinary (tract) infections